=== PATIENT | male | born 1930 | race Caucasian/White ===

== ENCOUNTER 2017-02-25 10:28 | Inpatient (IN) ==
--- NOTE | 2017-02-25 10:44 | EKG Report ---
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
[2017-02-25 10:52] LABS: Basophils % 0.3 % (0.0-0.8); Eosinophils # 0.2 10*3/uL (0.0-0.87); Eosinophils % 2.6 % (0.00-10.9); Hematocrit 35.1 VOL% (42.0-52.0); Immature Granulocytes % 0.3 %; Immature Granulocytes Absolute 0.03 #; Lymphocytes # 1.2 10*3/uL (1.4-4.0); Lymphocytes % 13.5 % (21.2-54.2); Mean Corpuscular HGB Conc 34.2 GM/DL (32-36); Mean Corpuscular Hemoglobin 33 PG (27-34); Mean Platelet Volume 9.7 FL (9.6-12.0); Monocytes # 0.7 10*3/uL (0.11-0.8); Neutrophils # 6.8 10*3/uL (1.4-7.4); Neutrophils % 75.3 % (38.7-73.9); Platelet Count 158 T/CUMM (130-400); Red Blood Count 3.62 MC/CUMM (3.8-5.5); Red Cell Distribution Width 13.7 % (9.3-17.3); White Blood Count 9.1 T/CUMM (4-12)
[2017-02-25 11:24] LABS: Albumin 3.5 G/DL (3.4-5.0); Bilirubin,Total 0.4 MG/DL (0.2-1.0); Calcium 8.7 MG/DL (8.5-10.1); Magnesium 2.3 MG/DL (1.8-2.4); Osmolality,Calculated 285.7 MOS/KG (273-304); Potassium 4.4 MMOL/L (3.5-5.1); Total Protein 6.5 G/DL (6.4-8.3); Troponin I Only 0.043 NG/ML (0.00-0.045)
--- NOTE | 2017-02-25 11:38 | CT Report ---
History: Syncope Date: 02/25/2017 Study: CT head without contrast Comparison exam: No previous head CT available Transaxial CT sections were obtained through the head without IV contrast. This CT exam was performed using one or more the following dose reduction techniques: Automated exposure control, adjustment of the MA and/or KV according to patient size, or use of iterative reconstruction technique. The ventricles are midline in position without evidence of hydrocephalus. There is mild cerebral atrophy. There is no mass or parenchymal hemorrhage. There is no gross CT evidence of acute cortical stroke. There is a small amount of ill-defined low density in the periventricular white matter without mass effect compatible with changes of small vessel disease. There is no acute extra-axial hematoma. There is no acute abnormality of the calvarium. The right maxillary sinus is opacified where seen. Impression: No acute intracranial process Prominent right maxillary sinusitis. Clinical follow-up of this sinus disease is recommended, in order to help exclude the possibility of underlying sinus obstruction PROCEDURE INTERPRETED AT [facility] [place] DEPARTMENT OF RADIOLOGY Final Report Signed by: Dr. Janet Akers
--- NOTE | 2017-02-25 11:57 | Emergency Department Note ---
Edson Marcial Brittany, am scribing for, and in the presence of, Kaiser Brian MD 10:42. Roc Marcial Doug C, MD, personally performed the services described in this documentation, ascribed by Alanna Sandhu in my presence, and it is both accurate and complete . Arrival - Arrival Chief Complaint: Syncope Stated Complaint: syncopal episode ED Nursing Triage Note: pt reports he had a syncopal episode yesterday afternoon and fell first into a hot frying low. pt has gibbs to face. Mode of Arrival: Wheelchair Limitations: No Limitations Source: Patient, Significant other, RN Notes Reviewed Time Seen by Provider: 02/25/17 10:38 - History of Present Illness HPI Narrative: Patient 76-year-old white male who states he and his are in the kitchen cooking some fish when he had a syncopal episode. He fell forward and hit the top of the stove spilling fish onto the floor splashing some hot grease into his face. He had absolutely no symptoms prior to the syncopal episode his states he was unconscious for about 3 seconds. He did not have any seizure- like activity and states that he was awake and alert when he came to. He states he has absolutely no pain not even in the superficial gibbs on his face. He denies any neck or back discomfort his states he has been thinking clearly since this event. They decided not to come to the emergency room last night for some reason. Patient states that he noticed some difficulty with his vision all day yesterday and tells me he had a syncopal episode 6 months ago which was also preceded by some visual disturbance. He denies any chest pain or palpitations. He does not have any nausea, vomiting or diarrhea. There is no history of febrile illness. Onset (ago): day(s) (episode occurred yesterday) Allergies/Adverse Reactions: Allergies Allergy/AdvReac Type Severity Reaction Status Date / Time No Known Allergies Allergy Verified 04/14/16 16:21 Home Medications: Home Medications Medication Instructions Recorded Confirmed Type Allopurinol 100 mg PO DAILY 07/12/15 04/14/16 History Atorvastatin [Lipitor] 10 mg PO DAILY 07/12/15 04/14/16 History Carvedilol [Coreg] 25 mg PO BID 07/12/15 04/14/16 History Magnesium Oxide [Magnesium] 400 mg PO DAILY 07/12/15 04/14/16 History Niacin (Inositol Niacinate) 500 mg PO DAILY 07/12/15 04/14/16 History [Niacin 500 mg Capsule] Omeprazole [Prilosec] 20 mg PO BEDTIME 07/12/15 04/14/16 History Aspirin EC Tab 81 mg PO DAILY tablet 07/20/15 04/14/16 Rx Minoxidil [Loniten] 2.5 mg PO BID #60 tablet 07/20/15 04/14/16 Rx Nitroglycerin Sl Tab [Nitrostat] 0.4 mg SL Q5M PRN #25 tablet 07/20/15 04/14/16 Rx Clopidogrel [Plavix] 75 mg PO DAILY 01/18/16 04/14/16 History Isosorbide Dinitrate 10 mg PO BID 01/18/16 04/14/16 History Trazodone HCl 100 mg PO BEDTIME 01/18/16 04/14/16 History Pregabalin [Lyrica] 50 mg PO BID 04/14/16 04/14/16 History Albuterol/Ipratropium Neb [Duoneb] 3 ml RESP TX RT Q4H WA 04/27/16 Rx nebulization solution Alum/Mag/Simeth Max Str Liquid 30 ml PO Q4H PRN #0 udcup 04/27/16 Rx [Mylanta Max Strength Liquid] Bisoprolol [Zebeta] 2.5 mg PO DAILY tablet 04/27/16 Rx Cyclobenzaprine [Flexeril] 5 mg PO BEDTIME tablet 04/27/16 Rx Furosemide Tab [Lasix Tab] 40 mg PO DAILY tablet 04/27/16 Rx Iron (Carbonyl) [Feosol Natural 45 mg PO BID tablet 04/27/16 Rx Release Tab] Magnesium Hydroxide Susp [Milk of 30 ml PO BID PRN #0 udcup 04/27/16 Rx Magnesia] Sertraline [Zoloft] 25 mg PO BEDTIME tablet 04/27/16 Rx Spironolactone [Aldactone] 6.25 mg PO DAILY #30 tablet 04/27/16 Rx Review of System - Review of System 12 point system: reviewed and no additional remarkable complaints except as stated - Review of System Constitutional: Absent: chills, fever, weakness Eyes: Present: as per HPI, vision change Head/Ears/Nose/Throat: Absent: nasal drainage, sore throat Respiratory: Absent: respiratory distress Cardiovascular: Present: as per HPI, syncope. Absent: chest pain, palpitations Gastrointestinal: Present: as per HPI. Absent: abdominal pain, nausea, vomiting , diarrhea, constipation, melena, hematochezia Genitourinary male: Absent: urgency, dysuria, frequency Musculoskeletal: Absent: arm pain, back pain, leg pain, neck pain Skin: Present: as per HPI. Absent: rash Neurological: Present: as per HPI. Absent: headache, weakness, numbness, paresthesias Psychiatric: Absent: anxiety, depression Hematological/Lymphatic: Absent: easy bleeding, easy bruising Medical,Surgical,& Family Hx - Medical History Cardio: History of: CHF, CAD (prior [place] with stents), Hypertension, Cardiovascular Problems (status post cath with stents) Endocrine: History of: Dyslipidemia Rheumatology: History of;: Gout Renal: History of: Renal Failure (Baseline creatinine 1.5-1.7) - Surgical History Cardiac Surgeries: Sugical HX of: Cardiac Catheterization Abdominal Surgeries: Surgical HX of: Appendectomy Reproductive Surgeries: Surgical HX of;: Prostate Surgery - Family History Family History: Reports;: Family Cancer (brother skin ca), Family Heart Disease (brother cabg) - Social History Smoking Status: Unknown if ever smoked Exam Vital Signs: Vital Signs Temperature 97.8 F 02/25/17 10:28 Pulse Rate 77 02/25/17 10:28 Respiratory Rate 18 02/25/17 10:28 Blood Pressure 157/72 02/25/17 10:28 O2 Sat by Pulse Oximetry 98 02/25/17 10:28 - General General appearance: alert, in no apparent distress - Head Head exam: Present: normocephalic. Absent: atraumatic (patient has superficial gibbs diffusely over the face) - Eye Eye exam: Present: PERRL, EOMI - ENT ENT exam: Present: normal exam, normal oropharynx - Neck Neck exam: Present: normal inspection, full ROM, trachea midline - Chest Chest inspection: Present: normal inspection, symmetric chest wall rise - Respiratory Respiratory exam: Present: normal lung sounds bilaterally. Absent: rales, rhonchi, wheezes - Cardiovascular Cardiovascular exam: Present: regular rate, normal rhythm, murmur (4/6 systolic ejection murmur loudest at the left base). Absent: normal heart sounds - Abdominal Exam Abdominal exam: Present: soft, normal bowel sounds. Absent: distention, tenderness - Extremities Exam Extremities exam: Present: normal inspection - Back Exam Back exam: Present: normal inspection - Neurological Exam Neurological exam: Present: alert, oriented X3, CN II-XII intact. Absent: motor sensory deficit - Psychiatric Psychiatric exam: Present: normal affect, normal mood - Skin Skin exam: Present: warm, dry, other (patient has diffuse superficial gibbs over the face) Course Course Narrative: Patient's clinical presentation, laboratory regular findings were discussed with Brandon who is covering the hospitalist service. Patient will be seen here in the emergency room and evaluated for admission Results - Labs CBC & BMP: 02/25/17 10:45 02/25/17 10:45 Lab Results: I have reviewed the patients labs Labs: Laboratory Tests 02/25/17 02/25/17 02/25/17 10:45 10:45 10:45 WBC 9.1 RBC 3.62 L Hgb 12.0 L Hct 35.1 L MCV 97.0 MCH 33 MCHC 34.2 RDW 13.7 Plt Count 158 MPV 9.7 Neut % (Auto) 75.3 H Lymph % (Auto) 13.5 L [place] % (Auto) 8.0 Eos % (Auto) 2.6 Baso % (Auto) 0.3 Neut # (Auto) 6.8 Lymph # (Auto) 1.2 L [place] # (Auto) 0.7 Eos # (Auto) 0.2 Baso # (Auto) 0.0 Immature Gran % 0.3 Nucleated RBC % 0.0 Immature Gran # 0.03 Nucleated RBCs # 0.00 Sodium 138 Potassium 4.4 Chloride 102 Carbon Dioxide 28 Anion Gap 12.4 BUN 44 H Creatinine 1.70 H GFR Calculation 43 BUN/Creatinine Ratio 25.00 H Glucose 104 Calculated Osmolality 285.7 Calcium 8.7 Magnesium 2.3 Total Bilirubin 0.40 AST 15 ALT 18 Alkaline Phosphatase 83 Troponin I 0.043 B-Natriuretic Peptide 110 H Total Protein 6.5 Albumin 3.5 Globulin 3.0 Albumin/Globulin Ratio 1.1 - EKG EKG results: interpreted by KELLI, sinus rhythm (73 bpm) - Diagnostic Findings Procedure: Chest x-ray: report reviewed by me (No acute abnormality), CT: report reviewed by me (CT Head: No acute intracranial process. Prominent right maxillary sinusitis. Clinical follow-up of this sinus disease is recommended, in order to help exclude the possibility of underlying sinus obstruction.) Disposition Clinical Impression: Syncope Case discussed with: patient Disposition: Still a Patient Time of Disposition: 11:57
--- NOTE | 2017-02-25 12:46 | XRay Report ---
History: Syncope Date: 02/25/2017 Study: Chest x-ray AP portable Comparison exam: April 27, 2016 chest x-ray There is borderline cardiomegaly. There is no mediastinal mass. There is mild aortic arch calcification. The pulmonary vasculature is not engorged. There is some minimal parenchymal and pleural scarring in the lower left hemithorax. There is no acute infiltrate or gross layering pleural effusion. Osseous structures are unchanged with mild thoracic spondylosis. Prominent asymmetric degenerative changes of the right glenohumeral joint are noted, with prominent joint space narrowing and osteophyte formation. Impression: No definite acute cardiopulmonary process. Mild scarring in the lower left hemithorax. Degenerative changes of the right shoulder PROCEDURE INTERPRETED AT [facility] DEPARTMENT OF RADIOLOGY Final Report Signed by: Dr. Janet Akers
--- NOTE | 2017-02-25 12:53 | Hospitalist History & Physical ---
<Amol Damico - Last Filed: 02/25/17 15:20> Assessment and Plan (1) Syncope Status: Acute Assessment and plan: Admit to service. Telemetry monitoring. Orthostatic blood pressures. Bedrest. IV fluids. Consult cardiology to see. Current Visit: Yes (2) Chronic renal insufficiency, stage III (moderate) Status: Acute Current Visit: No (3) LEESA (obstructive sleep apnea) Status: Acute Current Visit: No (4) Hypertension Status: Acute Current Visit: No (5) CAD (coronary artery disease) Status: Chronic Current Visit: No History of Present Illness Chief complaint: syncopal episode History of present illness: Mr. Bull is a 86 year old white male with a history of syncope, hypertension , nstemi, CAD, CHF, pulmonary edema, and LEESA that presented to the ED today after a syncopal episode that occurred yesterday. According to patient and his , patient was sitting on a stool in front of the stove around 4 pm frying fish when he blacked out. Pt. stated that right before the incident he felt " a little dizzy" and his vision began to blur. The patient fell straight over onto the stove and his who was nearby was able to pull the hot grease off the stove. Pt. reportedly loss consciousness for about 3 seconds but came to. He has no recollection of incident. The patient did sustain 1st degree gibbs to his face. Pt. denies sustaining any other injuries. Pt. denies any head, neck or back discomfort. Pt also denied numbness, tingling, weakness, or tinnuitis before or after injury. Pt. does report having a similar issue about 6 months ago but did not seek medical attention. Currently in ED, pt. denies shortness of breath, chest pain, or vision loss, n,v. Pt's PCP is Dr. Stevens and he sees Dr. Wei for cardiac issues. Pt. will be admitted to the hospitalist service for eval and treatment. Home Medications Medication Instructions Recorded Confirmed Type Allopurinol 100 mg PO DAILY 07/12/15 02/25/17 History Atorvastatin [Lipitor] 10 mg PO DAILY 07/12/15 02/25/17 History Carvedilol [Coreg] 25 mg PO BID 07/12/15 02/25/17 History Omeprazole [Prilosec] 20 mg PO BEDTIME 07/12/15 02/25/17 History Aspirin EC Tab 81 mg PO DAILY tablet 07/20/15 02/25/17 Rx Nitroglycerin Sl Tab [Nitrostat] 0.4 mg SL Q5M PRN #25 tablet 07/20/15 02/25/17 Rx Clopidogrel [Plavix] 75 mg PO DAILY 01/18/16 02/25/17 History Furosemide Tab [Lasix Tab] 40 mg PO DAILY tablet 04/27/16 02/25/17 Rx Ferrous Sulfate [Ferrous Sulfate] 325 mg PO DAILY 02/25/17 02/25/17 History Finasteride 5 mg PO DAILY 02/25/17 02/25/17 History Gabapentin 300 mg PO BID 02/25/17 02/25/17 History Lisinopril 20 mg PO DAILY 02/25/17 02/25/17 History Multivitamin/Iron/Folic Acid 1 each PO DAILY 02/25/17 02/25/17 History [Centrum Complete Multivit Tab] Pramipexole Di-HCl [Pramipexole 0.5 mg PO DAILY 02/25/17 02/25/17 History Dihydrochloride] Allergies Allergy/AdvReac Type Severity Reaction Status Date / Time No Known Allergies Allergy Verified 04/14/16 16:21 Medical,Surgical,& Family Hx - Medical History Cardio: History of: CHF, CAD (prior [place] with stents), Hypertension, Cardiovascular Problems (status post cath with stents) Endocrine: History of: Dyslipidemia Rheumatology: History of;: Gout Renal: History of: Renal Failure (Baseline creatinine 1.5-1.7) Genitourinary: History of: Kidney Stones - Surgical History Cardiac Surgeries: Sugical HX of: Cardiac Catheterization Abdominal Surgeries: Surgical HX of: Appendectomy Reproductive Surgeries: Surgical HX of;: Prostate Surgery - Family History Family History: Reports;: Family Cancer (brother skin ca), Family Heart Disease (brother cabg) - Social History Smoking Status: Never smoker Frequency of Alcohol Use: None Type of Drug Use: None Marital Status: Lives With:: Spouse Functional capacity: independent ambulation - Constitutional Constitutional: Absent: chills, fever(s), headache(s), weakness - EENT Eyes: Present: blurry vision, loss of vision (before blacking out pt lost orders ) Ears: Present: decreased hearing. Absent: ear discharge Nose, mouth and throat: Absent: headache(s), sore throat - Cardiovascular Cardiovascular: Present: dyspnea on exertion. Absent: chest pain at rest, edema - Respiratory Respiratory: Present: dyspnea on exertion - Gastrointestinal Gastrointestinal: Absent: abdominal pain, nausea, vomiting - Genitourinary Genitourinary: Absent: difficulty urinating, urinary frequency - Musculoskeletal Musculoskeletal: Absent: back pain, limited range of motion - Neurological Neurological: Present: dizziness, syncope. Absent: confusion, headache(s), numbness - Psychiatric Psychiatric: Absent: anxiety, depression - Hematologic/Lymphatic Hematologic/Lymphatic: Present: easy bruising. Absent: easy bleeding Exam - Constitutional Vitals: Period Temp Pulse Resp BP Sys/Rolle Pulse Ox Last 24 Hr 97.8 F 70-77 17-19 136-157/58-80 98-98 General appearance: normal weight, no acute distress - Head Head exam: Present: normal inspection, normocephalic, atraumatic - Eye Eye exam: Present: EOMI, other Pupils: Present: JONELLE. Absent: dilated - ENT ENT exam: Present: other - Neck Neck exam: Present: normal inspection. Absent: thyromegaly - Respiratory Respiratory exam: Present: clear to auscultation bilaterally. Absent: wheezes - Cardiovascular Cardiovascular exam: Present: regular rate and rhythm, other (pt. has murmur) - GI/Abdominal GI/Abdominal exam: Present: normal bowel sounds, soft. Absent: tenderness - Extremities Exam Extremities exam: Present: normal capillary refill, full ROM. Absent: edema - Neurological Exam Neurological exam: Present: alert, oriented X3, normal gait - Psychiatric Psychiatric exam: Present: normal affect, normal mood - Skin Skin exam: Present: normal color, warm, dry, other (pt. has 1st degree burn to face. vesicles) Results - Labs CBC & BMP: 02/25/17 10:45 02/25/17 10:45 Lab Results: I have reviewed the past 24 hour labs <Jenn Zamudio - Last Filed: 02/25/17 16:49> History of Present Illness History of present illness: Mr. Bull is a 86 year old male with a history of Parkinson's disease, HTN, CAD, LEESA who presented to the hospital s/p a syncopal episode. On 02/24, patient was sitting on a stool frying fish when he suddenly felt nauseated and saw the lights go black. He was passed out for approximately 5 seconds. He fell face forward into the frying low and his quickly pulled the grease low off of the stove. She denies any fecal or urinary incontinence, twitching, or tongue biting. He denies any chest pain, shortness of breath or palpitations prior to the event, but he does admit to having chest pain on exertion for the last 2 months. Patient reports he had a similar episode happened approximately 6 months ago while walking to the bedroom. He said he felt nauseated prior to that syncopal episode as well. He spoke to a family member who is an EMT who recommended he come to the emergency department for further evaluation and treatment. We were asked to admit. Patient was interviewed and personally examined by me. General: he has superficial gibbs on his forehead with swelling under his right eye and swelling to the left cheek and superficial excoriations to the bridge of the nose. Cardiovascular exam is regular rate and rhythm with a 3/6 systolic murmur Lungs are clear to auscultation bilaterally with good aeration nonlabored breathing noted Abdomen is soft nontender nondistended positive bowel sounds no organomegaly or masses appreciated. 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 Will place ELIZABETH hose. Consider Midodrin. Check orthostatics. Await cardiology evaluation to workup the chest pain as well. Continue telemetry. TSH. Cardiac markers. I will be away several days. 1 of my associates will follow in my absence. Exam - Constitutional Vitals: Period Temp Pulse Resp BP Sys/Rolle Pulse Ox Last 24 Hr 97.2 F-98.0 F 70-77 17-20 136-157/57-80 96-98 Results - Labs CBC & BMP: 02/25/17 10:45 02/25/17 10:45
[2017-02-25] MEDS ORDERED: ACETAMINOPHEN 325 MG TABLET PO PRN (12:58)
[2017-02-25] MEDS ORDERED: DOCUSATE SODIUM 100 MG CAPSULE PO PRN (12:58)
[2017-02-25] MEDS ORDERED: SODIUM CHLORIDE 0.9% 1,000 ML IV SCH (14:00)
[2017-02-25] MEDS ORDERED: NITROGLYCERIN SL 0.4 MG TABLET SL PRN (14:47)
[2017-02-25 15:10] LABS: Apearance,Urine CLEAR (Clear); Bilirubin,Urine Negative (Negative); Blood, Urine Negative (Negative); Glucose,Urine (UA) Negative (Negative); Ketones,Urine Negative (Negative); Mucus,Urine Occasional /LPF (Occasional); Nitrite,Urine Negative (Negative); Protein,Urine Negative; RBC,Urine 1 /HPF (0-4); Squamous Epithelial Cell,Urine Occasional /HPF (0-10); Urine Color Straw (Yellow); Urine Specific Gravity 1.008 (1.001-1.035); Urine Urobilinogen < 2.0 EU/DL (0.2-1.0); WBC,Urine 1 /HPF (0-6)
[2017-02-25] MEDS: SODIUM CHLORIDE 0.9% 1,000 ML IV SCH (17:49)
[2017-02-25 18:33] LABS: Troponin I Only 0.037 NG/ML (0.00-0.045)
--- NOTE | 2017-02-25 18:33 | Cardiology Consult Note ---
Assessment and Plan (1) Syncope Status: Acute Current Visit: Yes (2) Aortic stenosis Problem details: 3+ Status: Acute Current Visit: No (3) Chronic renal insufficiency, stage III (moderate) Status: Acute Current Visit: No (4) Hypertension Status: Acute Current Visit: No (5) Moderate mitral regurgitation Status: Acute Current Visit: No (6) LEESA (obstructive sleep apnea) Status: Acute Current Visit: No (7) CAD (coronary artery disease) Status: Chronic Current Visit: No (8) Carotid bruit Status: Acute Current Visit: Yes History of Present Illness - Data of Consult Patient: known to practice within the last 3 years Consult date: 02/25/17 Requesting Physician: Jenn Zamudio - Consult Narrative Reason for consult: Syncope History of present illness: Park Maintenance Technician: Dr. Soares The patient is an 86-year-old white male with a history of coronary artery disease, at least moderate aortic stenosis, hypertension, hyperlipidemia, renal insufficiency. He is admitted for syncope. He was sitting on a stool frying fish when he experienced a decrease in his vision, followed by syncope such that he fell with his face in the frying low. He was out a few seconds, and when he came to he was weak but not postictal. This was witnessed by his he denies any seizure-like activity, there was no bowel or bladder incontinence , tongue biting or significant head trauma. His last episode was approximately 6 months ago, and these have been 2 isolated events. He may have some more minor presyncopal episodes that have occurred on a couple of occasions. He does not necessarily experience tachypalpitations, but does notice that he feels his heart racing when he exerts himself. His observes that about a month after his last visit with Dr. Soares, which I believe was in November , he has had a noticeable increase in his dyspnea on exertion. He clutches his chest often when he returns. He believes he can walk 150 yards, although the grandson and report this more as 50 yards. He really denies having any chest pain despite reports of him clutching his chest. They do observe that he takes nitroglycerin on occasion when he returns. He denies any other recent illness. No melena, bright blood per rectum, nausea , vomiting, diarrhea, dysuria, coughs, colds. No recent change in his medications. At the time of this event, shortly thereafter his systolic blood pressure was taken and was in the low 100s. He did not have orthostasis in the emergency room. Impression and plan: 1. Syncope-I suspect that he has severe aortic stenosis, and possibly a contribution of carotid stenosis contributing to this symptomatology. We will check a repeat echocardiogram and carotid ultrasound to evaluate the suspicions. Alternatively, this could represent an arrhythmia and if no etiology is discovered he may benefit from a 30 day event monitor. 2. Coronary artery disease-he does not appear to have had an acute coronary syndrome. 3. Chronic renal insufficiency. 4. Hypertension. 5. Hyperlipidemia. 6. Carotid bruit, right greater than left. 7. Aortic stenosis. 8. Mitral regurgitation. CC: Jenn Zamudio MD - Home Medications and Allergies Home Medications: Home Medications Medication Instructions Recorded Confirmed Type Allopurinol 100 mg PO DAILY 07/12/15 02/25/17 History Atorvastatin [Lipitor] 10 mg PO DAILY 07/12/15 02/25/17 History Carvedilol [Coreg] 25 mg PO BID 07/12/15 02/25/17 History Omeprazole [Prilosec] 20 mg PO BEDTIME 07/12/15 02/25/17 History Aspirin EC Tab 81 mg PO DAILY tablet 07/20/15 02/25/17 Rx Nitroglycerin Sl Tab [Nitrostat] 0.4 mg SL Q5M PRN #25 tablet 07/20/15 02/25/17 Rx Clopidogrel [Plavix] 75 mg PO DAILY 01/18/16 02/25/17 History Furosemide Tab [Lasix Tab] 40 mg PO DAILY tablet 04/27/16 02/25/17 Rx Ferrous Sulfate [Ferrous Sulfate] 325 mg PO DAILY 02/25/17 02/25/17 History Finasteride 5 mg PO DAILY 02/25/17 02/25/17 History Gabapentin 300 mg PO BID 02/25/17 02/25/17 History Lisinopril 20 mg PO DAILY 02/25/17 02/25/17 History Multivitamin/Iron/Folic Acid 1 each PO DAILY 02/25/17 02/25/17 History [Centrum Complete Multivit Tab] Pramipexole Di-HCl [Pramipexole 0.5 mg PO DAILY 02/25/17 02/25/17 History Dihydrochloride] Allergies/Adverse Reactions: Allergies Allergy/AdvReac Type Severity Reaction Status Date / Time No Known Allergies Allergy Verified 04/14/16 16:21 12 point system: reviewed and no additional remarkable complaints except as stated Medical,Surgical,& Family Hx - Medical History Cardio: History of: CHF, CAD (prior VT with stents), Hypertension, Cardiovascular Problems (status post cath with stents) Endocrine: History of: Dyslipidemia Rheumatology: History of;: Gout Renal: History of: Renal Failure (Baseline creatinine 1.5-1.7) Genitourinary: History of: Kidney Stones Gastrointestinal: History of: GERD Musculoskeletal: History of: Amputation - Surgical History Cardiac Surgeries: Sugical HX of: Cardiac Catheterization Thoracic Surgeries: Patient denies;: Organ Transplant, Lobectomy Neurologic Surgeries: Patient denies: Neurologic Surgery Abdominal Surgeries: Surgical HX of: Abdominal Surgery, Appendectomy Reproductive Surgeries: Surgical HX of;: Prostate Surgery Orthopedic Surgeries: Surgical HX of;: Orthopedic Surgery (RIGHT KNEE SCOPE) - Family History Family History: Reports;: Family Cancer (brother skin ca), Family Heart Disease (brother cabg) - Social History Smoking Status: Never smoker Frequency of Alcohol Use: None Type of Drug Use: None Marital Status: Lives With:: Spouse Functional capacity: independent ambulation Physical Examination Vital Signs Temp Pulse Resp BP Pulse Ox 97.8 F 77 18 157/72 98 02/25/17 10:28 02/25/17 10:28 02/25/17 10:28 02/25/17 10:28 02/25/17 10:28 Other: General appearance: normal weight, no acute distress - Head Head exam: Present: There are some skin excoriations related to gibbs from the frying low. Absent: hematoma, laceration - Eye Eye exam: Present: EOMI. Absent: conjunctival injection, nystagmus, periorbital swelling, scleral icterus, laceration to eyelids Pupils: Present: PERRL. Absent: constricted, dilated, fixed, irregular, unequal - ENT ENT exam: Present: normal exam, normal external ear exam - Neck Neck exam: Present: normal inspection. Absent: lymphadenopathy, meningismus, tenderness, thyromegaly - Respiratory Respiratory exam: Present: clear to auscultation bilaterally. Absent: accessory muscle use, chest wall tenderness - Cardiovascular Cardiovascular exam: Present: regular rate and rhythm with a 4/6 holosystolic murmur that radiates to the carotid arteries, also lower pitched apical systolic murmur, bilateral carotid bruits right greater than left. Absent: gallop, JVD, rubs - GI/Abdominal GI/Abdominal exam: Present: normal bowel sounds, soft. Absent: distended, firm , guarding, hernia, mass, tenderness, rebound. - Extremities Exam Extremities exam: Present: Decreased pulses in the bilateral feet. Absent: calf tenderness, edema - Back Exam Back exam: Present: normal inspection. Absent: muscle spasm, vertebral tenderness - Neurological Exam Neurological exam: Present: alert, oriented X3, grossly intact without resting or intention tremor - Psychiatric Psychiatric exam: Present: normal affect, normal mood - Skin Skin exam: Present: normal color, warm, dry, intact. Absent: cyanosis, diaphoretic, rash, urticaria Result/EKG - Labs CBC & BMP: 02/25/17 10:45 02/25/17 10:45 Lab Results: I have reviewed the past 24 hour labs Labs: Laboratory Results - last 24 hr 02/25/17 02/25/17 02/25/17 10:45 10:45 10:45 WBC 9.1 RBC 3.62 L Hgb 12.0 L Hct 35.1 L MCV 97.0 MCH 33 MCHC 34.2 RDW 13.7 Plt Count 158 MPV 9.7 Neut % (Auto) 75.3 H Lymph % (Auto) 13.5 L [place] % (Auto) 8.0 Eos % (Auto) 2.6 Baso % (Auto) 0.3 Neut # (Auto) 6.8 Lymph # (Auto) 1.2 L [place] # (Auto) 0.7 Eos # (Auto) 0.2 Baso # (Auto) 0.0 Immature Gran % 0.3 Nucleated RBC % 0.0 Immature Gran # 0.03 Nucleated RBCs # 0.00 Sodium 138 Potassium 4.4 Chloride 102 Carbon Dioxide 28 Anion Gap 12.4 BUN 44 H Creatinine 1.70 H GFR Calculation 43 BUN/Creatinine Ratio 25.00 H Glucose 104 Calculated Osmolality 285.7 Calcium 8.7 Magnesium 2.3 Total Bilirubin 0.40 AST 15 ALT 18 Alkaline Phosphatase 83 Troponin I 0.043 B-Natriuretic Peptide 110 H Total Protein 6.5 Albumin 3.5 Globulin 3.0 Albumin/Globulin Ratio 1.1 Urine Color Urine Appearance Urine pH Ur Specific [place] Urine Protein Urine Glucose (UA) Urine Ketones Urine Blood Urine Nitrate Urine Bilirubin Urine Urobilinogen Urine Leukocytes Urine RBC Urine WBC Ur Squamous Epith Cells Urine Mucus Ur Culture Indicated? 02/25/17 12:58 WBC RBC Hgb Hct MCV MCH MCHC RDW Plt Count MPV Neut % (Auto) Lymph % (Auto) [place] % (Auto) Eos % (Auto) Baso % (Auto) Neut # (Auto) Lymph # (Auto) [place] # (Auto) Eos # (Auto) Baso # (Auto) Immature Gran % Nucleated RBC % Immature Gran # Nucleated RBCs # Sodium Potassium Chloride Carbon Dioxide Anion Gap BUN Creatinine GFR Calculation BUN/Creatinine Ratio Glucose Calculated Osmolality Calcium Magnesium Total Bilirubin AST ALT Alkaline Phosphatase Troponin I B-Natriuretic Peptide Total Protein Albumin Globulin Albumin/Globulin Ratio Urine Color Straw Urine Appearance Clear Urine pH 6.0 Ur Specific [place] 1.008 Urine Protein Negative Urine Glucose (UA) Negative Urine Ketones Negative Urine Blood Negative Urine Nitrate Negative Urine Bilirubin Negative Urine Urobilinogen < 2.0 H Urine Leukocytes Negative Urine RBC 1 Urine WBC 1 Ur Squamous Epith Cells Occasional Urine Mucus Occasional Ur Culture Indicated? Not indicated - Diagnostic Findings Procedure: Chest x-ray: report reviewed by me, CT: report reviewed by me - EKG EKG results: interpreted by me, sinus rhythm, no acute changes
[2017-02-25] MEDS: SILVER SULFADIAZINE 1% CREAM 25 GM TUBE TOP SCH (20:19)
[2017-02-26 01:33] LABS: Basophils % 0.4 % (0.0-0.8); Eosinophils # 0.2 10*3/uL (0.0-0.87); Eosinophils % 3.3 % (0.00-10.9); Hematocrit 33.7 VOL% (42.0-52.0); Hemoglobin 11.3 GM/DL (14.0-18.0); Immature Granulocytes % 0.4 %; Immature Granulocytes Absolute 0.03 #; Lymphocytes # 1.2 10*3/uL (1.4-4.0); Lymphocytes % 16.5 % (21.2-54.2); Mean Corpuscular HGB Conc 33.5 GM/DL (32-36); Mean Corpuscular Hemoglobin 33 PG (27-34); Mean Platelet Volume 9.8 FL (9.6-12.0); Monocytes # 0.7 10*3/uL (0.11-0.8); Monocytes % 9.1 % (1.7-12.7); Neutrophils # 5.1 10*3/uL (1.4-7.4); Neutrophils % 70.3 % (38.7-73.9); Platelet Count 151 T/CUMM (130-400); Red Blood Count 3.44 MC/CUMM (3.8-5.5); Red Cell Distribution Width 13.8 % (9.3-17.3); White Blood Count 7.3 T/CUMM (4-12)
[2017-02-26 01:50] LABS: Troponin I Only 0.066 NG/ML (0.00-0.045)
[2017-02-26 01:55] LABS: Calcium 8.5 MG/DL (8.5-10.1); Magnesium 2.1 MG/DL (1.8-2.4); Osmolality,Calculated 292.3 MOS/KG (273-304); Potassium 4.4 MMOL/L (3.5-5.1); Risk Ratio 2.87; Thyroid Stimulating Hormone 1.39 uIU/ml (0.358-3.74); VLDL CHOLESTEROL 40.8 MG/DL
[2017-02-26 05:58] LABS: Troponin I Only 0.065 NG/ML (0.00-0.045)
[2017-02-26] MEDS: SODIUM CHLORIDE 0.9% 1,000 ML IV SCH ×2 (06:58→12:04)
--- NOTE | 2017-02-26 08:11 | EKG Report ---
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
[2017-02-26] MEDS: ASPIRIN EC 81 MG TABLET PO SCH (08:33)
[2017-02-26] MEDS: PANTOPRAZOLE 40 MG TABLET PO SCH (08:33)
[2017-02-26] MEDS: MULTIVITAMIN (CENTRUM) TABLET PO SCH (08:33)
[2017-02-26] MEDS: PRAMIPEXOLE 0.25 MG TABLET PO SCH (08:33)
[2017-02-26] MEDS: FERROUS SULFATE 325 MG TABLET PO SCH (08:33)
[2017-02-26] MEDS: ATORVASTATIN 10 MG TABLET PO SCH (08:33)
[2017-02-26] MEDS: FINASTERIDE 5 MG TABLET PO SCH (08:33)
[2017-02-26] MEDS: ALLOPURINOL 100 MG TABLET PO SCH (08:33)
[2017-02-26] MEDS: CLOPIDOGREL 75 MG TABLET PO SCH (08:33)
[2017-02-26] MEDS: SILVER SULFADIAZINE 1% CREAM 25 GM TUBE TOP SCH ×2 (08:35→20:46)
[2017-02-26] MEDS ORDERED: LISINOPRIL 20 MG TABLET PO SCH (09:00)
--- NOTE | 2017-02-26 09:54 | Hospitalist Progress Note ---
<Amol Damico - Last Filed: 02/26/17 09:59> Assessment and Plan (1) Syncope Status: Acute Assessment and plan: Admit to service. Telemetry monitoring. Orthostatic blood pressures. Bedrest. IV fluids. Consult cardiology to see. 02/26/17 Pt. denies any syncopal episodes overnight. Cardiology has seen patient. Awaiting results of echo. Blood pressure stable. Continue IV fluids. Current Visit: Yes (2) Chronic renal insufficiency, stage III (moderate) Status: Acute Assessment and plan: Patient has slight increase in creatinine today to 2. Continue IV fluid hydration. Continue to monitor labs. Current Visit: No (3) LEESA (obstructive sleep apnea) Status: Acute Current Visit: No (4) Hypertension Status: Acute Assessment and plan: Blood pressure stable. Current Visit: No (5) CAD (coronary artery disease) Status: Chronic Current Visit: No (6) Elevated troponin Status: Acute Assessment and plan: Patient has slight increase in troponin level this a.m. we will order serial troponin levels to monitor patient has already been seen by cardiology. They will continue to follow. Elevation could be secondary to renal dysfunction. Labs in a.m. Current Visit: Yes Hospitalist: Subjective Interval history: Patient seen and examined today. Patient is resting comfortably with at bedside. No apparent distress noted patient denies any chest pain, shortness of breath, or any other discomfort overnight or today. Patient also denies any syncopal episodes. Vital signs stable. We will continue to monitor labs. Exam - Constitutional Vitals: Period Temp Pulse Resp BP Sys/Rolle Pulse Ox Last 24 Hr 97.2 F-99.8 F 66-85 17-20 136-171/57-80 94-98 General appearance: normal weight, no acute distress - Head Head exam: Present: normal inspection, normocephalic - Eye Eye exam: Present: EOMI. Absent: periorbital swelling Pupils: Present: JONELLE. Absent: dilated - ENT ENT exam: Present: other (Patient has first-degree gibbs to face) - Neck Neck exam: Present: normal inspection. Absent: thyromegaly - Respiratory Respiratory exam: Present: clear to auscultation bilaterally. Absent: wheezes - Cardiovascular Cardiovascular exam: Present: systolic murmur - GI/Abdominal GI/Abdominal exam: Present: normal bowel sounds, soft. Absent: tenderness - Extremities Exam Extremities exam: Present: normal capillary refill, full ROM. Absent: edema - Neurological Exam Neurological exam: Present: alert, oriented X3, normal gait - Psychiatric Psychiatric exam: Present: normal affect, normal mood - Skin Skin exam: Present: normal color, warm, dry Results - Labs CBC & BMP: 02/26/17 01:06 02/26/17 01:06 Lab Results: I have reviewed the past 24 hour labs <Uriel Dahl - Last Filed: 02/26/17 16:38> Exam - Constitutional Vitals: Period Temp Pulse Resp BP Sys/Rolle Pulse Ox Last 24 Hr 97.9 F-99.8 F 66-85 18-20 153-187/64-74 94-97 Results - Labs CBC & BMP: 02/26/17 01:06 02/26/17 01:06
--- NOTE | 2017-02-26 12:03 | Cardiology Progress Note ---
Assessment and Plan (1) Syncope Status: Acute Current Visit: Yes (2) Aortic stenosis Problem details: 3+ Status: Acute Current Visit: No (3) Chronic renal insufficiency, stage III (moderate) Status: Acute Current Visit: No (4) Hypertension Status: Acute Current Visit: No (5) Moderate mitral regurgitation Status: Acute Current Visit: No (6) LEESA (obstructive sleep apnea) Status: Acute Current Visit: No (7) CAD (coronary artery disease) Status: Chronic Current Visit: No (8) Carotid bruit Status: Acute Current Visit: Yes Cardiology - PN: Subj Interval history: Chief Resource Officer: Dr. Soares Summary: The patient is an 86-year-old white male with a history of coronary artery disease, at least moderate aortic stenosis, hypertension, hyperlipidemia , renal insufficiency. He is admitted for syncope. There is also acknowledgment of a decline in his functional status, dyspnea on exertion and possibly some exertional chest discomfort although this is debated among the family. Cardiac biomarkers were mildly positive now. February 26, 2017: Evening was uneventful, he denies presyncope or syncope. Telemetry did not reveal any arrhythmias. We are awaiting the results of his echo. Aortic stenosis as a source of his syncope is strongly suspected. Impression and plan: 1. Syncope-I suspect that he has severe aortic stenosis, and possibly a contribution of carotid stenosis contributing to this symptomatology. We will check a repeat echocardiogram and carotid ultrasound to evaluate these suspicions. Alternatively, this could represent an arrhythmia and if no etiology is discovered he may benefit from a 30 day event monitor. 2. Coronary artery disease-clinically he did not seem to have an acute coronary syndrome. However, he is mildly elevated enzymes in the setting of renal insufficiency. This is nonspecific. 3. Chronic renal insufficiency-if he requires cardiac catheterization we will need to premedicate him with Mucomyst and bicarbonated IV fluids. 4. Hypertension-we will add a low-dose beta-ruchi. 5. Hyperlipidemia. 6. Carotid bruit, right greater than left-awaiting carotid ultrasound. 7. Aortic stenosis-awaiting echocardiogram. 8. Mitral regurgitation-awaiting echocardiogram. Exam (Progress Note) - Constitutional Vitals: Period Temp Pulse Resp BP Sys/Rolle Pulse Ox Last 24 Hr 97.2 F-99.8 F 66-85 17-20 136-187/57-80 94-98 Exam: General appearance: normal weight, no acute distress - Head Head exam: Present: There are some skin excoriations related to gibbs from the frying low. Absent: hematoma, laceration - Eye Eye exam: Present: EOMI. Absent: conjunctival injection, nystagmus, periorbital swelling, scleral icterus, laceration to eyelids Pupils: Present: PERRL. Absent: constricted, dilated, fixed, irregular, unequal - ENT ENT exam: Present: normal exam, normal external ear exam - Neck Neck exam: Present: normal inspection. Absent: lymphadenopathy, meningismus, tenderness, thyromegaly - Respiratory Respiratory exam: Present: clear to auscultation bilaterally. Absent: accessory muscle use, chest wall tenderness - Cardiovascular Cardiovascular exam: Present: regular rate and rhythm with a 4/6 holosystolic murmur that radiates to the carotid arteries, also lower pitched apical systolic murmur, bilateral carotid bruits right greater than left. Absent: gallop, JVD, rubs - GI/Abdominal GI/Abdominal exam: Present: normal bowel sounds, soft. Absent: distended, firm , guarding, hernia, mass, tenderness, rebound. - Extremities Exam Extremities exam: Present: Decreased pulses in the bilateral feet. Absent: calf tenderness, edema - Back Exam Back exam: Present: normal inspection. Absent: muscle spasm, vertebral tenderness - Neurological Exam Neurological exam: Present: alert, oriented X3, grossly intact without resting or intention tremor - Psychiatric Psychiatric exam: Present: normal affect, normal mood - Skin Skin exam: Present: normal color, warm, dry, intact lesions on his face from the gibbs acquired when his face fell onto the frying low. Absent: cyanosis, diaphoretic, rash, urticaria Result/EKG - Labs CBC & BMP: 02/26/17 01:06 02/26/17 01:06 Lab Results: I have reviewed the past 24 hour labs Labs: Laboratory Results - last 24 hr 02/25/17 02/25/17 02/26/17 12:58 17:56 01:06 WBC 7.3 RBC 3.44 L Hgb 11.3 L Hct 33.7 L MCV 98.0 MCH 33 MCHC 33.5 RDW 13.8 Plt Count 151 MPV 9.8 Neut % (Auto) 70.3 Lymph % (Auto) 16.5 L [place] % (Auto) 9.1 Eos % (Auto) 3.3 Baso % (Auto) 0.4 Neut # (Auto) 5.1 Lymph # (Auto) 1.2 L [place] # (Auto) 0.7 Eos # (Auto) 0.2 Baso # (Auto) 0.0 Immature Gran % 0.4 Nucleated RBC % 0.0 Immature Gran # 0.03 Nucleated RBCs # 0.00 Sodium Potassium Chloride Carbon Dioxide Anion Gap BUN Creatinine GFR Calculation BUN/Creatinine Ratio Glucose Calculated Osmolality Calcium Magnesium Total Creatine Kinase 106 CK-MB (CK-2) < 1.0 Troponin I 0.037 Triglycerides Cholesterol LDL Cholesterol VLDL Cholesterol HDL Cholesterol Heart Disease Risk Ratio Free T4 TSH 3rd Generation Urine Color Straw Urine Appearance Clear Urine pH 6.0 Ur Specific [place] 1.008 Urine Protein Negative Urine Glucose (UA) Negative Urine Ketones Negative Urine Blood Negative Urine Nitrate Negative Urine Bilirubin Negative Urine Urobilinogen < 2.0 H Urine Leukocytes Negative Urine RBC 1 Urine WBC 1 Ur Squamous Epith Cells Occasional Urine Mucus Occasional Ur Culture Indicated? Not indicated 02/26/17 02/26/17 02/26/17 01:06 01:06 01:06 WBC RBC Hgb Hct MCV MCH MCHC RDW Plt Count MPV Neut % (Auto) Lymph % (Auto) [place] % (Auto) Eos % (Auto) Baso % (Auto) Neut # (Auto) Lymph # (Auto) [place] # (Auto) Eos # (Auto) Baso # (Auto) Immature Gran % Nucleated RBC % Immature Gran # Nucleated RBCs # Sodium 141 Potassium 4.4 Chloride 107 Carbon Dioxide 25 Anion Gap 13.4 BUN 42 H Creatinine 2.00 H GFR Calculation 36 BUN/Creatinine Ratio 21.00 H Glucose 113 H Calculated Osmolality 292.3 Calcium 8.5 Magnesium 2.1 Total Creatine Kinase 80 D CK-MB (CK-2) < 1.0 Troponin I 0.066 H D Triglycerides 204 H Cholesterol 132 LDL Cholesterol 71.0 VLDL Cholesterol 40.8 HDL Cholesterol 46 Heart Disease Risk Ratio 2.87 Free T4 0.95 TSH 3rd Generation 1.390 Urine Color Urine Appearance Urine pH Ur Specific [place] Urine Protein Urine Glucose (UA) Urine Ketones Urine Blood Urine Nitrate Urine Bilirubin Urine Urobilinogen Urine Leukocytes Urine RBC Urine WBC Ur Squamous Epith Cells Urine Mucus Ur Culture Indicated? 02/26/17 04:41 WBC RBC Hgb Hct MCV MCH MCHC RDW Plt Count MPV Neut % (Auto) Lymph % (Auto) [place] % (Auto) Eos % (Auto) Baso % (Auto) Neut # (Auto) Lymph # (Auto) [place] # (Auto) Eos # (Auto) Baso # (Auto) Immature Gran % Nucleated RBC % Immature Gran # Nucleated RBCs # Sodium Potassium Chloride Carbon Dioxide Anion Gap BUN Creatinine GFR Calculation BUN/Creatinine Ratio Glucose Calculated Osmolality Calcium Magnesium Total Creatine Kinase 74 CK-MB (CK-2) < 1.0 Troponin I 0.065 H Triglycerides Cholesterol LDL Cholesterol VLDL Cholesterol HDL Cholesterol Heart Disease Risk Ratio Free T4 TSH 3rd Generation Urine Color Urine Appearance Urine pH Ur Specific [place] Urine Protein Urine Glucose (UA) Urine Ketones Urine Blood Urine Nitrate Urine Bilirubin Urine Urobilinogen Urine Leukocytes Urine RBC Urine WBC Ur Squamous Epith Cells Urine Mucus Ur Culture Indicated?
[2017-02-26] MEDS ORDERED: ONDANSETRON 4 MG/2 ML VIAL ONE (13:29)
[2017-02-26] MEDS ORDERED: ONDANSETRON 4 MG/2 ML VIAL IV PRN (13:32)
[2017-02-26 14:45] LABS: Troponin I Only 0.045 NG/ML (0.00-0.045)
--- NOTE | 2017-02-26 14:52 | Ultrasound Report ---
History: Carotid bruit Date: 02/26/2017 Study: Carotid duplex ultrasound Comparison exam: No previous similar Color Doppler, wave form analysis, and grayscale analysis of the cervical carotid arteries was performed. There is mild partially calcified plaque in either carotid bulb. Waveform analysis shows proper directional flow of the cervical carotid arteries. There is antegrade flow in either vertebral artery. The distal right ICA measures 5.3 mm diameter; the left measures 5.0 mm diameter. Peak systolic velocities are as follows: Right CCA 85 cm/s Right ICA 78 cm/s Right ECA 192 cm/s Right vertebral 55 cm/s Right IC/CC ratio 0.9 Left CCA 74 cm/s Left ICA 73 cm/s Left ECA 110 cm/s Left vertebral 70 cm/s Left IC/CC ratio 1.0 There is 0-15% diameter reduction narrowing of either internal carotid artery using indirect NASCET criteria. Ultrasound images were captured and archived. Impression: No hemodynamically significant internal carotid artery stenosis PROCEDURE INTERPRETED AT [facility] Final Report Signed by: Dr. Janet Akers
--- NOTE | 2017-02-26 15:53 | ECHO Report ---
Haseeb Bull Exam Date: 02/26/2017 11:23 Referring Physician: Technologist: Amaris Henao Age: 86 Ht (in): 72 Wt (lb): 205 Gender: M Exam Location: [facility] Echo Indications: syncope, carotid briut, NON- STEMI, CAD, Acute renal failure, CHF, LEESA, BP: 157 / 68 HR: 66 Rhythm: Sinus Technical Quality: Fair IMPRESSIONS Normal LV systolic function, ejection fraction 55%. Grade 2/4 diastolic dysfunction. Mild left ventricular hypertrophy. Mild mitral, tricuspid and pulmonic regurgitation. Severe aortic stenosis with mild aortic regurgitation. MEASUREMENTS (Male / Female) Normal Values 2D ECHO LV Diastolic Diameter PLAX 4.3 cm 4.2 - 5.9 / 3.9 - 5.3 cm LV Systolic Diameter PLAX 2.9 cm LV Fractional Shortening PLAX 33.3 % IVS Diastolic Thickness 1.3 cm 0.6 - 1.0 / 0.6 - 0.9 cm LVPW Diastolic Thickness 1.2 cm 0.6 - 1.0 / 0.6 - 0.9 cm RV Internal Dim ED PLAX 2.8 cm Aortic Root Diameter 3.0 cm LA Systolic Diameter LX 4.0 cm 3.0 - 4.0 / 2.7 - 3.8 cm DOPPLER TR Peak Velocity 145.0 cm/s TR Peak Gradient 8.4 mmHg FINDINGS Left Ventricle Mildly increased septal wall thickness. Mild concentric left ventricular hypertrophy with diastolic dysfunction. Left ventricular ejection fraction is estimated at 55%. Right Ventricle Normal right ventricular size and systolic function. Right Atrium Normal right atrial size. Left Atrium Normal left atrial size. Mitral Valve Mild mitral valve sclerosis. Mild mitral regurgitation. Aortic Valve There is aortic sclerosis with severe stenosis. Peak gradient is 60 mmHg, mean gradient is 32 mmHg. LVOT VTI is 23 cm, aortic valve VTI is 102 cm, with a ratio of 0.23. With an LVOT diameter of 2.2 cm, the aortic valve area by continuity equation measures 0.86 cm. There is also mild aortic regurgitation. Tricuspid Valve Mild tricuspid valve sclerosis. Trace to mild tricuspid valve regurgitation. Pulmonic Valve Pulmonic valve not well visualized. Trace pulmonary valve regurgitation. Pericardium No pericardial effusion. Aorta Normal size aortic root and proximal ascending aorta. Earlene Wade MD (Electronically Signed) Final Date: 26 Feb 2017 15:52
[2017-02-27] MEDS: SODIUM CHLORIDE 0.9% 1,000 ML IV SCH (01:58)
[2017-02-27 05:17] LABS: Basophils % 0.3 % (0.0-0.8); Eosinophils # 0.4 10*3/uL (0.0-0.87); Eosinophils % 6.4 % (0.00-10.9); Hematocrit 34.1 VOL% (42.0-52.0); Hemoglobin 11.5 GM/DL (14.0-18.0); Immature Granulocytes % 0.5 %; Immature Granulocytes Absolute 0.03 #; Lymphocytes # 1.3 10*3/uL (1.4-4.0); Lymphocytes % 20.6 % (21.2-54.2); Mean Corpuscular HGB Conc 33.7 GM/DL (32-36); Mean Corpuscular Hemoglobin 33 PG (27-34); Mean Corpuscular Volume 98.3 FL (87-102); Mean Platelet Volume 9.6 FL (9.6-12.0); Monocytes # 0.7 10*3/uL (0.11-0.8); Monocytes % 11.3 % (1.7-12.7); Neutrophils # 3.8 10*3/uL (1.4-7.4); Neutrophils % 60.9 % (38.7-73.9); Platelet Count 137 T/CUMM (130-400); Red Blood Count 3.47 MC/CUMM (3.8-5.5); Red Cell Distribution Width 13.8 % (9.3-17.3); White Blood Count 6.3 T/CUMM (4-12)
[2017-02-27 05:53] LABS: Calcium 8.2 MG/DL (8.5-10.1); Osmolality,Calculated 287.3 MOS/KG (273-304); Potassium 4.7 MMOL/L (3.5-5.1)
[2017-02-27 08:34] VITALS: BP 185/78
[2017-02-27] MEDS: FERROUS SULFATE 325 MG TABLET PO SCH (09:36)
[2017-02-27] MEDS: MULTIVITAMIN (CENTRUM) TABLET PO SCH (09:36)
[2017-02-27] MEDS: ASPIRIN EC 81 MG TABLET PO SCH (09:36)
[2017-02-27] MEDS: PRAMIPEXOLE 0.25 MG TABLET PO SCH (09:36)
[2017-02-27] MEDS: SILVER SULFADIAZINE 1% CREAM 25 GM TUBE TOP SCH (09:36)
[2017-02-27] MEDS: ALLOPURINOL 100 MG TABLET PO SCH (09:36)
[2017-02-27] MEDS: ATORVASTATIN 10 MG TABLET PO SCH (09:36)
[2017-02-27] MEDS: CLOPIDOGREL 75 MG TABLET PO SCH (09:37)
[2017-02-27] MEDS: FINASTERIDE 5 MG TABLET PO SCH (09:37)
[2017-02-27] MEDS: PANTOPRAZOLE 40 MG TABLET PO SCH (09:37)
[2017-02-27] MEDS ORDERED: HEPARIN/NACL 0.9% 2 UNITS/ML 0 ML IV ONE (10:22)
[2017-02-27] MEDS ORDERED: LIDOCAINE 1% 20 ML VIAL ONE (10:22)
--- NOTE | 2017-02-27 11:00 | Discharge Summary ---
Hospital Course - Hospital Course Hospital Course: Mr. Bull is an 86-year-old white male with history of hypertension, non-STEMI , CAD, CHF, and LEESA that presented to the ED on 02/25/2017 with a syncopal episode. Patient also has first-degree gibbs to his face due to landing in his frying low upon passing out. He was admitted by the hospitalist service for further evaluation. Patient's primary care physician is Dr. Stevens and he sees Dr. Soares for his cardiac issues. Dr. Wade from cardiology did see and follow the patient during this hospital stay. Patient's echocardiogram showed normal LV systolic function with an EF of 55% with a grade 2/4 diastolic dysfunction. It also showed a severe aortic stenosis with mild aortic regurgitation. Carotid ultrasound showed 0-15% narrowing of bilateral ICAs. Patient had no documented arrhythmias during this hospital stay. Patient's first-degree gibbs are healing well with some blistering. He does have Silvadene to use daily. Patient is feeling much better and he has no further syncopal episodes. Dr. Wade feels his syncopal episode was due to his severe aortic stenosis. Patient's case has been discussed with Dr. Sosa the instrument panel assembler and Dr. Phan hospitalist, nursing staff, patient and his and it was agreed patient has reached maximal hospital benefit. He will be discharged to home with a 2 week follow-up with Dr. Soares and a one-week follow-up with Dr. Stevens. Dr. Sosa is recommending percutaneous intervention at that time. Patient also has a Holter monitor on and he will be discharged with this for 30 days of monitoring. Complete discharge instructions were given to the patient and his . Case coordination, chart review, and discharge paperwork all took approximately 40 minutes. - Time spent with patient Time with patient DS: Greater than 30 minutes Diagnosis - Discharge Diagnosis (1) CAD (coronary artery disease) Status: Chronic (2) Acute tubular necrosis Status: Resolved (3) LEESA (obstructive sleep apnea) Status: Chronic (4) Hypertension Status: Chronic (5) Aortic stenosis Status: Acute (6) Syncope Status: Resolved Discharge Plan - Discharge Data Disposition: Disch To Home/Self Care Condition at Discharge: Stable Discharge Diet: diabetic diet Activity: resume usual activities as tolerated Hygiene: may shower Driving: not until seen by doctor Contact your physician if you experience:: Shortness of breath, pain uncontrolled by pain medications - Discharge Medications [place] Sulfadiazine 1% Cream [Silvadene 1% Cream] 1 applic TOP BID applic Continue Allopurinol 100 mg PO DAILY Carvedilol [Coreg] 25 mg PO BID Atorvastatin [Lipitor] 10 mg PO DAILY Omeprazole [Prilosec] 20 mg PO BEDTIME Aspirin EC Tab 81 mg PO DAILY tablet Nitroglycerin Sl Tab [Nitrostat] 0.4 mg SL Q5M PRN #25 tablet PRN Reason: Chest Pain Clopidogrel [Plavix] 75 mg PO DAILY Furosemide Tab [Lasix Tab] 40 mg PO DAILY tablet Multivitamin/Iron/Folic Acid [Centrum Complete Multivit Tab] 1 each PO DAILY Finasteride 5 mg PO DAILY Lisinopril 20 mg PO DAILY Pramipexole Di-HCl [Pramipexole Dihydrochloride] 0.5 mg PO DAILY Ferrous Sulfate 325 mg PO DAILY Gabapentin 300 mg PO BID - Follow Up or Referral Follow Up: Trent Soares MD [Family Provider] - 2 Weeks John Lopez MD [Physician] - 1 Week - Forms/Instructions Additional Discharge Instructions: check w dr wade to see if she wants pt to go home w holter monitor. Exam - Constitutional Vitals: Period Temp Pulse Resp BP Sys/Rolle Pulse Ox Last 24 Hr 97.9 F-99.1 F 72-90 18-19 153-187/72-81 95-97 Exam: 86-year-old white male, no acute distress, alert and oriented First-degree gibbs on face are clean and dry Chest clear CV regular rate and rhythm Abdomen soft and nontender Extremities no edema Discharge Results Procedures and tests throughout hospitalization: Pending Orders 02/27/17 10:24 CL heart Routine Labs on day of discharge: Labs from last 24 hours 02/27/17 02/27/17 02/26/17 04:43 04:43 19:45 WBC 6.3 RBC 3.47 L Hgb 11.5 L Hct 34.1 L MCV 98.3 MCH 33 MCHC 33.7 RDW 13.8 Plt Count 137 MPV 9.6 Neut % (Auto) 60.9 Lymph % (Auto) 20.6 L [place] % (Auto) 11.3 Eos % (Auto) 6.4 Baso % (Auto) 0.3 Neut # (Auto) 3.8 Lymph # (Auto) 1.3 L [place] # (Auto) 0.7 Eos # (Auto) 0.4 Baso # (Auto) 0.0 Immature Gran % 0.5 Nucleated RBC % 0.0 Immature Gran # 0.03 Nucleated RBCs # 0.00 Sodium 141 Potassium 4.7 Chloride 108 H Carbon Dioxide 24 Anion Gap 13.7 BUN 32 H Creatinine 1.50 H GFR Calculation 51 BUN/Creatinine Ratio 21.00 H Glucose 96 Calculated Osmolality 287.3 Calcium 8.2 L Total Creatine Kinase 77 CK-MB (CK-2) < 1.0 Troponin I 0.060 H D 02/26/17 13:56 WBC RBC Hgb Hct MCV MCH MCHC RDW Plt Count MPV Neut % (Auto) Lymph % (Auto) [place] % (Auto) Eos % (Auto) Baso % (Auto) Neut # (Auto) Lymph # (Auto) [place] # (Auto) Eos # (Auto) Baso # (Auto) Immature Gran % Nucleated RBC % Immature Gran # Nucleated RBCs # Sodium Potassium Chloride Carbon Dioxide Anion Gap BUN Creatinine GFR Calculation BUN/Creatinine Ratio Glucose Calculated Osmolality Calcium Total Creatine Kinase 77 CK-MB (CK-2) < 1.0 Troponin I 0.045 DS: Provider Date of admission: 02/25/17 11:59 Primary care physician: . No PCP Attending physician on admission: Jenn Zamudio MD Consults: 02/25/17 13:14 Consult to Physician [CONS] Routine Comment: syncope Consulting Provider: Cardiology - [facility] Person Notified: DR. WADE Date Notified: 02/25/17 Time Notified: 15:05 Discharging clinician: SHAUN Ruano Expected date of discharge: 02/27/17
[2017-02-27] MEDS ORDERED: LISINOPRIL 10 MG TABLET PO SCH (12:30)
[2017-02-27] MEDS ORDERED: CARVEDILOL 12.5 MG TABLET PO SCH (12:30)
--- NOTE | 2017-02-27 12:32 | Cardiology Progress Note ---
I, Elidia Hernandez RN, am scribing for, and in the presence of, Earlene Wade MD 12:32. 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 Soares Summary: The patient is an 86-year-old white male with a history of coronary artery disease, at least moderate aortic stenosis, hypertension, hyperlipidemia , renal insufficiency. He is admitted for syncope. There is also acknowledgment of a decline in his functional status, dyspnea on exertion and possibly some exertional chest discomfort although this is debated among the family. Cardiac biomarkers were mildly positive now. February 27, 2017: Mr. Bull is seen resting in bed in no acute distress. He denies chest pain, shortness of breath, palpitations, or dizziness. He denies any episodes of syncope or near syncope. Echo done this admission with ejection fraction of 55%, mild mitral regurgitation, and aortic sclerosis with severe stenosis. Carotid ultrasound showed 0-15% diameter reduction narrowing of either internal carotid artery. His systolic blood pressures have been in the 180s overnight. We will restart her home meds of Coreg and Lisinopril back at lower doses. Labs are unremarkable. He will follow up with Dr. Soares in 2 weeks to discuss outpatient heart catheterization. We will also get an outpatient event monitor. Impression and plan: 1. Syncope-I suspect that he has severe aortic stenosis, and possibly a contribution of carotid stenosis contributing to this symptomatology. Echocardiogram showed severe aortic stenosis. Carotid Doppler with 0-15% diameter reduction narrowing of either internal carotid artery. Alternatively, this could represent an arrhythmia so we will order a 30 day event monitor. The fact that this occurred at rest is suspicious for an additional etiology. 2. Coronary artery disease-clinically he did not seem to have an acute coronary syndrome. However, he is mildly elevated enzymes in the setting of renal insufficiency. This is nonspecific. 3. Chronic renal insufficiency-if he requires cardiac catheterization we will need to premedicate him with Mucomyst and bicarbonated IV fluids. 4. Hypertension-we will start Coreg 12.5 twice daily and Lisinopril 10mg daily 5. Hyperlipidemia. 6. Carotid bruit, right greater than left-awaiting carotid ultrasound. 7. Aortic stenosis-aortic sclerosis with severe stenosis, peak gradient is 60 mmHg, mean gradient is 32 mmHg. 8. Mitral regurgitation-mild mitral valve sclerosis, mild mitral regurgitation. Exam (Progress Note) - Constitutional Vitals: Period Temp Pulse Resp BP Sys/Rolle Pulse Ox Last 24 Hr 97.9 F-99.1 F 72-90 18-19 153-187/72-81 95-97 Exam: General appearance: normal weight, no acute distress - Head Head exam: Present: There are some skin excoriations related to gibbs from the frying low. Absent: hematoma, laceration - Eye Eye exam: Present: EOMI. Absent: conjunctival injection, nystagmus, periorbital swelling, scleral icterus, laceration to eyelids Pupils: Present: PERRL. Absent: constricted, dilated, fixed, irregular, unequal - ENT ENT exam: Present: normal exam, normal external ear exam - Neck Neck exam: Present: normal inspection. Absent: lymphadenopathy, meningismus, tenderness, thyromegaly - Respiratory Respiratory exam: Present: clear to auscultation bilaterally. Absent: accessory muscle use, chest wall tenderness - Cardiovascular Cardiovascular exam: Present: regular rate and rhythm with a 4/6 holosystolic murmur that radiates to the carotid arteries, also lower pitched apical systolic murmur, bilateral carotid bruits right greater than left. Absent: gallop, JVD, rubs - GI/Abdominal GI/Abdominal exam: Present: normal bowel sounds, soft. Absent: distended, firm , guarding, hernia, mass, tenderness, rebound. - Extremities Exam Extremities exam: Present: Decreased pulses in the bilateral feet. Absent: calf tenderness, edema - Back Exam Back exam: Present: normal inspection. Absent: muscle spasm, vertebral tenderness - Neurological Exam Neurological exam: Present: alert, oriented X3, grossly intact without resting or intention tremor - Psychiatric Psychiatric exam: Present: normal affect, normal mood - Skin Skin exam: Present: normal color, warm, dry, intact lesions on his face from the gibbs acquired when his face fell onto the frying low. Absent: cyanosis, diaphoretic, rash, urticaria Result/EKG - Labs CBC & BMP: 02/27/17 04:43 02/27/17 04:43 Lab Results: I have reviewed the past 24 hour labs Labs: Laboratory Results - last 24 hr 02/26/17 02/26/17 02/27/17 13:56 19:45 04:43 WBC 6.3 RBC 3.47 L Hgb 11.5 L Hct 34.1 L MCV 98.3 MCH 33 MCHC 33.7 RDW 13.8 Plt Count 137 MPV 9.6 Neut % (Auto) 60.9 Lymph % (Auto) 20.6 L [place] % (Auto) 11.3 Eos % (Auto) 6.4 Baso % (Auto) 0.3 Neut # (Auto) 3.8 Lymph # (Auto) 1.3 L [place] # (Auto) 0.7 Eos # (Auto) 0.4 Baso # (Auto) 0.0 Immature Gran % 0.5 Nucleated RBC % 0.0 Immature Gran # 0.03 Nucleated RBCs # 0.00 Sodium Potassium Chloride Carbon Dioxide Anion Gap BUN Creatinine GFR Calculation BUN/Creatinine Ratio Glucose Calculated Osmolality Calcium Total Creatine Kinase 77 77 CK-MB (CK-2) < 1.0 < 1.0 Troponin I 0.045 0.060 H D 02/27/17 04:43 WBC RBC Hgb Hct MCV MCH MCHC RDW Plt Count MPV Neut % (Auto) Lymph % (Auto) [place] % (Auto) Eos % (Auto) Baso % (Auto) Neut # (Auto) Lymph # (Auto) [place] # (Auto) Eos # (Auto) Baso # (Auto) Immature Gran % Nucleated RBC % Immature Gran # Nucleated RBCs # Sodium 141 Potassium 4.7 Chloride 108 H Carbon Dioxide 24 Anion Gap 13.7 BUN 32 H Creatinine 1.50 H GFR Calculation 51 BUN/Creatinine Ratio 21.00 H Glucose 96 Calculated Osmolality 287.3 Calcium 8.2 L Total Creatine Kinase CK-MB (CK-2) Troponin I - EKG EKG results: interpreted by me EKG shows: sinus rhythm Specialty Discharge - Follow Up or Referrals Follow up with: Trent Soares MD [Family Provider] - 2 Weeks John Lopez MD [Physician] - 1 Week Mauro Marcial Jennifer, MD, personally performed the services described in this documentation, ascribed by Elidia Hernandez RN in my presence, and it is both accurate and complete 232 .
== END 2017-02-27 12:52 | disposition home or self-care (01) | DRG 307 ==
LOC: EDBD → EDUNIT# → N.ED 10:28 → N.EDINP 11:59 → SUATTDRO 11:59 → N.EDINP 12:38 → N.TELES 13:01
PROVIDERS: ADMIT Pediatrics; ATTEND Internal Medicine

== ENCOUNTER 2017-06-01 10:07 | Inpatient (IN) ==
[2017-06-01] MEDS ORDERED: BOTULINUM TOXIN TYPE A 100 UNIT VIAL INTRADERM ONE (10:48)
[2017-06-01] MEDS: SODIUM CHLORIDE 0.9% 1,000 ML IV SCH (10:59)
[2017-06-01] MEDS ORDERED: BOTULINUM TOXIN TYPE A 100 UNIT VIAL ONE (11:08)
[2017-06-01] MEDS ORDERED: NITROGLYCERIN 2% OINT 1 INCH/GM PACK TOP ONE (11:20)
[2017-06-01] MEDS ORDERED: LIDOCAINE 2% 5 ML VIAL ONE (12:01)
[2017-06-01] MEDS ORDERED: PROPOFOL 200 MG/20 ML VIAL IV ONE (12:01)
[2017-06-01] MEDS ORDERED: SUCCINYLCHOLINE 200 MG/10 ML VIAL ONE (12:01)
--- NOTE | 2017-06-01 12:30 | History and Physical Update ---
History and Physical Update - Physical Exam Mental Status: alert and oriented Heart: regular rate and rhythm Lung: clear to auscultation Abdomen: within normal limits Vitals: within normal limits History and Physical Changes: 87-year-old male with achalasia presents for Botox injection. He complains of frequent dysphagia to solids and liquids as well as bland regurgitation.
[2017-06-01] MEDS ORDERED: ALBUTEROL/IPRATROPIUM 3 ML NEB RESP TX ONE (13:03)
--- NOTE | 2017-06-01 13:07 | Operative Note ---
Date of procedure: 06/01/17 Pre-op diagnosis: Achalasia Post-op diagnosis: same Procedure: Procedure: Esophagogastroduodenoscopy with botulinum A toxin injection distal esophageal sphincter Brief clinical abstract: Patient is an 87-year-old male recently diagnosed with achalasia. Treatment options have been discussed and we have elected to treat with Botox injection given his age and comorbidities. Indication for procedure: Achalasia Endoscopic findings:[After informed consent was obtained, the patient was placed in the left lateral decubitus position. The gastroscope was inserted in the upper esophagus under direct vision with no resistance encountered. Esophageal mucosa appeared normal to the upper midesophagus. There was a good bit of fluid and pured meat noted at this level. Esophagus was moderately dilated. The endoscope was withdrawn and patient was intubated. 34 [place] lavage tube was inserted into the upper esophagus confirmed endoscopically from the hypopharynx. Esophagus was then lavaged with approximately 500 mL water removing much of the food material. The endoscope was then readvanced back into the esophagus. A minimal amount of food material remained in the esophagus. Squamocolumnar junction was sharply demarcated at the diaphragmatic indentation. The endoscope was advanced in the stomach which was carefully examined including retroflexed view of the cardia and fundus with no other abnormality seen. The pyloric channel, duodenal bulb, second and third portion of the duodenum appeared normal. The endoscope was withdrawn back into the distal esophagus. 25-gauge sclerotherapy needle was used and 25 units of botulinum toxin was injected into each of 4 quadrants into the lower esophageal sphincter. The endoscope was then removed. He appeared to tolerate the procedure well. Impression: Achalasia-status post botulinum toxin injection Recommendations: Follow clinically after above. Would plan to discharge today if stable after recovery time. Anesthesia: GETA Surgeon / Physician: Peng Akers Estimated blood loss: minimal Specimens: none sent Condition: stable Disposition: post procedure unit Discharge Plan - Discharge Medications No Action Allopurinol 100 mg PO DAILY Carvedilol [Coreg] 12.5 mg PO BID Atorvastatin [Lipitor] 10 mg PO DAILY Omeprazole [Prilosec] 20 mg PO BEDTIME Aspirin EC Tab 81 mg PO DAILY tablet Nitroglycerin Sl Tab [Nitrostat] 0.4 mg SL Q5M PRN #25 tablet PRN Reason: Chest Pain Multivitamin/Iron/Folic Acid [Centrum Complete Multivit Tab] 1 each PO DAILY Finasteride 5 mg PO DAILY Lisinopril 20 mg PO DAILY Ferrous Sulfate 325 mg PO DAILY Clopidogrel [Plavix] 75 mg PO DAILY Pramipexole [Mirapex] 1 mg PO BEDTIME Gabapentin 300 mg PO BID Furosemide Tab [Lasix Tab] 20 mg PO DAILY - Follow Up or Referral - Forms/Instructions
--- NOTE | 2017-06-01 13:22 | XRay Report ---
Portable chest Date: 06/01/2017 Clinical history: Check for aspiration/perforation Comparison: 03/24/2017 Technique: Portable AP sitting chest Findings: The heart is minimally enlarged with calcification in the aortic knob. Progressive parenchymal findings in the left mid to lower lung zone and in the right infrahilar location. Small left pleural effusion. Incidental carotid artery calcification with degenerative changes. Removal of left chest electronic device. Gaseous distention of the esophagus at the level of the clavicles. Impression: Progressive parenchymal findings which can be seen with aspiration pneumonitis especially at the left lung base with atelectasis and small left pleural effusion. Minimal atelectasis/infiltration in the right infrahilar location. No evidence of definite pneumothorax or pneumomediastinum. Increased gas in the esophagus. Follow-up chest x-ray may be helpful for further evaluation. PROCEDURE INTERPRETED AT [facility] DEPARTMENT OF RADIOLOGY Final Report Signed by: Dr. Vale Martinez
[2017-06-01] MEDS ORDERED: MAGNESIUM HYDROXIDE SUSP 30 ML UDCUP PO PRN (13:54)
[2017-06-01] MEDS ORDERED: cefTRIAXone 1,000 MG VIAL IM SCH (14:00)
--- NOTE | 2017-06-01 14:11 | Gastrointestinal H&P ---
Assessment and Plan (1) Dyspnea Status: Acute Assessment and plan: 06/01-post EGD today for achalasia with Botox injection and esophageal lavage now with complaints of shortness of breath nausea saturations in the low 90s on CPAP. Admit for observation at this time and will consult pulmonary. Will transfer to ICU for observation overnight. Plan an addendum to follow Dr. Akers. Current Visit: Yes History of Present Illness Chief complaint: Achalasia History of present illness: Mr. Bull is a 87 year old male who is being admitted to the hospital for observation following an EGD today. He has a prior history of coronary artery disease, renal insufficiency, hypertension, dementia, obstructive sleep apnea. Patient has a history of dysphagia to solids and liquids as well as recurrent regurgitation over the last couple of months. He had a barium swallow that showed a dilated appearing esophagus which suggested achalasia. He did not have any associated weight loss at this time with ES however he elected to proceed with outpatient EGD for further evaluation. Patient underwent EGD today with Botox injection however postprocedure he began having some shortness of breath with oxygen sats done in the low 90s with with CPAP. He was also noted during endoscopy to have retained food material in the esophagus as well as esophageal lavage. he was also found to have a low-grade fever of 99.9. Chest x-ray shows questionable aspiration pneumonitis of the left lung base with atelectasis and small left pleural effusion. At this time, we will admit for observation and consult pulmonary for further evaluation. Home Medications Medication Instructions Recorded Confirmed Type Allopurinol 100 mg PO DAILY 07/12/15 06/01/17 History Atorvastatin [Lipitor] 10 mg PO DAILY 07/12/15 06/01/17 History Carvedilol [Coreg] 12.5 mg PO BID 07/12/15 06/01/17 History Omeprazole [Prilosec] 20 mg PO BEDTIME 07/12/15 06/01/17 History Aspirin EC Tab 81 mg PO DAILY tablet 07/20/15 06/01/17 Rx Nitroglycerin Sl Tab [Nitrostat] 0.4 mg SL Q5M PRN #25 tablet 07/20/15 06/01/17 Rx Ferrous Sulfate 325 mg PO DAILY 02/25/17 06/01/17 History Finasteride 5 mg PO DAILY 02/25/17 06/01/17 History Gabapentin 300 mg PO BID 02/25/17 06/01/17 History Lisinopril 20 mg PO DAILY 02/25/17 06/01/17 History Multivitamin/Iron/Folic Acid 1 each PO DAILY 02/25/17 06/01/17 History [Centrum Complete Multivit Tab] Furosemide Tab [Lasix Tab] 20 mg PO DAILY 03/24/17 06/01/17 History Clopidogrel [Plavix] 75 mg PO DAILY 05/15/17 06/01/17 History Pramipexole [Mirapex] 1 mg PO BEDTIME 05/15/17 06/01/17 History Allergies Allergy/AdvReac Type Severity Reaction Status Date / Time No Known Allergies Allergy Verified 03/24/17 10:05 Medical,Surgical,& Family Hx - Medical History Cardio: History of: CAD (prior UT with stents), Hypertension, UT, Cardiovascular Problems (status post cath with stents) No history of: Cardiac Dysrhythmia, Pacemaker Neurology: No history of: Seizures Endocrine: History of: Dyslipidemia Rheumatology: History of;: Gout Respiratory: History of: Obstructive Sleep Apnea (SLEEPS WITH CPAP) Renal: History of: Renal Failure (Baseline creatinine 1.5-1.7) Genitourinary: History of: Kidney Stones, Prostate Problems (CA WITH RADIATION) No history of: Bladder Problem Gastrointestinal: History of: Diverticulitis/ Diverticulosis, GERD, GI Problems (achalasia) No history of: Polyps Musculoskeletal: No history of: Amputation Hematology: No history of: Blood Transfusion Reaction Other: History of: Cancer (PROSTATE) No history of: Anesthesia Reactions - Surgical History Cardiac Surgeries: Sugical HX of: Cardiac Catheterization Thoracic Surgeries: Patient denies;: Organ Transplant, Lobectomy Neurologic Surgeries: Patient denies: Neurologic Surgery HEENT Surgeries: Surgical HX of: Eye Surgery (CATARACT RIGHT) Patient denies: Tonsilectomy & Adenoidectomy Abdominal Surgeries: Surgical HX of: Abdominal Surgery, Appendectomy, Colonoscopy, EGD Patient denies: Cholecystectomy, Hernia Repair Reproductive Surgeries: Patient denies;: Prostate Surgery Orthopedic Surgeries: Surgical HX of;: Orthopedic Surgery (RIGHT KNEE SCOPE) - Family History Family History: Reports;: Family Cancer (brother skin ca), Family Heart Disease (brother cabg), Family Hypertension - Social History Smoking Status: Never smoker Frequency of Alcohol Use: None Type of Drug Use: None 12 point system: reviewed and no additional remarkable complaints except as stated - Constitutional Constitutional: Present: as per HPI - EENT Eyes: Present: as per HPI Ears: Present: as per HPI Nose, mouth and throat: Present: as per HPI - Cardiovascular Cardiovascular: Present: as per HPI - Respiratory Respiratory: Present: as per HPI, dyspnea - Gastrointestinal Gastrointestinal: Present: as per HPI - Genitourinary Genitourinary: Present: as per HPI - Musculoskeletal Musculoskeletal: Present: as per HPI - Neurological Neurological: Present: as per HPI - Psychiatric Psychiatric: Present: as per HPI - Endocrine Endocrine: Present: as per HPI - Hematologic/Lymphatic Hematologic/Lymphatic: Present: as per HPI Exam - Constitutional Vitals: Period Temp Pulse Resp BP Sys/Rolle Pulse Ox Last 24 Hr 97.0 F-99.9 F 95-102 16-27 154-174/80-103 91-100 General appearance: normal weight, no acute distress - Head Head exam: Present: normal inspection, normocephalic - Eye Eye exam: Present: other (Lids and conjunctivae are unremarkable). Absent: scleral icterus - ENT ENT exam: Present: normal exam, normal oropharynx - Neck Neck exam: Present: normal inspection - Respiratory Respiratory exam: Present: clear to auscultation bilaterally. Absent: rales, rhonchi, wheezes - Cardiovascular Cardiovascular exam: Present: regular rate and rhythm. Absent: diastolic murmur , JVD, systolic murmur - GI/Abdominal GI/Abdominal exam: Present: normal bowel sounds, soft. Absent: ascites, distended, mass, organomegaly, tenderness - Extremities Exam Extremities exam: Present: normal inspection, full ROM - Back Exam Back exam: Present: normal inspection - Neurological Exam Neurological exam: Present: alert, oriented X3 - Psychiatric Psychiatric exam: Present: normal affect, normal mood - Skin Skin exam: Present: normal color, warm, dry
[2017-06-01] MEDS ORDERED: SODIUM CHLORIDE 0.9% 100 ML IV ONE (14:33)
[2017-06-01] MEDS ORDERED: hydrALAZINE 20 MG/1 ML VIAL IV PRN (14:48)
[2017-06-01] MEDS: METOPROLOL TARTRATE 5 MG/5 ML VIAL IV SCH (15:05)
[2017-06-01] MEDS: ALBUTEROL/IPRATROPIUM 3 ML NEB RESP TX PRN (15:15)
[2017-06-01] MEDS: methylPREDNISolone SOD SUC 40 MG/1 ML VIAL IV SCH ×2 (15:27→22:05)
[2017-06-01 15:45] LABS: Basophils % 0.3 % (0.0-0.8); Eosinophils # 0.1 10*3/uL (0.0-0.87); Eosinophils % 1.1 % (0.00-10.9); Hematocrit 42.4 VOL% (42.0-52.0); Hemoglobin 13.8 GM/DL (14.0-18.0); Immature Granulocytes % 0.7 %; Immature Granulocytes Absolute 0.09 #; Lymphocytes # 2.3 10*3/uL (1.4-4.0); Lymphocytes % 17.3 % (21.2-54.2); Mean Corpuscular HGB Conc 32.5 GM/DL (32-36); Mean Corpuscular Hemoglobin 33 PG (27-34); Mean Platelet Volume 10.1 FL (9.6-12.0); Monocytes # 0.2 10*3/uL (0.11-0.8); Monocytes % 1.6 % (1.7-12.7); NRBC # 0.02 10*3/uL; Neutrophils # 10.5 10*3/uL (1.4-7.4); Platelet Count 193 T/CUMM (130-400); Red Blood Count 4.24 MC/CUMM (3.8-5.5); Red Cell Distribution Width 14.3 % (9.3-17.3); White Blood Count 13.3 T/CUMM (4-12)
[2017-06-01] MEDS: ONDANSETRON 4 MG/2 ML VIAL IV PRN (16:01)
[2017-06-01 16:32] LABS: Albumin 3.4 G/DL (3.4-5.0); Bilirubin,Total 0.5 MG/DL (0.2-1.0); Calcium 8.9 MG/DL (8.5-10.1); Osmolality,Calculated 283.5 MOS/KG (273-304); Potassium 5.1 MMOL/L (3.5-5.1); Total Protein 6.9 G/DL (6.4-8.3)
--- NOTE | 2017-06-01 16:43 | Pulmonology Consult Note ---
Assessment and Plan (1) Achalasia Status: Acute Assessment and plan: The patient had an EGD with Botox injections today for achalasia. He has had difficulty swallowing and certainly could be aspirating. Current Visit: Yes (2) Stented coronary artery Status: Acute Assessment and plan: Patient has known coronary artery disease. Current Visit: No (3) LEESA (obstructive sleep apnea) Status: Chronic Assessment and plan: Patient uses CPAP at night. Current Visit: No (4) Hypertension Status: Chronic Assessment and plan: His blood pressure and heart rate are stable so far. Current Visit: No (5) Left lower lobe pneumonia Status: Acute Assessment and plan: The patient may have had an aspiration and left lower lobe pneumonia now. He is having some respiratory distress and is on BiPAP. He is getting bronchodilators and steroids along with his antibiotics. Current Visit: Yes Qualifiers: Pneumonia type: aspiration pneumonia History of Present Illness Chief complaint: Shortness of breath History of present illness: Mr. Bull is a 87 year old white male that has a history of having coronary artery disease along with hypertension and mild renal insufficiency. He also has a history of sleep apnea and uses CPAP at night. He has been having trouble with dysphagia and is found to have achalasia. Today he had an EGD with Botox injections. Following the procedure he has had more trouble breathing and may have some aspiration pneumonia. He does have a lot of anxiety but his O2 saturations are okay. He is using BiPAP at present time. His chest x-ray does show mild left lower lobe infiltrate. He is not having any chest pain. He has not had any problems breathing before. Home Medications Medication Instructions Recorded Confirmed Type Allopurinol 100 mg PO DAILY 07/12/15 06/01/17 History Atorvastatin [Lipitor] 10 mg PO DAILY 07/12/15 06/01/17 History Carvedilol [Coreg] 12.5 mg PO BID 07/12/15 06/01/17 History Omeprazole [Prilosec] 20 mg PO BEDTIME 07/12/15 06/01/17 History Aspirin EC Tab 81 mg PO DAILY tablet 07/20/15 06/01/17 Rx Nitroglycerin Sl Tab [Nitrostat] 0.4 mg SL Q5M PRN #25 tablet 07/20/15 06/01/17 Rx Ferrous Sulfate 325 mg PO DAILY 02/25/17 06/01/17 History Finasteride 5 mg PO DAILY 02/25/17 06/01/17 History Gabapentin 300 mg PO BID 02/25/17 06/01/17 History Lisinopril 20 mg PO DAILY 02/25/17 06/01/17 History Multivitamin/Iron/Folic Acid 1 each PO DAILY 02/25/17 06/01/17 History [Centrum Complete Multivit Tab] Furosemide Tab [Lasix Tab] 20 mg PO DAILY 03/24/17 06/01/17 History Clopidogrel [Plavix] 75 mg PO DAILY 05/15/17 06/01/17 History Pramipexole [Mirapex] 1 mg PO BEDTIME 05/15/17 06/01/17 History Allergies Allergy/AdvReac Type Severity Reaction Status Date / Time No Known Allergies Allergy Verified 03/24/17 10:05 - Constitutional Constitutional: Absent: fever(s) - EENT Nose, mouth and throat: Present: dysphagia - Cardiovascular Cardiovascular: Present: dyspnea. Absent: chest pain at rest, palpitations - Respiratory Respiratory: Present: cough, dyspnea, wheezing - Gastrointestinal Gastrointestinal: Present: dysphagia, nausea, vomiting. Absent: abdominal pain - Genitourinary Genitourinary: Absent: difficulty urinating - Musculoskeletal Musculoskeletal: Absent: arthralgias - Psychiatric Psychiatric: Present: anxiety Exam (Pulmonay) H&P - Constitutional Vitals: Period Temp Pulse Resp BP Sys/Rolle Pulse Ox Last 24 Hr 97.0 F-99.9 F 95-127 16-39 134-189/69-163 87-100 General appearance: normal weight, mild distress (He is anxious but looks reasonably comfortable on BiPAP.) - Head Head exam: Present: normal inspection, normocephalic - Eye Eye exam: Present: EOMI. Absent: scleral icterus Pupils: Present: JONELLE - ENT ENT exam: Present: normal exam - Neck Neck exam: Present: normal inspection. Absent: lymphadenopathy, thyromegaly - Respiratory Respiratory exam: Present: rales (He does have crackles toward the bases.), rhonchi, wheezes - Cardiovascular Cardiovascular exam: Present: regular rate and rhythm. Absent: gallop, systolic murmur - GI/Abdominal GI/Abdominal exam: Present: soft. Absent: distended, organomegaly, tenderness - Extremities Exam Extremities exam: Absent: calf tenderness, edema - Neurological Exam Neurological exam: Present: alert - Psychiatric Psychiatric exam: Present: anxious - Skin Skin exam: Present: warm, dry Medical,Surgical,& Family Hx - Medical History Cardio: History of: CAD (prior [place] with stents), Hypertension, [place], Cardiovascular Problems (status post cath with stents) No history of: Cardiac Dysrhythmia, Pacemaker Neurology: No history of: Seizures Endocrine: History of: Dyslipidemia Rheumatology: History of;: Gout Respiratory: History of: Obstructive Sleep Apnea (SLEEPS WITH CPAP) Renal: History of: Renal Failure (Baseline creatinine 1.5-1.7) Genitourinary: History of: Kidney Stones, Prostate Problems ([place] WITH RADIATION) No history of: Bladder Problem Gastrointestinal: History of: Diverticulitis/ Diverticulosis, GERD, GI Problems (achalasia) No history of: Polyps Musculoskeletal: No history of: Amputation Hematology: No history of: Blood Transfusion Reaction Other: History of: Cancer (PROSTATE) No history of: Anesthesia Reactions - Surgical History Cardiac Surgeries: Sugical HX of: Cardiac Catheterization Thoracic Surgeries: Patient denies;: Organ Transplant, Lobectomy Neurologic Surgeries: Patient denies: Neurologic Surgery HEENT Surgeries: Surgical HX of: Eye Surgery (CATARACT RIGHT) Patient denies: Tonsilectomy & Adenoidectomy Abdominal Surgeries: Surgical HX of: Abdominal Surgery, Appendectomy, Colonoscopy, EGD Patient denies: Cholecystectomy, Hernia Repair Reproductive Surgeries: Patient denies;: Prostate Surgery Orthopedic Surgeries: Surgical HX of;: Orthopedic Surgery (RIGHT KNEE SCOPE) - Family History Family History: Reports;: Family Cancer (brother skin ca), Family Heart Disease (brother cabg), Family Hypertension - Social History Smoking Status: Never smoker Frequency of Alcohol Use: None Type of Drug Use: None Results - Labs CBC & BMP: 06/01/17 15:10 06/01/17 15:10 - Diagnostic Findings Procedure: Chest x-ray: image reviewed by me, report reviewed by me (Chest x- ray does show mild left lower lobe infiltrate.)
[2017-06-01] MEDS: cefTRIAXone 1,000 MG VIAL IV SCH (16:47)
[2017-06-01] MEDS: CLINDAMYCIN INJ 600 MG in PREMIX 1 EACH IV SCH ×2 (16:56→23:57)
[2017-06-01] MEDS: ENOXAPARIN 40 MG/0.4 ML SYRINGE SUBCUT SCH (16:57)
[2017-06-01 17:21] LABS: ABG Base Excess -1.5 MMOL/L (-2.5-2.5); ABG Oxygen Saturation 91.7 % (95-100); ABG PCO2 36.4 MM HG (35-48); ABG PH 7.403 (7.35-7.45); ABG PO2 64.8 MM HG (80-95); ABG TCO2 19.9 MMOL/L (23-27); Pt O2 Delivery Device BIPAP
[2017-06-01] MEDS: DEXTROSE 5% NACL 0.45% 1,000 ML IV SCH (18:46)
[2017-06-01] MEDS: ALBUTEROL/IPRATROPIUM 3 ML NEB RESP TX SCH (20:17)
[2017-06-01] MEDS: CARVEDILOL 12.5 MG TABLET PO SCH (20:27)
[2017-06-01] MEDS: GABAPENTIN 300 MG CAPSULE PO SCH (20:27)
[2017-06-01] MEDS: PRAMIPEXOLE 0.25 MG TABLET PO SCH (20:27)
[2017-06-01] MEDS ORDERED: NON-FORMULARY MEDICATION (Omeprazole [Prilosec] 20 MG) PO SCH (21:00)
[2017-06-02] MEDS: ALBUTEROL/IPRATROPIUM 3 ML NEB RESP TX SCH ×3 (00:39→12:18)
[2017-06-02] MEDS: METOPROLOL TARTRATE 5 MG/5 ML VIAL IV SCH (04:11)
[2017-06-02] MEDS: methylPREDNISolone SOD SUC 40 MG/1 ML VIAL IV SCH ×3 (04:18→23:12)
[2017-06-02 05:25] LABS: Basophils % 0.2 % (0.0-0.8); Hematocrit 34.4 VOL% (42.0-52.0); Immature Granulocytes % 0.4 %; Immature Granulocytes Absolute 0.05 #; Lymphocytes # 0.6 10*3/uL (1.4-4.0); Mean Corpuscular HGB Conc 33.1 GM/DL (32-36); Mean Corpuscular Hemoglobin 33 PG (27-34); Mean Platelet Volume 9.6 FL (9.6-12.0); Monocytes # 0.4 10*3/uL (0.11-0.8); Monocytes % 2.7 % (1.7-12.7); Neutrophils # 13.2 10*3/uL (1.4-7.4); Neutrophils % 92.7 % (38.7-73.9); Platelet Count 163 T/CUMM (130-400); Red Blood Count 3.51 MC/CUMM (3.8-5.5); Red Cell Distribution Width 14.5 % (9.3-17.3); White Blood Count 14.2 T/CUMM (4-12)
[2017-06-02 05:41] LABS: Hemoglobin 11.4 GM/DL (14.0-18.0)
[2017-06-02 05:49] LABS: Calcium 8.5 MG/DL (8.5-10.1); Osmolality,Calculated 286.7 MOS/KG (273-304)
[2017-06-02 06:14] LABS: Band Neutrophils 14 % (0-10); Giant Platelets Few; Hypochromasia 1+; Lymphocytes 5 % (20-55); Myelocytes 1 %; Ovalocytes Slight; Platelet Estimate Normal; Segmented Neutrophils 77 % (50-85); Total Cells Counted 100
[2017-06-02] MEDS: CLINDAMYCIN INJ 600 MG in PREMIX 1 EACH IV SCH ×3 (06:45→23:12)
--- NOTE | 2017-06-02 07:13 | Anesthesia Post-Op ---
Anesthesia Post OP - Post Ansesthetic Evaluation Patient seen in post op: Yes Resp: other (pt stable on SFM, Sats 97%, no labored breathing, +cough, probable aspiration pneumonia on post-op chest xray) CV: within normal limits Mental: within normal limits Temp: within normal limits [id number]: within normal limits Nausea and Vomiting: within normal limits Pain: within normal limits Patient seen at: date (06/02/17 5945)
[2017-06-02] MEDS: DEXTROSE 5% NACL 0.45% 1,000 ML IV SCH (07:18)
--- NOTE | 2017-06-02 07:48 | EKG Report ---
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
--- NOTE | 2017-06-02 08:31 | Pulmonology Progress Note ---
Pulmonary - PN: Subj Interval history: The patient is an 87-year-old white man that has achalasia. He had an EGD with Botox injections yesterday. After that he had respiratory distress and is probably aspirated some. He has developed a left lung pneumonia. He has a history coronary artery disease and hypertension along with some valvular disease. Yesterday he was wheezing and quite short of breath. He said he did not sleep much but he is feeling better today. He feels like it is easier to catch his breath although he still coughing some. He feels like his shortness of breath is much better. He does have considerable left lung infiltrate however. Exam (Progress Note) - Constitutional Vitals: Period Temp Pulse Resp BP Sys/Rolle Pulse Ox Last 24 Hr 97 F-100.1 F 79-127 15-39 87-189/50-163 87-100 Exam: General appearance: normal weight, mild distress (He he does look much more comfortable and in less distress.) - Head Head exam: Present: normal inspection, normocephalic - Eye Eye exam: Present: EOMI. Absent: scleral icterus Pupils: Present: JONELLE - ENT ENT exam: Present: normal exam - Neck Neck exam: Present: normal inspection. Absent: lymphadenopathy, thyromegaly - Respiratory Respiratory exam: Present: He has fairly good breath sounds bilaterally with some crackles and rhonchi on the left. - Cardiovascular Cardiovascular exam: Present: regular rate and rhythm. Absent: gallop, systolic murmur - GI/Abdominal GI/Abdominal exam: Present: soft. Absent: distended, organomegaly, tenderness - Extremities Exam Extremities exam: Absent: calf tenderness, edema, he has no signs of phlebitis. - Neurological Exam Neurological exam: Present: alert, he is moving everything okay. - Psychiatric Psychiatric exam: Present: He looks much more comfortable today. - Skin Skin exam: Present: warm, dry Results - Labs CBC & BMP: 06/02/17 05:12 06/02/17 05:12 - Diagnostic Findings Procedure: Chest x-ray: image reviewed by me, report reviewed by me (Chest x- ray shows considerable left lung infiltrate.) Assessment and Plan (1) Achalasia Status: Acute Assessment and plan: The patient had an EGD with Botox injections today for achalasia. He has had difficulty swallowing and certainly could be aspirating. He is taking in liquids and does want to try to eat. Current Visit: Yes (2) Stented coronary artery Status: Acute Assessment and plan: Patient has known coronary artery disease. Current Visit: No (3) LEESA (obstructive sleep apnea) Status: Chronic Assessment and plan: Patient uses CPAP at night. Current Visit: No (4) Hypertension Status: Chronic Assessment and plan: His blood pressure and heart rate are stable so far. Current Visit: No (5) Left lower lobe pneumonia Status: Acute Assessment and plan: The patient looks like he has considerable pneumonia on the left now. He is getting Rocephin and Cleocin. He will continue with respiratory therapy. Current Visit: Yes Qualifiers: Pneumonia type: aspiration pneumonia
[2017-06-02] MEDS: ONDANSETRON 4 MG/2 ML VIAL IV PRN (08:37)
[2017-06-02] MEDS: ASPIRIN EC 81 MG TABLET PO SCH (08:38)
[2017-06-02] MEDS: CLOPIDOGREL 75 MG TABLET PO SCH (08:38)
[2017-06-02] MEDS: GABAPENTIN 300 MG CAPSULE PO SCH ×2 (08:38→20:30)
[2017-06-02] MEDS: ALLOPURINOL 100 MG TABLET PO SCH (08:38)
[2017-06-02] MEDS: LISINOPRIL 20 MG TABLET PO SCH (08:38)
[2017-06-02] MEDS: CARVEDILOL 12.5 MG TABLET PO SCH ×2 (08:38→20:30)
[2017-06-02] MEDS: FINASTERIDE 5 MG TABLET PO SCH (08:38)
[2017-06-02] MEDS: PANTOPRAZOLE 40 MG TABLET PO SCH (08:38)
[2017-06-02] MEDS: FUROSEMIDE 20 MG TABLET PO SCH (08:38)
[2017-06-02] MEDS: ATORVASTATIN 10 MG TABLET PO SCH (08:39)
[2017-06-02] MEDS ORDERED: FERROUS SULFATE 325 MG TABLET PO SCH (09:00)
--- NOTE | 2017-06-02 09:02 | XRay Report ---
History: Pneumonia Date: 06/02/2017 Study: Chest x-ray AP portable Comparison exam: 06/01/2017 There is stable mild cardiomegaly. The mediastinal contours are unchanged. The pulmonary vasculature is not engorged. There is considerably increased patchy and hazy pneumonia scattered in the left lung compared to the previous study. There is also some mild atelectasis/infiltrate in the medial right lung base. There is no pneumothorax. Osseous structures are unchanged. Impression: Worsening left lung pneumonia PROCEDURE INTERPRETED AT [facility] DEPARTMENT OF RADIOLOGY Final Report Signed by: Dr. Janet Akers
--- NOTE | 2017-06-02 09:07 | XRay Report ---
History: Shortness of breath. Pneumonia. Achalasia. History of diverticulitis Date: 06/02/2017 Study: Flat and erect abdomen Comparison exam: October 24, 2010 abdominal x-ray There is some patchy pneumonia noted in the partially visualized left lung base. There is no evidence of pneumoperitoneum. The bowel gas pattern is nonspecific without dany mechanical obstruction. There is some residual barium within numerous diverticuli overlying the sigmoid region. There is moderate lumbar spondylosis and mild lumbar degenerative disc narrowing. Impression: No definite acute abdominal process. PROCEDURE INTERPRETED AT [facility] DEPARTMENT OF RADIOLOGY Final Report Signed by: Dr. Janet Akers
--- NOTE | 2017-06-02 10:45 | Gastrointestinal Progress Note ---
Assessment and Plan (1) Dyspnea Status: Acute Assessment and plan: 06/02-improved shortness of breath with oxygen saturations improved as well. Chest x-ray today noted as below. Will start clear liquid diet and continue to monitor his dysphagia. Continue to monitor respiratory status today and if continues to improve can consider possibly transferring to floor later today. Plan an addendum to followed by Dr. Akers. 06/01-post EGD today for achalasia with Botox injection and esophageal lavage now with complaints of shortness of breath nausea saturations in the low 90s on CPAP. Admit for observation at this time and will consult pulmonary. Will transfer to ICU for observation overnight. Plan an addendum to follow Dr. Akers. Current Visit: Yes Gastroenterology - PN: Subj Interval history: CC: Shortness of breath Patient is seen, awake and alert sitting up in chair. States he did not rest well overnight due to cough and states that he is having increased sputum production now. He is on nasal biprong oxygen is tolerating this well. His oxygen saturations are being maintained in the mid to high 90s. He is tolerating small sips of liquids at this time. Chest x-ray did show worsening left lung pneumonia this morning. Dr. Santos is following at this time. He is being treated with Rocephin and Cleocin as well. Abdomen is soft, nontender. ROS: Denies shortness of breath or chest pain Exam (Progress Note) - Constitutional Vitals: Period Temp Pulse Resp BP Sys/Rolle Pulse Ox Last 24 Hr 97 F-100.1 F 79-127 12-39 87-189/50-163 87-100 General appearance: normal weight, no acute distress - Head Head exam: Present: normal inspection, normocephalic - Eye Eye exam: Present: other (Lids and identified unremarkable). Absent: scleral icterus - ENT ENT exam: Present: normal exam, normal oropharynx - Neck Neck exam: Present: normal inspection - Respiratory Respiratory exam: Present: clear to auscultation bilaterally. Absent: rales, rhonchi, wheezes - Cardiovascular Cardiovascular exam: Present: regular rate and rhythm. Absent: diastolic murmur , JVD, systolic murmur - GI/Abdominal GI/Abdominal exam: Present: normal bowel sounds, soft. Absent: ascites, distended, mass, organomegaly, tenderness - Extremities Exam Extremities exam: Present: normal inspection, full ROM - Back Exam Back exam: Present: normal inspection - Neurological Exam Neurological exam: Present: alert, oriented X3 - Psychiatric Psychiatric exam: Present: normal affect, normal mood - Skin Skin exam: Present: normal color, warm, dry Results - Labs CBC & BMP: 06/02/17 05:12 06/02/17 05:12 Lab Results: I have reviewed the past 24 hour labs
[2017-06-02] MEDS: SODIUM CHLORIDE 0.9% 1,000 ML IV SCH (12:08)
[2017-06-02] MEDS ORDERED: ALUM/MAG/SIMETH/LIDO VISC 1:1 30 ML BOTTLE PO ONE ×2 (14:25→14:29)
[2017-06-02] MEDS: ENOXAPARIN 40 MG/0.4 ML SYRINGE SUBCUT SCH (14:28)
--- NOTE | 2017-06-02 14:28 | EKG Report ---
Stationary ECG Study 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
[2017-06-02] MEDS: NITROGLYCERIN SL 0.4 MG TABLET SL PRN (14:30)
[2017-06-02 15:27] LABS: Troponin I Only 0.122 NG/ML (0.00-0.045)
[2017-06-02] MEDS: cefTRIAXone 1,000 MG VIAL IV SCH (16:25)
[2017-06-02] MEDS: PRAMIPEXOLE 0.25 MG TABLET PO SCH (20:30)
[2017-06-03] MEDS: NITROGLYCERIN SL 0.4 MG TABLET SL PRN ×2 (04:51→04:57)
[2017-06-03] MEDS ORDERED: ALUMINUM/MAGNES/SIMETH MAX STR 30 ML UDCUP PO PRN (04:53)
[2017-06-03] MEDS: ALBUTEROL/IPRATROPIUM 3 ML NEB RESP TX PRN (05:15)
[2017-06-03] MEDS: CLINDAMYCIN INJ 600 MG in PREMIX 1 EACH IV SCH ×3 (06:09→23:04)
--- NOTE | 2017-06-03 07:25 | EKG Report ---
Stationary ECG Study 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
[2017-06-03 07:58] LABS: Troponin I Only 0.316 NG/ML (0.00-0.045)
[2017-06-03] MEDS: CARVEDILOL 12.5 MG TABLET PO SCH ×2 (09:29→20:40)
[2017-06-03] MEDS: ATORVASTATIN 10 MG TABLET PO SCH (09:29)
[2017-06-03] MEDS: FUROSEMIDE 20 MG TABLET PO SCH (09:29)
[2017-06-03] MEDS: ASPIRIN EC 81 MG TABLET PO SCH (09:29)
[2017-06-03] MEDS: methylPREDNISolone SOD SUC 40 MG/1 ML VIAL IV SCH ×3 (09:29→23:05)
[2017-06-03] MEDS: CLOPIDOGREL 75 MG TABLET PO SCH (09:30)
[2017-06-03] MEDS: GABAPENTIN 300 MG CAPSULE PO SCH ×2 (09:30→20:39)
[2017-06-03] MEDS: PANTOPRAZOLE 40 MG TABLET PO SCH (09:30)
[2017-06-03] MEDS: LISINOPRIL 20 MG TABLET PO SCH (09:30)
[2017-06-03] MEDS: ALLOPURINOL 100 MG TABLET PO SCH (09:30)
[2017-06-03] MEDS: FINASTERIDE 5 MG TABLET PO SCH (09:30)
--- NOTE | 2017-06-03 10:06 | XRay Report ---
Portable chest June 03, 2017 Indication shortness of breath Comparison images from previous day at 0332 hours Findings: Worsening of the patchy parenchymal consolidations bilaterally. Increasing density obscuring the left hemidiaphragm. Cardiomediastinal contours are stable with mild cardiomegaly. No acute osseous abnormality. 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 Age-appropriate spurring along the thoracic spine. Impression: Worsening patchy consolidations bilaterally. Increasing density within the left lung base obscuring the left hemidiaphragm, may represent associated effusion and/or atelectasis Advanced right glenohumeral arthrosis PROCEDURE INTERPRETED AT [facility] DEPARTMENT OF RADIOLOGY Final Report Signed by: Jeremie Conde
[2017-06-03] MEDS ORDERED: ALBUTEROL/IPRATROPIUM 3 ML NEB RESP TX SCH (15:00)
[2017-06-03] MEDS: ENOXAPARIN 40 MG/0.4 ML SYRINGE SUBCUT SCH (15:52)
[2017-06-03] MEDS: cefTRIAXone 1,000 MG in SODIUM CHLORIDE 0.9% 100 ML IV SCH (16:22)
[2017-06-03] MEDS: ALBUTEROL/IPRATROPIUM 3 ML NEB RESP TX SCH ×3 (16:38→23:45)
--- NOTE | 2017-06-03 16:42 | Pulmonology Progress Note ---
Pulmonary - PN: Subj Interval history: This is an 87-year-old male with heart disease and achalasia. He had EGD2 days ago. He has had Botox injection. Since then he has been short of breath. He had an aspiration episode. He now has a fairly large left lower lung pneumonia. He is beginning to improve and he is more comfortable. He is on antibiotics.06/03/2017 chest x-ray shows normal size heart. There is extensive left upper lung left lower lung infiltrate infiltrates in the right upper lung and the medial posterior basal segment of the right lower lung. No positive cultures. Troponin is 0.316. Recent creatinine was 2.30 up from 1.60 this will be repeated. Last white count was 14,200. Patient feels like he is better. Vital signs. See below. Patient is afebrile. Psychiatric. Appears to be oriented. General no distress Face. Symmetrical. No edema. Neck. Symmetrical no meningismus Chest. Bilateral lymph large airway congestion. Heart no gallop Abdomen. Nondistended. Positive bowel sounds. Extremities. Nothing to suggest deep venous thrombophlebitis Neurologic. Cranial nerves are intact with decreased hearing acuity. Patient moves all 4 extremities. Sensory exam was not done in gait was not tested. The remainder the exam is noncontributory Plan. 1. Repeat chest x-ray, CBC, BMP and BNP 2. Continue present regimen. Exam (Progress Note) - Constitutional Vitals: Period Temp Pulse Resp BP Sys/Rolle Pulse Ox Last 24 Hr 97.3 F-98.2 F 82-102 16-22 107-125/55-71 90-98 Results - Labs CBC & BMP: 06/02/17 05:12 06/02/17 05:12
[2017-06-03 19:27] LABS: Basophils % 0.1 % (0.0-0.8); Hematocrit 31.4 VOL% (42.0-52.0); Hemoglobin 10.5 GM/DL (14.0-18.0); Immature Granulocytes % 1.2 %; Immature Granulocytes Absolute 0.17 #; Lymphocytes # 0.5 10*3/uL (1.4-4.0); Lymphocytes % 3.2 % (21.2-54.2); Mean Corpuscular HGB Conc 33.4 GM/DL (32-36); Mean Corpuscular Hemoglobin 32 PG (27-34); Mean Corpuscular Volume 96.9 FL (87-102); Mean Platelet Volume 9.9 FL (9.6-12.0); Monocytes # 0.5 10*3/uL (0.11-0.8); Monocytes % 3.3 % (1.7-12.7); Neutrophils # 13.3 10*3/uL (1.4-7.4); Neutrophils % 92.2 % (38.7-73.9); Platelet Count 177 T/CUMM (130-400); Red Blood Count 3.24 MC/CUMM (3.8-5.5); Red Cell Distribution Width 14.3 % (9.3-17.3); White Blood Count 14.4 T/CUMM (4-12)
[2017-06-03 19:53] LABS: Alanine Aminotransferase 18 U/L (16-61); Albumin 2.9 G/DL (3.4-5.0); Alkaline Phosphatase 67 U/L (45-117); Aspartate Amino Transferase 24 U/L (0-37); Blood Urea Nitrogen 53 MG/DL (7-18); Calcium 8.5 MG/DL (8.5-10.1); Glucose 159 MG/DL (74-106); Osmolality,Calculated 286.1 MOS/KG (273-304); Sodium 135 MMOL/L (136-145); Total Protein 6.3 G/DL (6.4-8.3)
[2017-06-03 19:54] LABS: Troponin I Only 0.339 NG/ML (0.00-0.045)
--- NOTE | 2017-06-03 19:57 | Gastrointestinal Progress Note ---
Assessment and Plan - Time spent with patient Time spent with patient: Greater than 30 minutes (1) Bilateral pneumonia Status: Acute Current Visit: Yes (2) Non-STEMI (non-ST elevated myocardial infarction) Status: Acute Current Visit: No (3) Stented coronary artery Status: Acute Current Visit: No (4) Chronic renal insufficiency, stage III (moderate) Status: Chronic Current Visit: No (5) High risk medication use Status: Chronic Current Visit: No (6) Acute renal failure Status: Acute Current Visit: No (7) Aortic stenosis Problem details: 3+ Status: Chronic Current Visit: No (8) Achalasia Status: Acute Assessment and plan: PLEASE NOTE -- automatic citation of patient information is unavoidable in this electronic note. I have made a reasonable effort to review the information cited , but it is not a part of my evaluation, impression, or recommendation unless specifically discussed in the dictated text that follows. As well, voice recognition software was used in the creation of this clinical note. Reasonable effort was made to identify and correct gross errors. Despite proofreading, errors in dairy frozen manager may be present, including nonsense verbiage at times. If you encounter such an error, please contact me at [phone] for discussion and correction. -- Jai Chief complaint: Follow-up possible aspiration pneumonia 24 hour events: Episode of chest pain overnight, relieved by nitro, subtle elevation in troponin still less than 1 but uptrending. Subjective: Mr. Haseeb Neves is an 87-year-old man with severe 4+ aortic stenosis, coronary artery disease status post stent placement to the proximal LAD in March 2017, on Plavix and aspirin, with achalasia, who underwent EGD with Botox injection to the GE junction on June 01, 2017. Was admitted afterward for persistent hypoxia. Upon review today, patient states that he has been having approximately 4 weeks of progressively worsening coughing episodes, emesis in his sleep, with choking on food substances, which has been progressively worsening. This is been associated with fevers, chills, weight gain since his cardiac stent was placed in March, at which time he had an improvement in his appetite. States that cough production has improved with current medications, and endorsing significant blood-tinged sputum, denies dany hemoptysis. He endorses orthopnea, swelling to the mid calf, mild. States that chest pain last night was left-sided pressure, lasted for 30-60 minutes until he got a Nitro-Tab which resolved. States he had a similar episode on the . Chest pain also associated with hypoxia, O2 sat dropped to the low 80s, was given a breathing treatment which helped induce productive sputum, and symptoms improved. Has been consistently taking his Plavix and aspirin, noting black stool that he is associated with his iron tablets, no hematochezia, no abdominal pain. Has had improved swallowing since his Botox injection, and diet was advanced today from soft foods to cardiac diet. Sochx: No history of smoking, or known underlying pulmonary disease Famhx: Brother with significant cardiovascular disease requiring a CABG at age 43 Sister with breast cancer Other sister with lung cancer, was a smoker Medical history: Patient with cardiac catheterization March 2017, with eccentric 80% stenosis/lesion in the proximal LAD, status post drug-eluting stent placed. 4+ aortic stenosis. -Echo done 2 weeks prior to coronary intervention, with EF of 55%, 2 out of 4 diastolic dysfunction, severe aortic stenosis Medications: Ceftriaxone 1 g every 24started 06/03/2017 Clindamycin 600 mg every 8 hoursstarted 06/01/17 Solu-Medrol 40 mg IV every 8 hoursstarted 06/02/17 Mucinex 1200 mg p.o. twice daily Duo nebs every 4 hours scheduled Plavix 75 mg daily Aspirin 81 mg daily Protonix 40 mg p.o. daily Lisinopril 20 mg daily Lipitor 10 mg daily Lasix 20 mg p.o. daily Coreg 12.5 mg p.o. twice daily Allopurinol 100 mg daily Proscar 5 mg daily Neurontin 300 mg twice daily Zofran as needed Mirapex 1 mg p.o. nightly Lovenox 40 mg daily for DVT prophylaxis Magnesium hydroxide as needed REVIEW OF SYSTEMS: Complete other review of systems negative except as noted in the HPI PHYSICAL EXAMINATION: CONSTITUTIONAL: Vital signs reviewed as documented above. In no acute distress. Nontoxic-appearing. EYES: Anicteric conjunctiva. Extra-ocular movements are intact and symmetric. EARS: Able to hear speech at conversational volume level, no external trauma/ masses. MOUTH: No oral/mouth lesions or ulcers. NECK: No masses or crepitus. Thyroid is of normal size and symmetric. HEART: Regular rate, regular rhythm LUNGS: [Clear to auscultation bilaterally]. No increased work of breathing or accessory muscle use. GI/ABDOMEN: [obese/non-obese] abdomen, soft, [Nontender/tenderness] to palpation, no rebound tenderness, nondistended, no rigidity. No palpable mass. No appreciable hepatosplenomegaly. SKIN: No rash on face, arms, or hands. No palpable lesions MUSCULOSKELETAL: Normal gait. Muscle tone appears normal without any abnormal movements. PSYCH: Normal affect. Alert and oriented to person, place, and time. Laboratory: Personally reviewed WBC increased from 13.3-14.2 today, 93% neutrophils, hemoglobin dropped from 13.8-11.4, platelets 163 Chemistry with sodium 138, potassium 5.0, chloride 104, carbon dioxide 24, anion gap reduced to 15, BUN 36, creatinine 2.3, glucose 172 Creatinine kinase 621, decreased to 331 CK-MB 4.0-4.5 Troponin 0 0.122 has increased to 0.316 ABG on night of admission: 7.4/30 6/65, total bicarb 19.9 EKG. Noted as sinus rhythm, normal rate, intervals, no T-wave changes or Q waves noted Radiology: Personally reviewed reports and images with no pertinent changes unless noted here: Repeat chest x-ray 06/03/2017worsening of the patchy parenchymal consolidations bilaterally. Increasing density obscuring the left hemidiaphragm. Cardiomediastinal contours are stable with mild cardiomegaly. 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 Impression: Worsening patchy consolidations bilaterally Assessments: #Bilateral pneumonia, most likely secondary to aspiration events occurring chronically. Associated with blood-tinged sputum hemoptysis. Which are most likely secondary to severe achalasia, food stacking in the esophagus, with subsequent regurgitation, and inadvertent aspiration. Severe, improving, but still requiring oxygen, scheduled breathing treatments [id number] without underlying lung disease. #NSTEMI type II: Most likely secondary to demand ischemia in the setting of severe pulmonary infection and hypoxia. Most recent troponin was still uptrending. #RADHA on CKD: Unclear cause at this time. Differential diagnosis includes poor forward circulating volume in the setting of severe aortic stenosis, possible prerenal etiology, possible intrinsic renal disease, less likely obstructive or UTI in current clinical setting. Also with hypoxic events, possible endorgan damage related to this. Has previously been seen by nephrology. #Anemia. Progressively worsening, MCV 96. Most likely secondary to hemoptysis. No other overt sources of blood loss outside of phlebotomy. No current evidence of erosion into large vessel, seems to be associated with infection only. Patient is a prior non-smoker, cannot rule out underlying pulmonary malignancy. #Severe aortic stenosis: Prior cardiac surgeon determined the patient to high risk for open valve replacement, planning to be considered for TAVR as an outpatient. May significantly influence patient's ability to tolerate fluid shifts during this admission. #Leukocytosis: Increased from admission until yesterday. Repeat labs pending now. Possibly due to worsening infection versus steroid effect. #Achalasia: s/p botox injection on 06/01/2017. Stable. No recurrence of regurgitation and aspiration per patient. Tolerating slowly advanced diet. No likely surgical candidate based on prior cardiac surgery referral, and untreated severe . #Other specified counseling -- The patient was seen for greater than 30 minutes. The patient was counseled for greater than 50% of this time regarding differential diagnosis, likely diagnosis, diagnostic and therapeutic alternatives, risks/benefits/alternatives of medications and procedures, and plan of care generally. The patient expressed understanding and wishes to proceed. Recommendations: -Repeat stat CBC, CMP, troponin, -Repeat creatinine, UA. Urine lites will be less helpful in the setting of chronic Lasix use. Can consider kidney imaging as needed -Continue pulmonary treatment per pulmonary Recs, with IV clindamycin, ceftriaxone, IV Solu-Medrol, duo nebs every 4 hours -Ordered sputum cultures -Ordered blood cultures, acknowledging patient has been on antibiotics for 48 hours -Continue Plavix, aspirin, Lipitor, Coreg. Hold lisinopril for now in the setting of RADHA, as well as Lasix is patient was n.p.o. for a period of time with severe aortic stenosis. -Continue to monitor hemoglobin and hemoptysis. -Will consider increasing Lipitor to 80 mg daily if CK has normalized -consult to hospitalist service for severity of medical illness of multiple body systems, acute on chronic, not pertaining to the GI tract, that may require urgent management while GI is not physically in the hospital. Shahrzad Vergara MD, MPH STAFF [employer]IEF MAP MODELER Current Visit: Yes Exam (Progress Note) - Constitutional Vitals: Period Temp Pulse Resp BP Sys/Rolle Pulse Ox Last 24 Hr 97.3 F-98.2 F 82-102 16-22 107-125/55-76 90-99 Results - Labs CBC & BMP: 06/03/17 19:12 06/03/17 19:12
--- NOTE | 2017-06-03 20:30 | Hospitalist Consult Note ---
History of Present Illness - Data of Consult Consult date: 06/03/17 Requesting Physician: Shahrzad Vergara - Consult Narrative Reason for consult: Medical management of multiple medical problems History of present illness: Mr. Bull is a 87 year old male who was admitted for dysphagia 2nd to achalasia and underwent EGD with botox injections. Hospitalist service consulted for various medical problems. He has elevated troponin levels in the setting of CKD. He has a history of ASCAD and had a stent placed in March 2017. He is on aspirin and plavix. He states that he has sharp, left sided chest pain that would sometimes radiate to his left arm causing some numbness. He has associated SOB. Chest pain would occur with exertion and would scooby a few minutes with resting or with nitroglycerin tablets. Yesterday, he had his typical chest pain and took two nitroglycerin tablets. Chest pain went away a few minutes after taking his tablets. He states that he has had this type of chest pain for the past 6 months. It has not worsened. He is also being treated for suspected aspiration pneumonia. He states that his breathing has improved. He is on antibiotics, solumedrol, and is receiving nebulizer therapy. He also states that his dysphagia has resolved. He was able to eat some chicken tonight and tolerated it. He denies any fevers, chills, or lightheadness. CC: Peng Vergara - Home Medications and Allergies Home Medications: Home Medications Medication Instructions Recorded Confirmed Type Allopurinol 100 mg PO DAILY 07/12/15 06/01/17 History Atorvastatin [Lipitor] 10 mg PO DAILY 07/12/15 06/01/17 History Carvedilol [Coreg] 12.5 mg PO BID 07/12/15 06/01/17 History Omeprazole [Prilosec] 20 mg PO BEDTIME 07/12/15 06/01/17 History Aspirin EC Tab 81 mg PO DAILY tablet 07/20/15 06/01/17 Rx Nitroglycerin Sl Tab [Nitrostat] 0.4 mg SL Q5M PRN #25 tablet 07/20/15 06/01/17 Rx Ferrous Sulfate 325 mg PO DAILY 02/25/17 06/01/17 History Finasteride 5 mg PO DAILY 02/25/17 06/01/17 History Gabapentin 300 mg PO BID 02/25/17 06/01/17 History Lisinopril 20 mg PO DAILY 02/25/17 06/01/17 History Multivitamin/Iron/Folic Acid 1 each PO DAILY 02/25/17 06/01/17 History [Centrum Complete Multivit Tab] Furosemide Tab [Lasix Tab] 20 mg PO DAILY 03/24/17 06/01/17 History Clopidogrel [Plavix] 75 mg PO DAILY 05/15/17 06/01/17 History Pramipexole [Mirapex] 1 mg PO BEDTIME 05/15/17 06/01/17 History Allergies/Adverse Reactions: Allergies Allergy/AdvReac Type Severity Reaction Status Date / Time No Known Allergies Allergy Verified 03/24/17 10:05 Medical,Surgical,& Family Hx - Medical History Cardio: History of: CAD (prior [place] with stents), Hypertension, [place], Cardiovascular Problems (status post cath with stents) No history of: Cardiac Dysrhythmia, Pacemaker Neurology: No history of: Seizures Endocrine: History of: Dyslipidemia Rheumatology: History of;: Gout Respiratory: History of: Obstructive Sleep Apnea (SLEEPS WITH CPAP) Renal: History of: Renal Failure (Baseline creatinine 1.5-1.7) Genitourinary: History of: Kidney Stones, Prostate Problems (CA WITH RADIATION) No history of: Bladder Problem Gastrointestinal: History of: Diverticulitis/ Diverticulosis, GERD, GI Problems (achalasia) No history of: Polyps Musculoskeletal: No history of: Amputation Hematology: No history of: Blood Transfusion Reaction Other: History of: Cancer (PROSTATE) No history of: Anesthesia Reactions - Surgical History Cardiac Surgeries: Sugical HX of: Cardiac Catheterization Thoracic Surgeries: Patient denies;: Organ Transplant, Lobectomy Neurologic Surgeries: Patient denies: Neurologic Surgery HEENT Surgeries: Surgical HX of: Eye Surgery (CATARACT RIGHT) Patient denies: Tonsilectomy & Adenoidectomy Abdominal Surgeries: Surgical HX of: Abdominal Surgery, Appendectomy, Colonoscopy, EGD Patient denies: Cholecystectomy, Hernia Repair Reproductive Surgeries: Patient denies;: Prostate Surgery Orthopedic Surgeries: Surgical HX of;: Orthopedic Surgery (RIGHT KNEE SCOPE) - Family History Family History: Reports;: Family Cancer (brother skin ca), Family Heart Disease (brother cabg), Family Hypertension - Social History Smoking Status: Never smoker Frequency of Alcohol Use: None Type of Drug Use: None 12 point system: reviewed and no additional remarkable complaints except as stated Exam - Constitutional Vitals: Period Temp Pulse Resp BP Sys/Rolle Pulse Ox Last 24 Hr 97.3 F-98.2 F 82-100 16-22 112-125/56-76 90-99 General appearance: no acute distress - Head Head exam: Present: normocephalic, atraumatic - Eye Eye exam: Present: EOMI Pupils: Present: JONELLE - Respiratory Respiratory exam: Present: decreased breath sounds (descent air movement), rales , rhonchi (coarse breath sounds in the bases) - Cardiovascular Cardiovascular exam: Present: regular rate and rhythm, systolic murmur - GI/Abdominal GI/Abdominal exam: Present: normal bowel sounds, soft. Absent: tenderness - Extremities Exam Extremities exam: Present: edema (1+) - Neurological Exam Neurological exam: Present: alert, oriented X3 - Psychiatric Psychiatric exam: Present: normal affect, normal mood Results - Labs CBC & BMP: 06/03/17 19:12 06/03/17 19:12 - EKG EKG results: sinus rhythm (06/03: NSR with non specific ST-T wave abnormality in lateral leads) - Impressions 1. Bilateral pneumonia, likely aspiration: being cared for by pulmonary. Leukocytosis is fairly stable. Afebrile. O2 saturations: 99% on 3L. On clindamycin and rocephin/steroids/nebs/oxygen. Continue current therapy. 2. Dysphagia 2nd to achalasia s/p EGD with botox injection: dysphagia improved. Being cared for by GI. Will consult speech for recommendation for diet. 3. ASCAD s/p recent stent placement: on aspirin/plavix/beta ruchi/statin. Alxe- i on hold given azotemia. 4. Chronic stable angina: chest pain resolves with nitroglycerin and rest. May consider addition of chronic nitrate therapy (i.e., imdur). 5. Elevated TNI: in the setting of Acute on CKD. Likely type II. He was having tachycardic episodes during this admission. He is on asa and plavix. Consider cardiology consult. Trend TNIs. 6. h/o aortic stenosis: pre load dependent 7. Acute on CKD. Baseline creatinine: 1.5-1.7. Creatinine today shows slight improvement. Lisinopril and lasix have been discontinued. Continue to monitor renal functions. Avoid nephrotoxins. If worsens, obtain renal ultrasound and consider nephrology consult. 8. LEESA:on CPAP 9. HTN: blood pressure controlled; continue current therapy 10. Anemia: Most recent HCT from 02/15 and 03/18 is around 33-35. Today's HCT is slightly lower. Will obtain basic lab work up. Monitor and transfuse if hb <10. On PPI. Being cared for by GI and pulmonary Thanks for allowing the hospitalist service an opportunity to be involved in Mr. Bull' care. We will continue to follow the patient with you. - Diagnostic Findings Procedure: Chest x-ray: report reviewed by me (worsening patchy consolidations bilaterally)
[2017-06-03] MEDS: PRAMIPEXOLE 0.25 MG TABLET PO SCH (20:39)
[2017-06-03 21:42] LABS: Apearance,Urine CLEAR (Clear); Bilirubin,Urine Negative (Negative); Blood, Urine Negative (Negative); Glucose,Urine (UA) Negative (Negative); Ketones,Urine Negative (Negative); Mucus,Urine Occasional /LPF (Occasional); Nitrite,Urine Negative (Negative); Protein,Urine Negative; RBC,Urine <1 /HPF (0-4); Squamous Epithelial Cell,Urine Occasional /HPF (0-10); Urine Color Yellow (Yellow); Urine Specific Gravity 1.008 (1.001-1.035); Urine Urobilinogen < 2.0 EU/DL (0.2-1.0); WBC,Urine <1 /HPF (0-6)
[2017-06-03 23:08] LABS: Band Neutrophils 4 % (0-10); Lymphocytes 2 % (20-55); Platelet Estimate Normal; Segmented Neutrophils 91 % (50-85); Total Cells Counted 100
[2017-06-04 04:21] LABS: Basophils % 0.1 % (0.0-0.8); Hemoglobin 10.3 GM/DL (14.0-18.0); Immature Granulocytes % 1.5 %; Lymphocytes # 0.4 10*3/uL (1.4-4.0); Lymphocytes % 2.8 % (21.2-54.2); Mean Corpuscular HGB Conc 33.2 GM/DL (32-36); Mean Corpuscular Hemoglobin 32 PG (27-34); Mean Corpuscular Volume 96.9 FL (87-102); Mean Platelet Volume 9.9 FL (9.6-12.0); Monocytes # 0.3 10*3/uL (0.11-0.8); Monocytes % 2.6 % (1.7-12.7); Neutrophils # 12.2 10*3/uL (1.4-7.4); Platelet Count 194 T/CUMM (130-400); Red Cell Distribution Width 14.2 % (9.3-17.3); White Blood Count 13.1 T/CUMM (4-12)
[2017-06-04] MEDS: ALBUTEROL/IPRATROPIUM 3 ML NEB RESP TX SCH ×5 (04:32→20:06)
[2017-06-04 04:52] LABS: Calcium 8.7 MG/DL (8.5-10.1); Potassium 4.6 MMOL/L (3.5-5.1)
[2017-06-04 04:57] LABS: % Iron Saturation 18.4 % (18-50); Ferritin 202.5 ng/ml (26-388)
[2017-06-04] MEDS: CLINDAMYCIN INJ 600 MG in PREMIX 1 EACH IV SCH ×3 (06:10→23:19)
[2017-06-04] MEDS: ONDANSETRON 4 MG/2 ML VIAL IV PRN ×2 (06:11→23:24)
[2017-06-04 07:32] LABS: Band Neutrophils 8 % (0-10); Hypochromasia 2+; Lymphocytes 1 % (20-55); Microcytosis 1+; Platelet Estimate Adequate; Segmented Neutrophils 87 % (50-85); Total Cells Counted 100
[2017-06-04] MEDS: methylPREDNISolone SOD SUC 40 MG/1 ML VIAL IV SCH ×3 (09:33→23:19)
[2017-06-04] MEDS: GABAPENTIN 300 MG CAPSULE PO SCH ×2 (09:33→20:25)
[2017-06-04] MEDS: ASPIRIN EC 81 MG TABLET PO SCH (09:33)
[2017-06-04] MEDS: PANTOPRAZOLE 40 MG TABLET PO SCH (09:34)
[2017-06-04] MEDS: CARVEDILOL 12.5 MG TABLET PO SCH ×2 (09:34→20:25)
[2017-06-04] MEDS: ALLOPURINOL 100 MG TABLET PO SCH (09:34)
[2017-06-04] MEDS: FINASTERIDE 5 MG TABLET PO SCH (09:34)
[2017-06-04] MEDS: ATORVASTATIN 10 MG TABLET PO SCH (09:34)
[2017-06-04] MEDS: CLOPIDOGREL 75 MG TABLET PO SCH (09:34)
--- NOTE | 2017-06-04 12:49 | ECHO Report ---
Haseeb Bull Exam Date: 06/04/2017 10:32 Referring Physician: Technologist: Age: 87 Ht (in): Wt (lb): Gender: M Exam Location: [facility] Echo Indications: BP: / HR: Rhythm: Sinus Technical Quality: Technically difficult study IMPRESSIONS Technically difficult study. EF 45-50 %. Grade II/IV diastolic dysfunction, moderately elevated filling pressures. Normal right ventricular size and systolic function. The right atrium is mildly enlarged. The left atrium is mildly enlarged. Mildly thickened mitral valve. Mild mitral valve regurgitation. Severe aortic valve stenosis, mean gradient 41 mmHg, ARLENE 0.59 cm. Trace aortic valve regurgitation. Moderate tricuspid valve regurgitation. [id number]. Trace pulmonary valve regurgitation. No pericardial effusion. Normal aorta. MEASUREMENTS (Male / Female) Normal Values 2D ECHO LV Diastolic Diameter PLAX 3.8 cm 4.2 - 5.9 / 3.9 - 5.3 cm LV Systolic Diameter PLAX 3.0 cm LV Fractional Shortening PLAX 20.9 % IVS Diastolic Thickness 1.2 cm 0.6 - 1.0 / 0.6 - 0.9 cm LVPW Diastolic Thickness 1.3 cm 0.6 - 1.0 / 0.6 - 0.9 cm Aortic Root Diameter 2.4 cm LA Systolic Diameter LX 4.1 cm 3.0 - 4.0 / 2.7 - 3.8 cm DOPPLER TR Peak Velocity 285.0 cm/s TR Peak Gradient 32.5 mmHg FINDINGS Left Ventricle EF 45-50 %. Grade II/IV diastolic dysfunction, moderately elevated filling pressures. Right Ventricle Normal right ventricular size and systolic function. Right Atrium The right atrium is mildly enlarged. Left Atrium The left atrium is mildly enlarged. Mitral Valve Mildly thickened mitral valve. Mild mitral valve regurgitation. Aortic Valve Severe aortic valve stenosis, mean gradient 41 mmHg, ARLENE 0.59 cm. Peak gradient 60mmHG. trace aortic valve regurgitation. Tricuspid Valve Morphologically normal tricuspid valve. Moderate tricuspid valve regurgitation. [id number]. Pulmonic Valve Pulmonic valve not well visualized. Trace pulmonary valve regurgitation. Pericardium No pericardial effusion. Aorta Normal aorta. Tone Villagomez (Electronically Signed) Final Date: 04 June 2017 12:48
--- NOTE | 2017-06-04 13:38 | Gastrointestinal Progress Note ---
Assessment and Plan - Time spent with patient Time spent with patient: Greater than 30 minutes (1) Bilateral pneumonia Status: Acute Current Visit: Yes (2) Non-STEMI (non-ST elevated myocardial infarction) Status: Acute Current Visit: No (3) Stented coronary artery Status: Acute Current Visit: No (4) Chronic renal insufficiency, stage III (moderate) Status: Chronic Current Visit: No (5) High risk medication use Status: Chronic Current Visit: No (6) Acute renal failure Status: Acute Current Visit: No (7) Aortic stenosis Problem details: 3+ Status: Chronic Current Visit: No (8) Achalasia Status: Acute Assessment and plan: PLEASE NOTE -- automatic citation of patient information is unavoidable in this electronic note. I have made a reasonable effort to review the information cited , but it is not a part of my evaluation, impression, or recommendation unless specifically discussed in the dictated text that follows. As well, voice recognition software was used in the creation of this clinical note. Reasonable effort was made to identify and correct gross errors. Despite proofreading, errors in cognos report developer may be present, including nonsense verbiage at times. If you encounter such an error, please contact me at for discussion and correction. -- Jai Chief complaint: Follow-up possible aspiration pneumonia, achalasia, NSTEMI 2 24 hour events: Troponin downtrending, patient seen by hospitalist service, Dr. Ruth, appreciate recommendations . Blood and sputum culture sent last night. Echo done this morning. subjective: Mr. Haseeb Neves is an 87-year-old man with severe 4+ aortic stenosis, coronary artery disease status post stent placement to the proximal LAD in March 2017, on Plavix and aspirin, with achalasia, who underwent EGD with Botox injection to the GE junction on June 01, 2017. Was admitted afterward for persistent hypoxia, with report of 4 weeks progressive worsening coughing episodes, emesis in his sleep, with choking on food substances, likely from retained food in the esophagus. Cough and breathing continuing to improve, tolerating advancement of diet from full liquids, soft foods, and now on cardiac diet. Still endorsing mild symptoms of dysphasia at the sternal notch with easy passage. States he has not been drinking as much water as he normally does at home. Improved sleep and tolerance of reclined position. Medications: No new changes Ceftriaxone 1 g every 24started 06/03/2017 Clindamycin 600 mg every 8 hoursstarted 06/01/17 Solu-Medrol 40 mg IV every 8 hoursstarted 06/02/17 Mucinex 1200 mg p.o. twice daily Duo nebs every 4 hours scheduled Plavix 75 mg daily Aspirin 81 mg daily Protonix 40 mg p.o. daily Lisinopril 20 mg daily Lipitor 10 mg daily Lasix 20 mg p.o. daily Coreg 12.5 mg p.o. twice daily Allopurinol 100 mg daily Proscar 5 mg daily Neurontin 300 mg twice daily Zofran as needed Mirapex 1 mg p.o. nightly Lovenox 40 mg daily for DVT prophylaxis Magnesium hydroxide as needed REVIEW OF SYSTEMS: Complete other review of systems negative except as noted in the HPI PHYSICAL EXAMINATION: CONSTITUTIONAL: Vital signs reviewed as documented above. In no acute distress. Nontoxic-appearing. EYES: Anicteric conjunctiva. Extra-ocular movements are intact and symmetric. EARS: Able to hear speech at conversational volume level, no external trauma/ masses. MOUTH: No oral/mouth lesions or ulcers. NECK: No masses or crepitus. Thyroid is of normal size and symmetric. HEART: Regular rate, regular rhythm LUNGS: No increased work of breathing or accessory muscle use. GI/ABDOMEN: Nonobese abdomen, soft, nontender to palpation, no rebound tenderness, nondistended, no rigidity. No palpable mass. No appreciable hepatosplenomegaly. SKIN: No rash on face, arms, or hands. No palpable lesions MUSCULOSKELETAL: Normal gait. Muscle tone appears normal without any abnormal movements. PSYCH: Normal affect. Alert and oriented to person, place, and time. Laboratory: Personally reviewed CBCWBC down to 13.1, hemoglobin 10.3 stable, platelets 194, neutrophil percent 93, with 87% segmented neutrophils Chemistrysodium 136, potassium 4.6, chloride 102, carbon dioxide 29, anion gap 9.6, BUN 58, creatinine increased to 2.1, glucose 148, calcium 8.7, magnesium 3.0 Iron 45, TIBC 245, percent saturation 18, ferritin 202 Vitamin B12 570, folate 18, reticulocyte count elevated UA within normal limits BNP 246 Troponin overall trend 0.122, 0.316, 0.339, 0.298 ABG on night of admission: 7.4/30 6/65, total bicarb 19.9 Radiology: Personally reviewed reports and images with no pertinent changes unless noted here: Repeat chest x-ray 06/04/2017read not available. I reviewed the images. Appears to have significant overall improvement bilaterally, with persistent consolidation in the left lower lung field, possible small left pleural effusion repeat chest x-ray 06/03/2017worsening of the patchy parenchymal consolidations bilaterally. Increasing density obscuring the left hemidiaphragm. Cardiomediastinal contours are stable with mild cardiomegaly. 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 Impression: Worsening patchy consolidations bilaterally Cardiac echo done 06/04/17, slight decline in overall EF of 40-50%. Persistent severe aortic stenosis. Assessments: #Bilateral pneumonia, most likely secondary to aspiration events occurring chronically. Associated with blood-tinged sputum hemoptysis. Aspiration events most likely secondary to severe achalasia, food stacking in the esophagus , with subsequent regurgitation, and inadvertent aspiration. Improving with current treatment regimen, but still requiring oxygen, scheduled breathing treatments [id number] without underlying lung disease. #NSTEMI type II: Most likely secondary to demand ischemia in the setting of severe pulmonary infection and hypoxia. Likely decreased clearance in the setting of RADHA. No recurrent events with improvement in pulmonary status. #RADHA on CKD: Persistent. Patient appears euvolemic in the setting of severe aortic stenosis, but reporting decreased fluid intake since hospitalized although he tolerates liquids now fine since Botox injection. Urine lites not pursued due to Lasix use. UA within normal limits. #Achalasia: s/p botox injection on 06/01/2017. Stable. No recurrence of regurgitation and aspiration per patient. Tolerating advanced diet. No likely surgical candidate based on prior cardiac surgery referral, and untreated severe . #Anemia. Progressively worsening, MCV 96. Most likely secondary to hemoptysis. No other overt sources of blood loss outside of phlebotomy. No current evidence of erosion into large vessel, seems to be associated with infection only. Patient is a prior non-smoker, cannot rule out underlying pulmonary malignancy. B12 and folate are normal. Iron levels are acceptable, especially in the setting of severe illness with depressed TIBC. Reticulocyte count is appropriately raised. #Severe aortic stenosis: Prior cardiac surgeon determined the patient to high risk for open valve replacement, planning to be considered for TAVR as an outpatient. May significantly influence patient's ability to tolerate fluid shifts during this admission. #CHF. Mild. No clear evidence of exacerbation at this time. Holding home Lasix and setting of RADHA. Complicated by severe aortic stenosis as noted above. #Leukocytosis: Improving. Presumed secondary to pulmonary infection. #Other specified counseling -- The patient was seen for greater than 30 minutes. The patient was counseled for greater than 50% of this time regarding differential diagnosis, likely diagnosis, diagnostic and therapeutic alternatives, risks/benefits/alternatives of medications and procedures, and plan of care generally. The patient expressed understanding and wishes to proceed. Recommendations: -Continue pulmonary treatment per pulmonary Recs, with IV clindamycin, ceftriaxone, IV Solu-Medrol, duo nebs every 4 hours -Trial off O2 today to see if patient tolerates, currently tolerating -Nephrology consult for RADHA on CKD -Still awaiting echo ordered yesterday, as last was done 2 weeks prior to cardiac intervention in setting of orthopnea, recurrent CP, NSTEMI2, RADHA, severe -Follow-up sputum and blood cultures, first result should be around midnight tonight. Drawn at least 48 hours after antibiotics initiated. -Continue Plavix, aspirin, Lipitor, Coreg. Continue to hold lisinopril and Lasix (discontinued 06/03/2017) -Continue to monitor hemoglobin and hemoptysis. -Continue diet as tolerated with known achalasia status post Botox injection Shahrzad Vergara MD, MPH STAFF REGISTERED PHARMACY TECHNICIAN Current Visit: Yes Exam (Progress Note) - Constitutional Vitals: Period Temp Pulse Resp BP Sys/Rolle Pulse Ox Last 24 Hr 96.6 F-97.9 F 84-100 16-20 123-167/64-88 91-99 Results - Labs CBC & BMP: 06/04/17 04:05 06/04/17 04:05
--- NOTE | 2017-06-04 13:38 | XRay Report ---
Portable chest June 04, 2017 Indication: Soreness of breath Comparison images from previous day at 0409 hours Findings: Cardiac and mediastinal contours are stable with underlying cardiomegaly. Background coarsened interstitial pattern with again parenchymal opacities throughout the left lung, relatively unchanged in the interim. Likely layering effusion on the left. No acute osseous abnormalities. Impression: No interval change in appearance the chest PROCEDURE INTERPRETED AT [facility] DEPARTMENT OF RADIOLOGY Final Report Signed by: Jeremie Conde
--- NOTE | 2017-06-04 13:55 | Pulmonology Progress Note ---
Pulmonary - PN: Subj Interval history: This is an 87-year-old male with heart disease and achalasia. He had EGD2 days ago. He has had Botox injection. Since then he has been short of breath. He had an aspiration episode. He now has a fairly large left lower lung pneumonia. He is beginning to improve and he is more comfortable. He is on antibiotics.06/03/2017 chest x-ray shows normal size heart. There is extensive left upper lung left lower lung infiltrate infiltrates in the right upper lung and the medial posterior basal segment of the right lower lung. No positive cultures. Troponin is 0.316. Recent creatinine was 2.30 up from 1.60 this will be repeated. Last white count was 14,200. Patient feels like he is better. 06/04/2017. This patient is stable today. He has no new complaints. His chest is a little clearer and he is breathing fine. He was seen with a family member. Today's chest x-ray shows cardiomegaly is a right upper lung infiltrate and there is some perihilar interstitial scarring. There is an old scar at the left costophrenic angle. There are multiple areas of interstitial scarring in the right lower lung. These are old with calcifications. Electrolytes are normal. Creatinine is 2.1 with a BUN of 58. CBC is stable with a white blood cell count of 13,193 segs Vital signs. See below. Patient is afebrile. Psychiatric. Appears to be oriented. General no distress Face. Symmetrical. No edema. Neck. Symmetrical no meningismus Chest. Mild to moderate bilateral lymph large airway congestion. Heart no gallop Abdomen. Nondistended. Positive bowel sounds. Extremities. Nothing to suggest deep venous thrombophlebitis Neurologic. Cranial nerves are intact with decreased hearing acuity. Patient moves all 4 extremities. Sensory exam was not done in gait was not tested. The remainder the exam is noncontributory Plan. 06/03/2017. 1. Repeat chest x-ray, CBC, BMP and BNP 2. Continue present regimen. 06/04/2017 1. See today's note above. 2. Continue present regimen. Exam (Progress Note) - Constitutional Vitals: Period Temp Pulse Resp BP Sys/Rolle Pulse Ox Last 24 Hr 96.6 F-97.9 F 84-100 16-20 123-167/64-88 91-99 Results - Labs CBC & BMP: 06/04/17 04:05 06/04/17 04:05
[2017-06-04] MEDS: ENOXAPARIN 40 MG/0.4 ML SYRINGE SUBCUT SCH (14:19)
[2017-06-04] MEDS: cefTRIAXone 1,000 MG in SODIUM CHLORIDE 0.9% 100 ML IV SCH (16:29)
--- NOTE | 2017-06-04 18:20 | Nephrology Consult Note ---
History of Present Illness Chief complaint: ARF on CRF History of present illness: Mr. Bull is a 87 year old male who underwent EGD on 06/01/2017. He had persistent hypoxia postoperatively. Chest x-ray showed pneumonia. He had had episodes of aspiration prior to admission. He has been treated with antibiotics and his shortness of breath has improved considerably. He has chronic renal insufficiency. I have seen him as an outpatient in the past. His baseline creatinine is 1.8. It has risen somewhat during this admission. Home Medications Medication Instructions Recorded Confirmed Type Allopurinol 100 mg PO DAILY 07/12/15 06/01/17 History Atorvastatin [Lipitor] 10 mg PO DAILY 07/12/15 06/01/17 History Carvedilol [Coreg] 12.5 mg PO BID 07/12/15 06/01/17 History Omeprazole [Prilosec] 20 mg PO BEDTIME 07/12/15 06/01/17 History Aspirin EC Tab 81 mg PO DAILY tablet 07/20/15 06/01/17 Rx Nitroglycerin Sl Tab [Nitrostat] 0.4 mg SL Q5M PRN #25 tablet 07/20/15 06/01/17 Rx Ferrous Sulfate 325 mg PO DAILY 02/25/17 06/01/17 History Finasteride 5 mg PO DAILY 02/25/17 06/01/17 History Gabapentin 300 mg PO BID 02/25/17 06/01/17 History Lisinopril 20 mg PO DAILY 02/25/17 06/01/17 History Multivitamin/Iron/Folic Acid 1 each PO DAILY 02/25/17 06/01/17 History [Centrum Complete Multivit Tab] Furosemide Tab [Lasix Tab] 20 mg PO DAILY 03/24/17 06/01/17 History Clopidogrel [Plavix] 75 mg PO DAILY 05/15/17 06/01/17 History Pramipexole [Mirapex] 1 mg PO BEDTIME 05/15/17 06/01/17 History Allergies Allergy/AdvReac Type Severity Reaction Status Date / Time No Known Allergies Allergy Verified 03/24/17 10:05 Medical,Surgical,& Family Hx - Medical History Cardio: History of: CAD (prior ND with stents), Hypertension, ND, Cardiovascular Problems (status post cath with stents) No history of: Cardiac Dysrhythmia, Pacemaker Neurology: No history of: Seizures Endocrine: History of: Dyslipidemia Rheumatology: History of;: Gout Respiratory: History of: Obstructive Sleep Apnea (SLEEPS WITH CPAP) Renal: History of: Renal Failure (Baseline creatinine 1.5-1.7) Genitourinary: History of: Kidney Stones, Prostate Problems (CA WITH RADIATION) No history of: Bladder Problem Gastrointestinal: History of: Diverticulitis/ Diverticulosis, GERD, GI Problems (achalasia) No history of: Polyps Musculoskeletal: No history of: Amputation Hematology: No history of: Blood Transfusion Reaction Other: History of: Cancer (PROSTATE) No history of: Anesthesia Reactions - Surgical History Cardiac Surgeries: Sugical HX of: Cardiac Catheterization Thoracic Surgeries: Patient denies;: Organ Transplant, Lobectomy Neurologic Surgeries: Patient denies: Neurologic Surgery HEENT Surgeries: Surgical HX of: Eye Surgery (CATARACT RIGHT) Patient denies: Tonsilectomy & Adenoidectomy Abdominal Surgeries: Surgical HX of: Abdominal Surgery, Appendectomy, Colonoscopy, EGD Patient denies: Cholecystectomy, Hernia Repair Reproductive Surgeries: Patient denies;: Prostate Surgery Orthopedic Surgeries: Surgical HX of;: Orthopedic Surgery (RIGHT KNEE SCOPE) - Family History Family History: Reports;: Family Cancer (brother skin ca), Family Heart Disease (brother cabg), Family Hypertension - Social History Smoking Status: Never smoker Frequency of Alcohol Use: None Type of Drug Use: None Review of Systems 12 point system: reviewed and no additional remarkable complaints except as stated Exam - Vital Signs Vital signs: Period Temp Pulse Resp BP Sys/Rolle Pulse Ox Last 24 Hr 96.6 F-97.7 F 77-97 16-20 131-167/61-88 91-99 Exam: Gen.: Alert and oriented x3. ENT: Pupils equal round reactive to light. EOMs intact. Mucous membranes moist. Neck: Supple. No JVD or bruit. Cardiovascular: Regular rate and rhythm. No murmur rub or gallop Lungs: Few crackles in the right base. Left clear Abdomen: Soft. Nontender. Positive bowel sounds. No organomegaly Extremities: 1+ edema Results - Labs CBC & BMP: 06/04/17 04:05 06/04/17 04:05 Assessment and Plan (1) Chronic renal insufficiency, stage III (moderate) Status: Chronic Assessment and plan: 87-year-old man with: * CRF 3. Baseline creatinine 1.8 * Acute worsening of chronic renal failure. P.o. intake has been less recently. Lisinopril and Lasix discontinued yesterday. I agree with this. Renal function has begun to improve * Pneumonia. Presumed secondary to aspiration. Improving with current treatment * CAD * Aortic stenosis * Achalasia Current Visit: No (2) Achalasia Status: Acute Current Visit: Yes (3) Bilateral pneumonia Status: Acute Current Visit: Yes (4) Aortic stenosis Problem details: 3+ Status: Chronic Current Visit: No (5) CAD (coronary artery disease) Status: Chronic Current Visit: No (6) Hypertension Status: Chronic Current Visit: No
[2017-06-04] MEDS: PRAMIPEXOLE 0.25 MG TABLET PO SCH (20:24)
[2017-06-05] MEDS: ALBUTEROL/IPRATROPIUM 3 ML NEB RESP TX SCH ×6 (00:21→20:02)
[2017-06-05 03:55] LABS: Calcium 8.2 MG/DL (8.5-10.1); Osmolality,Calculated 295.5 MOS/KG (273-304); Potassium 4.8 MMOL/L (3.5-5.1)
[2017-06-05] MEDS: CLINDAMYCIN INJ 600 MG in PREMIX 1 EACH IV SCH ×2 (06:04→14:21)
[2017-06-05] MEDS: methylPREDNISolone SOD SUC 40 MG/1 ML VIAL IV SCH ×2 (09:20→17:05)
[2017-06-05] MEDS: PANTOPRAZOLE 40 MG TABLET PO SCH (09:21)
[2017-06-05] MEDS: CARVEDILOL 12.5 MG TABLET PO SCH ×2 (09:21→21:38)
[2017-06-05] MEDS: FINASTERIDE 5 MG TABLET PO SCH (09:21)
[2017-06-05] MEDS: ALLOPURINOL 100 MG TABLET PO SCH (09:21)
[2017-06-05] MEDS: ASPIRIN EC 81 MG TABLET PO SCH (09:21)
[2017-06-05] MEDS: ATORVASTATIN 10 MG TABLET PO SCH (09:21)
[2017-06-05] MEDS: CLOPIDOGREL 75 MG TABLET PO SCH (09:21)
[2017-06-05] MEDS: GABAPENTIN 300 MG CAPSULE PO SCH ×2 (09:21→21:38)
--- NOTE | 2017-06-05 09:50 | XRay Report ---
Portable chest June 05, 2017 at 0525 hours Indication: Difficulty breathing Comparison images from previous day at 0550 hours Findings: Patchy interstitial and alveolar opacities in a perihilar and left upper lobe distribution, relatively unchanged. Stable pleural and parenchymal opacity of securing left hemidiaphragm. Accelerated degenerative changes across glenohumeral joints. No acute osseous abnormalities. Impression: No interval change in the appearance of the chest PROCEDURE INTERPRETED AT [facility] DEPARTMENT OF RADIOLOGY Final Report Signed by: Jeremie Conde
--- NOTE | 2017-06-05 11:02 | Gastrointestinal Progress Note ---
Assessment and Plan (1) Bilateral pneumonia Status: Acute Current Visit: Yes (2) Non-STEMI (non-ST elevated myocardial infarction) Status: Acute Current Visit: No (3) Stented coronary artery Status: Acute Current Visit: No (4) Chronic renal insufficiency, stage III (moderate) Status: Chronic Current Visit: No (5) High risk medication use Status: Chronic Current Visit: No (6) Acute renal failure Status: Acute Current Visit: No (7) Aortic stenosis Problem details: 3+ Status: Chronic Current Visit: No (8) Achalasia Status: Acute Assessment and plan: PLEASE NOTE -- automatic citation of patient information is unavoidable in this electronic note. I have made a reasonable effort to review the information cited , but it is not a part of my evaluation, impression, or recommendation unless specifically discussed in the dictated text that follows. As well, voice recognition software was used in the creation of this clinical note. Reasonable effort was made to identify and correct gross errors. Despite proofreading, errors in wildlife refuge specialist may be present, including nonsense verbiage at times. If you encounter such an error, please contact me at [phone] for discussion and correction. -- Jai Chief complaint: Follow-up possible aspiration pneumonia, achalasia, NSTEMI 2 24 hour events: patient did not tolerate off of O2 yesterday, desat to mid 80s, and O2 replaced at 2L [place]. Nephro saw pt with no new recs. subjective: Mr. Haseeb Neves is an 87-year-old man with severe 4+ aortic stenosis, coronary artery disease status post stent placement to the proximal LAD in March 2017, on Plavix and aspirin, with achalasia, who underwent EGD with Botox injection to the GE junction on June 01, 2017. Was admitted afterward for persistent hypoxia, with report of 4 weeks progressive worsening coughing episodes, emesis in his sleep, with choking on food substances, likely from retained food in the esophagus. Cough and breathing has continued to improve still since yesterday, reports that blood in sputum is lessening, still with significant productive cough. Is trying himself off of oxygen again this morning and breathing well thus far ( about 20 min). STates that swallowing is still slow, drinking between bites of food, but improving daily since botox injection. Did not sleep well last night, but not due ot coughin or discomfort of any kind Medications: No new changes Ceftriaxone 1 g every 24started 06/03/2017 Clindamycin 600 mg every 8 hoursstarted 06/01/17 Solu-Medrol 40 mg IV every 8 hours started 06/02/17 Mucinex 1200 mg p.o. twice daily Duo nebs every 4 hours scheduled Plavix 75 mg daily Aspirin 81 mg daily Protonix 40 mg p.o. daily Lisinopril 20 mg daily Lipitor 10 mg daily Lasix 20 mg p.o. daily Coreg 12.5 mg p.o. twice daily Allopurinol 100 mg daily Proscar 5 mg daily Neurontin 300 mg twice daily Zofran as needed Mirapex 1 mg p.o. nightly Lovenox 40 mg daily for DVT prophylaxis Magnesium hydroxide as needed REVIEW OF SYSTEMS: Complete other review of systems negative except as noted in the HPI PHYSICAL EXAMINATION: CONSTITUTIONAL: Vital signs reviewed as documented above. In no acute distress. Nontoxic-appearing. EYES: Anicteric conjunctiva. Extra-ocular movements are intact and symmetric. EARS: Able to hear speech at conversational volume level, no external trauma/ masses. MOUTH: No oral/mouth lesions or ulcers. NECK: No masses or crepitus. Thyroid is of normal size and symmetric. HEART: Regular rate, regular rhythm LUNGS: No increased work of breathing or accessory muscle use. GI/ABDOMEN: Nonobese abdomen, soft, nontender to palpation, no rebound tenderness, nondistended, no rigidity. No palpable mass. No appreciable hepatosplenomegaly. SKIN: No rash on face, arms, or hands. No palpable lesions MUSCULOSKELETAL: Normal gait. Muscle tone appears normal without any abnormal movements. PSYCH: Normal affect. Alert and oriented to person, place, and time. Laboratory: Personally reviewed No new or significant changes outside of creatinine down to 1.9. Blood cultures neg x 24 hours gram stain sputum pending, good sample with insignificant epithelial cells Prior: Iron 45, TIBC 245, percent saturation 18, ferritin 202 Vitamin B12 570, folate 18, reticulocyte count elevated UA within normal limits BNP 246 Troponin overall trend 0.122, 0.316, 0.339, 0.298 ABG on night of admission: 7.4/30 6/65, total bicarb 19.9 Radiology: Personally reviewed reports with no pertinent changes unless noted here: Repeat CXR 06/05/2017: no acute changes CXR 06/04/17: I reviewed the images. Appears to have significant overall improvement bilaterally, with persistent consolidation in the left lower lung field, possible small left pleural effusion CXR 06/03/2017worsening of the patchy parenchymal consolidations bilaterally. Increasing density obscuring the left hemidiaphragm. Cardiomediastinal contours are stable with mild cardiomegaly. 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 Impression: Worsening patchy consolidations bilaterally Cardiac echo done 06/04/17, slight decline in overall EF of 40-50%. Persistent severe aortic stenosis. Assessments: #Bilateral pneumonia, most likely secondary to aspiration events occurring chronically. Associated with blood-tinged sputum hemoptysis, which patient reports is overall improving. Aspiration events most likely secondary to severe achalasia, food stacking in the esophagus, with subsequent regurgitation , and inadvertent aspiration. Improving with current treatment regimen, but still requiring oxygen, scheduled breathing treatments [id number] without underlying lung disease. Attempting to wean O2 again today. #NSTEMI type II: Most likely secondary to demand ischemia in the setting of severe pulmonary infection and hypoxia. Likely decreased clearance in the setting of RADHA. No recurrent events with improvement in pulmonary status. #RADHA on CKD: Persistent. Improved marginally today, baseline 1.6-1.8 Nephro following, appreciate recs. #Achalasia: s/p botox injection on 06/01/2017. Stable. No recurrence of regurgitation and aspiration per patient. Tolerating advanced diet, with reported daily improvement. No likely surgical candidate based on prior cardiac surgery referral, and untreated severe . Will likely require continued outpatient GI mgt for this. continue PPI. #Anemia. Stable. MCV 96. Most likely secondary to hemoptysis. No other overt sources of blood loss outside of phlebotomy. No current evidence of erosion into large vessel, seems to be associated with infection only. Patient is a prior non-smoker, cannot rule out underlying pulmonary malignancy. B12 and folate are normal. Iron levels are acceptable, especially in the setting of severe illness with depressed TIBC. Reticulocyte count is appropriately raised. #Severe aortic stenosis: Prior cardiac surgeon determined the patient to high risk for open valve replacement, planning to be considered for TAVR as an outpatient. May significantly influence patient's ability to tolerate fluid shifts during this admission. #CHF. Mild. No clear evidence of exacerbation at this time. Holding home Lasix and setting of RADHA. Complicated by severe aortic stenosis as noted above. #Leukocytosis: Improving. Presumed secondary to pulmonary infection. #Other specified counseling -- The patient was seen for greater than 30 minutes. The patient was counseled for greater than 50% of this time regarding differential diagnosis, likely diagnosis, diagnostic and therapeutic alternatives, risks/benefits/alternatives of medications and procedures, and plan of care generally. The patient expressed understanding and wishes to proceed. Recommendations: -Pulmonary treatment per pulmonary Recs, with IV clindamycin, ceftriaxone, IV Solu-Medrol, duo nebs every 4 hours. Will wait for pulmonology to transition to oral medications when deemed appropriate. Smaller or crushable pills are preferred in this patient if possible, but should be able to tolerate pills with current full diet. -Trial off O2 today to see if patient tolerates, currently tolerating -Follow-up sputum and blood cultures. Drawn at least 48 hours after antibiotics initiated. -Continue Plavix, aspirin, Lipitor, Coreg. Continue to hold lisinopril and Lasix (discontinued 06/03/2017) for RADHA or CKD. -Continue to monitor hemoglobin and hemoptysis. -Continue diet as tolerated with known achalasia status post Botox injection -repeat labs in am -dispo pending reassessment by pulmonary today, O2 needs, and Dr. Akers assessment Monday. Shahrzad Vergara MD, M[facility] STAFF [employer] Current Visit: Yes Exam (Progress Note) - Constitutional Vitals: Period Temp Pulse Resp BP Sys/Rolle Pulse Ox Last 24 Hr 96.6 F-97.6 F 74-98 16-20 119-168/61-91 91-99 Results - Labs CBC & BMP: 06/04/17 04:05 06/05/17 02:53
--- NOTE | 2017-06-05 11:35 | Pulmonology Progress Note ---
Pulmonary - PN: Subj Interval history: This is an 87-year-old male with heart disease and achalasia. He had EGD2 days ago. He has had Botox injection. Since then he has been short of breath. He had an aspiration episode. He now has a fairly large left lower lung pneumonia. He is beginning to improve and he is more comfortable. He is on antibiotics.06/03/2017 chest x-ray shows normal size heart. There is extensive left upper lung left lower lung infiltrate infiltrates in the right upper lung and the medial posterior basal segment of the right lower lung. No positive cultures. Troponin is 0.316. Recent creatinine was 2.30 up from 1.60 this will be repeated. Last white count was 14,200. Patient feels like he is better. 06/04/2017. This patient is stable today. He has no new complaints. His chest is a little clearer and he is breathing fine. He was seen with a family member. Today's chest x-ray shows cardiomegaly is a right upper lung infiltrate and there is some perihilar interstitial scarring. There is an old scar at the left costophrenic angle. There are multiple areas of interstitial scarring in the right lower lung. These are old with calcifications. Electrolytes are normal. Creatinine is 2.1 with a BUN of 58. CBC is stable with a white blood cell count of 13,193 segs 06/05/2017. Patient's chest x-ray is quite a bit better. He has some top normal size heart. He has some benign calcifications of both hilar areas pulmonary arteries appear to be normal and the right lung is interstitial scarring inferior to the right hilum. I do not see infiltrates or pleural effusions. On the left side he has a resolving left upper lung and left lower lung infiltrate. There is minimal atelectasis at the left base. There are no positive cultures. Electrolytes are normal. Creatinine is 1.9 with a BUN of 56. Patient has had no recorded fever since 06/01/2017. He has no new requests today. Vital signs. See below. Patient is afebrile. Psychiatric. Appears to be oriented. General no distress Face. Symmetrical. No edema. Neck. Symmetrical no meningismus Chest. Mild to moderate bilateral lymph large airway congestion. This is improved quite a bit over the last 3 days. Heart no gallop Abdomen. Nondistended. Positive bowel sounds. Extremities. Nothing to suggest deep venous thrombophlebitis Neurologic. Cranial nerves are intact with decreased hearing acuity. Patient moves all 4 extremities. Sensory exam was not done in gait was not tested. The remainder the exam is noncontributory Plan. 06/03/2017. 1. Repeat chest x-ray, CBC, BMP and BNP 2. Continue present regimen. 06/04/2017 1. See today's note above. 2. Continue present regimen. 06/05/2017. 1. See today's note, above. 2. Continue present regimen 3. See chest x-ray 4. Dr. Downing will take over on 06/06/2017 Exam (Progress Note) - Constitutional Vitals: Period Temp Pulse Resp BP Sys/Rolle Pulse Ox Last 24 Hr 97.1 F-97.6 F 74-98 16-20 119-168/61-91 92-99 Results - Labs CBC & BMP: 06/04/17 04:05 06/05/17 02:53
[2017-06-05] MEDS: ENOXAPARIN 40 MG/0.4 ML SYRINGE SUBCUT SCH (14:21)
[2017-06-05] MEDS: MONTELUKAST 10 MG TABLET PO SCH (14:21)
--- NOTE | 2017-06-05 15:16 | Nephrology Progress Note ---
Nephrology - PN: Subj Interval history: Denies S OB. Less sputum production. No nausea Exam (PN)-Nephrology - Vital Signs Vital signs: Period Temp Pulse Resp BP Sys/Rolle Pulse Ox Last 24 Hr 96.7 F-97.6 F 74-98 16-20 119-168/61-91 90-98 Exam: Gen.: Alert and oriented x3. ENT: Pupils equal round reactive to light. EOMs intact. Mucous membranes moist. Neck: Supple. No JVD or bruit. Cardiovascular: Regular rate and rhythm. No murmur rub or gallop Lungs: Clear Abdomen: Soft. Nontender. Positive bowel sounds. No organomegaly Extremities: 1+ edema - Lab 06/04/17 04:05 06/05/17 02:53 Most recent lab results ABG pH 7.403 (7.35-7.45) 06/01/17 16:49 ABG pCO2 36.4 MM HG (35-48) 06/01/17 16:49 ABG pO2 64.8 MM HG (80-95) L 06/01/17 16:49 ABG HCO3 23.0 MMOL/L (20-26) 06/01/17 16:49 ABG O2 Saturation 91.7 % (95-100) L 06/01/17 16:49 Calcium 8.2 MG/DL (8.5-10.1) L 06/05/17 02:53 Magnesium 3.0 MG/DL (1.8-2.4) H 06/04/17 04:05 Assessment and Plan (1) Chronic renal insufficiency, stage III (moderate) Status: Chronic Assessment and plan: 87-year-old man with: * CRF 3. Baseline creatinine 1.8 * Acute worsening of chronic renal failure. Renal function improved. Approaching baseline * Pneumonia. Presumed secondary to aspiration. Improving with current treatment * CAD * Aortic stenosis * Achalasia Current Visit: No (2) Achalasia Status: Acute Current Visit: Yes (3) Bilateral pneumonia Status: Acute Current Visit: Yes (4) Aortic stenosis Problem details: 3+ Status: Chronic Current Visit: No (5) CAD (coronary artery disease) Status: Chronic Current Visit: No (6) Hypertension Status: Chronic Current Visit: No
[2017-06-05] MEDS: cefTRIAXone 1,000 MG in SODIUM CHLORIDE 0.9% 100 ML IV SCH (17:05)
[2017-06-05] MEDS: PRAMIPEXOLE 0.25 MG TABLET PO SCH (21:37)
[2017-06-06] MEDS: methylPREDNISolone SOD SUC 40 MG/1 ML VIAL IV SCH ×4 (00:18→21:05)
[2017-06-06] MEDS: CLINDAMYCIN INJ 600 MG in PREMIX 1 EACH IV SCH ×3 (00:22→14:21)
[2017-06-06] MEDS: ALBUTEROL/IPRATROPIUM 3 ML NEB RESP TX SCH ×7 (00:46→23:32)
[2017-06-06] MEDS: ONDANSETRON 4 MG/2 ML VIAL IV PRN (04:30)
[2017-06-06 05:36] LABS: Basophils % 0.2 % (0.0-0.8); Hematocrit 31.3 VOL% (42.0-52.0); Hemoglobin 10.4 GM/DL (14.0-18.0); Immature Granulocytes % 4.8 %; Lymphocytes # 0.4 10*3/uL (1.4-4.0); Lymphocytes % 3.9 % (21.2-54.2); Mean Corpuscular HGB Conc 33.2 GM/DL (32-36); Mean Corpuscular Hemoglobin 32 PG (27-34); Mean Corpuscular Volume 97.5 FL (87-102); Mean Platelet Volume 10.2 FL (9.6-12.0); Monocytes # 0.6 10*3/uL (0.11-0.8); Monocytes % 5.5 % (1.7-12.7); NRBC # 0.04 10*3/uL; Neutrophils # 8.9 10*3/uL (1.4-7.4); Neutrophils % 85.6 % (38.7-73.9); Platelet Count 181 T/CUMM (130-400); Red Blood Count 3.21 MC/CUMM (3.8-5.5); White Blood Count 10.4 T/CUMM (4-12)
[2017-06-06 06:13] LABS: Calcium 8.2 MG/DL (8.5-10.1); Osmolality,Calculated 295.5 MOS/KG (273-304); Potassium 5.2 MMOL/L (3.5-5.1)
[2017-06-06 06:27] LABS: Band Neutrophils 1 % (0-10); Hypochromasia 1+; Lymphocytes 7 % (20-55); Metamyelocytes 1 %; Segmented Neutrophils 84 % (50-85); Total Cells Counted 100
[2017-06-06 06:28] LABS: Microcytosis 1+; Ovalocytes Few; Platelet Estimate Adequate
--- NOTE | 2017-06-06 09:08 | Pulmonology Progress Note ---
Pulmonary - PN: Subj Interval history: The patient is an 87-year-old white man that has achalasia. He had an EGD with Botox injections yesterday. After that he had respiratory distress and is probably aspirated some. He has developed a left lung pneumonia. He has a history coronary artery disease and hypertension along with some valvular disease. Over the weekend he has done much better. He is still coughing up some sputum. He is not having any fever. He feels like his shortness of breath is much improved. He is eating and feels like his swallowing is better. His chest x-ray yesterday was much better. Overall he continues to do well. Exam (Progress Note) - Constitutional Vitals: Period Temp Pulse Resp BP Sys/Rolle Pulse Ox Last 24 Hr 96.7 F-97.7 F 78-90 18-20 137-163/71-90 90-99 Exam: General appearance: normal weight, he looks good and is sitting up eating breakfast. He is in no distress. - Head Head exam: Present: normal inspection, normocephalic - Eye Eye exam: Present: EOMI. Absent: scleral icterus Pupils: Present: JONELLE - ENT ENT exam: Present: normal exam - Neck Neck exam: Present: normal inspection. Absent: lymphadenopathy, thyromegaly - Respiratory Respiratory exam: Present: He has good air movement with only minimal crackles in the left chest. - Cardiovascular Cardiovascular exam: Present: regular rate and rhythm. He does have a systolic murmur at the apex. - GI/Abdominal GI/Abdominal exam: Present: soft. Absent: distended, organomegaly, tenderness - Extremities Exam Extremities exam: Absent: calf tenderness, edema, he has no signs of phlebitis. - Neurological Exam Neurological exam: Present: alert, he is moving everything okay. - Psychiatric Psychiatric exam: Present: He looks much more comfortable today. - Skin Skin exam: Present: warm, dry Results - Labs CBC & BMP: 06/06/17 04:50 06/06/17 04:50 - Diagnostic Findings Procedure: Chest x-ray: image reviewed by me, report reviewed by me (Chest x- ray yesterday was much improved with less infiltrate on the left.) Assessment and Plan (1) Achalasia Status: Acute Assessment and plan: The patient had an EGD with Botox injections today for achalasia. He has had difficulty swallowing and certainly could be aspirating. He is eating better and swallowing much better now. Current Visit: Yes (2) Stented coronary artery Status: Acute Assessment and plan: Patient has known coronary artery disease. Current Visit: No (3) LEESA (obstructive sleep apnea) Status: Chronic Assessment and plan: Patient uses CPAP at night. Current Visit: No (4) Hypertension Status: Chronic Assessment and plan: His blood pressure and heart rate are doing okay although his blood pressure is up now. Current Visit: No (5) Left lower lobe pneumonia Status: Acute Assessment and plan: The patient had a left lung pneumonia that is much better. Overall he continues to improve. He does have gram-negative rods on sputum. Current Visit: Yes Qualifiers: Pneumonia type: aspiration pneumonia
[2017-06-06] MEDS: ALLOPURINOL 100 MG TABLET PO SCH (09:56)
[2017-06-06] MEDS: PANTOPRAZOLE 40 MG TABLET PO SCH (09:56)
[2017-06-06] MEDS: ATORVASTATIN 10 MG TABLET PO SCH (09:56)
[2017-06-06] MEDS: CLOPIDOGREL 75 MG TABLET PO SCH (09:56)
[2017-06-06] MEDS: MONTELUKAST 10 MG TABLET PO SCH (09:56)
[2017-06-06] MEDS: CARVEDILOL 12.5 MG TABLET PO SCH ×2 (09:56→21:05)
[2017-06-06] MEDS: FINASTERIDE 5 MG TABLET PO SCH (09:56)
[2017-06-06] MEDS: GABAPENTIN 300 MG CAPSULE PO SCH ×2 (09:57→21:07)
[2017-06-06] MEDS: ASPIRIN EC 81 MG TABLET PO SCH (09:57)
--- NOTE | 2017-06-06 10:01 | Gastrointestinal Progress Note ---
<Kailyn Chavez - Last Filed: 06/06/17 09:59> Assessment and Plan (1) Dyspnea Status: Acute Assessment and plan: 06/06-shortness of breath is improved. Chest x-ray showing improvements. Tolerating regular diet with improvements in dysphagia. Continue to monitor present time. Plan an addendum to followed by Dr. Akers 06/02-improved shortness of breath with oxygen saturations improved as well. Chest x-ray today noted as below. Will start clear liquid diet and continue to monitor his dysphagia. Continue to monitor respiratory status today and if continues to improve can consider possibly transferring to floor later today. Plan an addendum to followed by Dr. Akers. 06/01-post EGD today for achalasia with Botox injection and esophageal lavage now with complaints of shortness of breath nausea saturations in the low 90s on CPAP. Admit for observation at this time and will consult pulmonary. Will transfer to ICU for observation overnight. Plan an addendum to follow Dr. Akers. Current Visit: Yes Gastroenterology - PN: Subj Interval history: CC: Achalasia, pneumonia Patient is seen, awake and alert sitting up in chair with at bedside. States he is not resting well since that his admission last week however his breathing is improving. He states his dysphagia is also improving and is tolerating his meals fairly well this time. Denies any abdominal pain, nausea vomiting. Dr. Santos is following in his chest x-ray on yesterday is showing improvements. He was noted to have gram-negative rods on his sputum culture. He is afebrile at this time and his oxygen saturations on average are in the mid 90s. Abdomen soft, nontender. ROS: Denies shortness breath chest pain Exam (Progress Note) - Constitutional Vitals: Period Temp Pulse Resp BP Sys/Rolle Pulse Ox Last 24 Hr 96.7 F-97.7 F 78-90 18-20 137-163/71-90 90-99 General appearance: normal weight, no acute distress - Head Head exam: Present: normal inspection, normocephalic - Eye Eye exam: Present: other (Lids and conjunctivae are unremarkable). Absent: scleral icterus - ENT ENT exam: Present: normal exam, normal oropharynx - Neck Neck exam: Present: normal inspection - Respiratory Respiratory exam: Present: clear to auscultation bilaterally. Absent: rales, rhonchi, wheezes - Cardiovascular Cardiovascular exam: Present: regular rate and rhythm. Absent: diastolic murmur , JVD, systolic murmur - GI/Abdominal GI/Abdominal exam: Present: normal bowel sounds, soft. Absent: ascites, distended, mass, organomegaly, tenderness - Extremities Exam Extremities exam: Present: normal inspection, full ROM - Back Exam Back exam: Present: normal inspection - Neurological Exam Neurological exam: Present: alert, oriented X3 - Psychiatric Psychiatric exam: Present: normal affect, normal mood - Skin Skin exam: Present: normal color, warm, dry Results - Labs CBC & BMP: 06/06/17 04:50 06/06/17 04:50 Lab Results: I have reviewed the past 24 hour labs <Peng Akers - Last Filed: 06/06/17 14:09> Exam (Progress Note) - Constitutional Vitals: Period Temp Pulse Resp BP Sys/Rolle Pulse Ox Last 24 Hr 97.2 F-97.7 F 78-90 18-20 137-167/71-90 90-99 Results - Labs CBC & BMP: 06/06/17 04:50 06/06/17 04:50
[2017-06-06] MEDS: ENOXAPARIN 40 MG/0.4 ML SYRINGE SUBCUT SCH (14:22)
[2017-06-06] MEDS: cefTRIAXone 1,000 MG in SODIUM CHLORIDE 0.9% 100 ML IV SCH (15:00)
[2017-06-06] MEDS ORDERED: ZOLPIDEM 5 MG TABLET PO PRN (20:56)
[2017-06-06] MEDS: PRAMIPEXOLE 0.25 MG TABLET PO SCH (21:05)
--- NOTE | 2017-06-06 21:39 | Nephrology Progress Note ---
Nephrology - PN: Subj Interval history: He feels better overall. He still has some sputum production but denies shortness of breath. Exam (PN)-Nephrology - Vital Signs Vital signs: Period Temp Pulse Resp BP Sys/Rolle Pulse Ox Last 24 Hr 97.2 F-97.7 F 78-90 16-20 161-167/79-90 91-100 Exam: ENT: Normal Cardiovascular: Regular rate and rhythm. No murmur rub or gallop Lungs: Clear Extremities: 1+ edema - Lab 06/06/17 04:50 06/06/17 04:50 Most recent lab results ABG pH 7.403 (7.35-7.45) 06/01/17 16:49 ABG pCO2 36.4 MM HG (35-48) 06/01/17 16:49 ABG pO2 64.8 MM HG (80-95) L 06/01/17 16:49 ABG HCO3 23.0 MMOL/L (20-26) 06/01/17 16:49 ABG O2 Saturation 91.7 % (95-100) L 06/01/17 16:49 Calcium 8.2 MG/DL (8.5-10.1) L 06/06/17 04:50 Magnesium 3.0 MG/DL (1.8-2.4) H 06/04/17 04:05 Assessment and Plan (1) Chronic renal insufficiency, stage III (moderate) Status: Chronic Assessment and plan: 87-year-old man with: * CRF 3. Baseline creatinine 1.8 * Acute worsening of chronic renal failure. Renal function improved. Approaching baseline * Pneumonia. Presumed secondary to aspiration. Improving with current treatment * CAD * Aortic stenosis * Achalasia Current Visit: No (2) Achalasia Status: Acute Current Visit: Yes (3) Bilateral pneumonia Status: Acute Current Visit: Yes (4) Aortic stenosis Problem details: 3+ Status: Chronic Current Visit: No (5) CAD (coronary artery disease) Status: Chronic Current Visit: No (6) Hypertension Status: Chronic Current Visit: No
[2017-06-07] MEDS: CLINDAMYCIN INJ 600 MG in PREMIX 1 EACH IV SCH ×2 (00:07→06:32)
[2017-06-07] MEDS: ALBUTEROL/IPRATROPIUM 3 ML NEB RESP TX SCH ×4 (04:00→15:27)
[2017-06-07 06:16] LABS: Calcium 8.9 MG/DL (8.5-10.1); Osmolality,Calculated 291.7 MOS/KG (273-304); Potassium 5.8 MMOL/L (3.5-5.1)
--- NOTE | 2017-06-07 08:38 | Pulmonology Progress Note ---
Pulmonary - PN: Subj Interval history: The patient is an 87-year-old white man that has achalasia. He had an EGD with Botox injections yesterday. After that he had respiratory distress and is probably aspirated some. He has developed a left lung pneumonia. He has a history coronary artery disease and hypertension along with some valvular disease. Over the weekend he has done much better. He is still coughing up some sputum. He is not having any fever. He says he had a good night again and is sitting up and moving around. He feels like his shortness of breath is better and his cough is better. He is not having any fever. He says he feels well enough to go home. He is eating well without any trouble swallowing now. Exam (Progress Note) - Constitutional Vitals: Period Temp Pulse Resp BP Sys/Rolle Pulse Ox Last 24 Hr 97.0 F-97.6 F 76-97 16-22 110-183/74-90 92-100 Exam: General appearance: normal weight, he looks good and is sitting up eating breakfast. He is eating well and no shortness of breath. - Head Head exam: Present: normal inspection, normocephalic - Eye Eye exam: Present: EOMI. Absent: scleral icterus Pupils: Present: JONELLE - ENT ENT exam: Present: normal exam - Neck Neck exam: Present: normal inspection. Absent: lymphadenopathy, thyromegaly - Respiratory Respiratory exam: Present: He has good air movement and his lungs sound better with no wheezing. He has minimal crackles in the left base. - Cardiovascular Cardiovascular exam: Present: regular rate and rhythm. He does have a systolic murmur at the apex. - GI/Abdominal GI/Abdominal exam: Present: soft. Absent: distended, organomegaly, tenderness - Extremities Exam Extremities exam: Absent: calf tenderness, edema, he has no signs of phlebitis. - Neurological Exam Neurological exam: Present: alert, he is moving everything okay. - Psychiatric Psychiatric exam: Present: He looks much more comfortable today. - Skin Skin exam: Present: warm, dry Results - Labs CBC & BMP: 06/06/17 04:50 06/07/17 04:44 Assessment and Plan (1) Achalasia Status: Acute Assessment and plan: The patient had an EGD with Botox injections for achalasia. He is swallowing much better now. Current Visit: Yes (2) Stented coronary artery Status: Acute Assessment and plan: Patient has known coronary artery disease. Current Visit: No (3) LEESA (obstructive sleep apnea) Status: Chronic Assessment and plan: Patient uses CPAP at night. He says he will use his machine at home. Current Visit: No (4) Hypertension Status: Chronic Assessment and plan: His blood pressure and heart rate are doing okay and he is tolerating his medicines. Current Visit: No (5) Left lower lobe pneumonia Status: Acute Assessment and plan: The patient had a left lung pneumonia that is much better. Overall he continues to improve. He does have gram-negative rods on sputum. The cultures have not turned out anything yet. Will change him to oral medications and he can go home. He can come back to the clinic for an x-ray. Current Visit: Yes Qualifiers: Pneumonia type: aspiration pneumonia
[2017-06-07] MEDS: FINASTERIDE 5 MG TABLET PO SCH (09:27)
[2017-06-07] MEDS: ALLOPURINOL 100 MG TABLET PO SCH (09:27)
[2017-06-07] MEDS: AMOXICILLIN/CLAV 875 MG TABLET PO SCH ×2 (09:27→18:40)
[2017-06-07] MEDS: ATORVASTATIN 10 MG TABLET PO SCH (09:27)
[2017-06-07] MEDS: MONTELUKAST 10 MG TABLET PO SCH (09:27)
[2017-06-07] MEDS: PANTOPRAZOLE 40 MG TABLET PO SCH (09:27)
[2017-06-07] MEDS: ASPIRIN EC 81 MG TABLET PO SCH (09:27)
[2017-06-07] MEDS: CARVEDILOL 12.5 MG TABLET PO SCH (09:27)
[2017-06-07] MEDS: CLOPIDOGREL 75 MG TABLET PO SCH (09:27)
[2017-06-07] MEDS: GABAPENTIN 300 MG CAPSULE PO SCH (09:27)
--- NOTE | 2017-06-07 09:53 | Discharge Summary ---
Hospital Course - Hospital Course Hospital Course: Mr. Bull was admitted on 06/01 following outpatient EGD for dysphagia and achalasia. He underwent EGD with Botox injection as well as esophageal lavage however following the procedure, he began having shortness of breath and dropping his oxygen saturations. He has a prior history of obstructive sleep apnea and sleeps with CPAP at home therefore he was admitted at that time for observation. Upon further workup, he was found to have aspiration pneumonia to the left lower lobe and was began on IV antibiotics bronchodilators and steroids. Patient has improved over the last several days and feels that his shortness of breath is now resolved. He is no longer febrile without leukocytosis. He is tolerating his diet well and denies any difficulty with his dysphagia at this time. Pt is noted to have elevated potassium at 5.8 without any associated symptoms. We will give one dose of Kayexelate and obtain an EKG. If hyperkalemia resolved this afternoon, we will plan to discharge home at that time. Patient has been seen by Dr. Santos this morning and he feels he is ready for discharge home and will follow him up in clinic with outpatient x-ray and he will be discharged home on oral antibiotics. . Diagnosis - Discharge Diagnosis (1) Dyspnea Status: Resolved Discharge Plan - Discharge Data Disposition: Disch To Home/Self Care Condition at Discharge: Stable Discharge Diet: advance to your usual diet Activity: resume usual activities as tolerated Hygiene: no restrictions Weight Bearing at Discharge: full weight bearing Driving: no restrictions Contact your physician if you experience:: fever over 101, Shortness of breath - Discharge Medications No Action Allopurinol 100 mg PO DAILY Carvedilol [Coreg] 12.5 mg PO BID Atorvastatin [Lipitor] 10 mg PO DAILY Omeprazole [Prilosec] 20 mg PO BEDTIME Aspirin EC Tab 81 mg PO DAILY tablet Nitroglycerin Sl Tab [Nitrostat] 0.4 mg SL Q5M PRN #25 tablet PRN Reason: Chest Pain Multivitamin/Iron/Folic Acid [Centrum Complete Multivit Tab] 1 each PO DAILY Finasteride 5 mg PO DAILY Lisinopril 20 mg PO DAILY Ferrous Sulfate 325 mg PO DAILY Clopidogrel [Plavix] 75 mg PO DAILY Pramipexole [Mirapex] 1 mg PO BEDTIME Gabapentin 300 mg PO BID Furosemide Tab [Lasix Tab] 20 mg PO DAILY - Follow Up or Referral - Forms/Instructions Exam - Constitutional Vitals: Period Temp Pulse Resp BP Sys/Rolle Pulse Ox Last 24 Hr 97.0 F-97.9 F 76-97 16-22 110-183/61-90 92-100 General appearance: normal weight, no acute distress - Head Head exam: Present: normal inspection, normocephalic - Eye Eye exam: Present: other (Lids and conjunctive are unremarkable). Absent: scleral icterus - ENT ENT exam: Present: normal exam, normal oropharynx - Neck Neck exam: Present: normal inspection - Respiratory Respiratory exam: Present: clear to auscultation bilaterally. Absent: rales, rhonchi, wheezes - Cardiovascular Cardiovascular exam: Present: regular rate and rhythm. Absent: diastolic murmur , JVD, systolic murmur - GI/Abdominal GI/Abdominal exam: Present: normal bowel sounds, soft. Absent: ascites, distended, mass, organomegaly, tenderness - Extremities Exam Extremities exam: Present: normal inspection, full ROM - Back Exam Back exam: Present: normal inspection - Neurological Exam Neurological exam: Present: alert, oriented X3 - Psychiatric Psychiatric exam: Present: normal affect, normal mood - Skin Skin exam: Present: normal color, warm, dry Discharge Results Procedures and tests throughout hospitalization: Pending Orders 06/03/17 20:21 Blood Culture Routine 06/07/17 04:54 Occult Blood, Stool Routine 06/08/17 04:00 Basic Metabolic Panel IN AM 06/09/17 04:00 Basic Metabolic Panel IN AM 06/10/17 04:00 Basic Metabolic Panel IN AM Labs on day of discharge: Labs from last 24 hours 06/07/17 06/07/17 06/04/17 16:47 04:44 04:05 Sodium 138 Potassium 5.2 H 5.8 H Chloride 101 Carbon Dioxide 29 Anion Gap 13.8 BUN 58 H Creatinine 1.70 H GFR Calculation 45 BUN/Creatinine Ratio 34.00 H Glucose 114 H Calculated Osmolality 291.7 Calcium 8.9 TSH, Ultra Sensitive 0.2 L Preliminary micro results at discharge 06/03/17 20:21 Blood Culture - Preliminary Blood No growth at 3 days 06/03/17 20:21 Blood Culture - Preliminary Blood No growth at 3 days DS: Provider Date of admission: 06/02/17 08:51 Primary care physician: John Lopez MD Attending physician on admission: Peng Fields Consults: 06/01/17 14:14 Consult to Physician [CONS] Routine Comment: Shortness of breath post EGD, low sats Consulting Provider: Trevon Santos Consult Notification Comment: md aware 06/03/17 19:19 Consult to Physician [CONS] Routine Comment: Consulting Provider: Primo Ruth Consult to Specialist Group: Hospitalist Person Notified: md morales Date Notified: 06/03/17 06/03/17 21:02 Consult to Speech Therapy [CONS] Routine Reason for Speech Therapy: Evaluate and Treat 06/04/17 13:06 Consult to Physician [CONS] Routine Comment: elevated creatinine Consulting Provider: Jake Xiong Consult to Specialist Group: Nephrology When should Consulting Provider be notified: Now Person Notified: MD morales Discharging clinician: Keira Delgado Expected date of discharge: 06/07/17
[2017-06-07] MEDS ORDERED: SODIUM POLYSTYRENE SULFATE 15 GM/60 ML BOTTLE PO STA (13:34)
--- NOTE | 2017-06-07 14:53 | EKG Report ---
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
[2017-06-07] MEDS: ENOXAPARIN 40 MG/0.4 ML SYRINGE SUBCUT SCH (15:02)
[2017-06-07 17:10] VITALS: BP 160/75
--- NOTE | 2017-06-07 19:11 | Nephrology Progress Note ---
Nephrology - PN: Subj Interval history: No shortness of breath or GI symptoms. Exam (PN)-Nephrology - Vital Signs Vital signs: Period Temp Pulse Resp BP Sys/Rolle Pulse Ox Last 24 Hr 97.0 F-97.9 F 76-88 16-20 110-183/61-88 92-100 Exam: ENT: Normal Cardiovascular: Regular rate and rhythm. No murmur rub or gallop Lungs: Clear Extremities: Trace edema - Lab 06/06/17 04:50 06/07/17 16:47 Most recent lab results ABG pH 7.403 (7.35-7.45) 06/01/17 16:49 ABG pCO2 36.4 MM HG (35-48) 06/01/17 16:49 ABG pO2 64.8 MM HG (80-95) L 06/01/17 16:49 ABG HCO3 23.0 MMOL/L (20-26) 06/01/17 16:49 ABG O2 Saturation 91.7 % (95-100) L 06/01/17 16:49 Calcium 8.9 MG/DL (8.5-10.1) 06/07/17 04:44 Magnesium 3.0 MG/DL (1.8-2.4) H 06/04/17 04:05 Assessment and Plan (1) Chronic renal insufficiency, stage III (moderate) Status: Chronic Assessment and plan: 87-year-old man with: * CRF 3. Baseline creatinine 1.8 * Acute worsening of chronic renal failure. Renal function back to baseline * Pneumonia. Presumed secondary to aspiration. Improving with current treatment * CAD * Aortic stenosis * Achalasia Current Visit: No (2) Achalasia Status: Acute Current Visit: Yes (3) Bilateral pneumonia Status: Acute Current Visit: Yes (4) Aortic stenosis Problem details: 3+ Status: Chronic Current Visit: No (5) CAD (coronary artery disease) Status: Chronic Current Visit: No (6) Hypertension Status: Chronic Current Visit: No Specialty Discharge - Follow Up or Referrals
== END 2017-06-07 19:00 | disposition home or self-care (01) | DRG 178 ==
LOC: N.GILAB 10:07 → N.CC 10:07 → N.5E 06-02 15:26
PROVIDERS: ADMIT Internal Medicine Gastroenterology; ATTEND Internal Medicine Gastroenterology

== ENCOUNTER 2018-08-27 10:53 | Inpatient (IN) ==
[2018-08-27] MEDS ORDERED: MORPHINE 4 MG/1 ML VIAL IV STA (11:38)
[2018-08-27] MEDS ORDERED: ONDANSETRON 4 MG/2 ML VIAL IV STA (11:38)
[2018-08-27] MEDS ORDERED: ASPIRIN 325 MG TABLET PO STA (11:38)
[2018-08-27] MEDS ORDERED: NITROGLYCERIN 2% OINT 1 INCH/GM PACK TOP STA (11:38)
[2018-08-27 11:45] LABS: Basophils % 0.5 % (0.0-0.8); Eosinophils # 0.4 10*3/uL (0.0-0.87); Eosinophils % 7.4 % (0.00-10.9); Immature Granulocytes Absolute 0.06 #; Lymphocytes % 16.6 % (21.2-54.2); Mean Corpuscular HGB Conc 30.8 GM/DL (32-36); Mean Corpuscular Hemoglobin 33 PG (27-34); Mean Corpuscular Volume 106.1 FL (87-102); Mean Platelet Volume 9.7 FL (9.6-12.0); Monocytes # 0.7 10*3/uL (0.11-0.8); NRBC # 0.02 10*3/uL; Neutrophils # 3.6 10*3/uL (1.4-7.4); Neutrophils % 62.5 % (38.7-73.9); Platelet Count 179 T/CUMM (130-400); Red Blood Count 2.45 MC/CUMM (3.8-5.5); Red Cell Distribution Width 17.2 % (9.3-17.3); White Blood Count 5.8 T/CUMM (4-12)
[2018-08-27 12:05] LABS: Albumin 3.5 G/DL (3.4-5.0); Bilirubin,Total 0.5 MG/DL (0.2-1.0); Calcium 8.6 MG/DL (8.5-10.1); Osmolality,Calculated 294.4 MOS/KG (273-304); Potassium 4.4 MMOL/L (3.5-5.1); Total Protein 6.5 G/DL (6.4-8.3)
[2018-08-27] MEDS ORDERED: ENOXAPARIN 40 MG/0.4 ML SYRINGE SUBCUT STA (12:19)
[2018-08-27] MEDS ORDERED: MAGNESIUM SULF RIDER 2 GM in PREMIX 1 EACH IV PRN (12:53)
[2018-08-27] MEDS ORDERED: POTASSIUM CHLORIDE 20 MEQ TABLET PO PRN (12:53)
[2018-08-27] MEDS ORDERED: DOCUSATE SODIUM 100 MG CAPSULE PO PRN (12:53)
[2018-08-27] MEDS ORDERED: PROMETHAZINE 25 MG TABLET PO PRN (12:53)
[2018-08-27] MEDS ORDERED: ONDANSETRON 4 MG/2 ML VIAL IV PRN (12:53)
[2018-08-27] MEDS ORDERED: ACETAMINOPHEN 325 MG TABLET PO PRN (12:53)
[2018-08-27] MEDS ORDERED: BISACODYL 5 MG TABLET PO PRN (12:53)
[2018-08-27] MEDS ORDERED: guaiFENesin/DM ER 600-30 MG TABLET PO PRN (12:53)
[2018-08-27] MEDS ORDERED: MAGNESIUM SULF RIDER 4 GM in PREMIX 1 EACH IV PRN (12:53)
[2018-08-27] MEDS ORDERED: ZALEPLON 5 MG CAPSULE PO PRN (12:53)
[2018-08-27] MEDS ORDERED: LACTULOSE 20 GM/30 ML UDCUP PO PRN (12:53)
[2018-08-27 14:12] LABS: Risk Ratio 3.34; Thyroid Stimulating Hormone 2.18 uIU/ml (0.358-3.74)
[2018-08-27] MEDS ORDERED: NITROGLYCERIN SL 0.4 MG TABLET SL PRN (14:50)
[2018-08-27] MEDS ORDERED: MORPHINE 4 MG/1 ML VIAL IV PRN (14:50)
[2018-08-27] MEDS: ACETAMINOPHEN 325 MG TABLET PO SCH ×2 (15:22→21:47)
[2018-08-27] MEDS: ISOSORBIDE MONONITRATE 30 MG TABLET PO SCH (15:22)
[2018-08-27] MEDS: SODIUM CHLORIDE 0.9% 1,000 ML IV SCH (15:22)
[2018-08-27] MEDS: GABAPENTIN 600 MG TABLET PO SCH ×2 (15:22→21:47)
[2018-08-27] MEDS: traMADol 50 MG TABLET PO SCH ×2 (15:22→21:47)
[2018-08-27 16:26] LABS: Folate > 24.0 NG/ML (5.4-24.0); Vitamin B12 1460 PG/ML (211-911)
[2018-08-27] MEDS ORDERED: diphenhydrAMINE CAP 25 MG CAPSULE PO PRN (17:21)
[2018-08-27] MEDS: PANTOPRAZOLE 40 MG TABLET PO SCH (21:47)
[2018-08-27] MEDS: CARVEDILOL 25 MG TABLET PO SCH (21:48)
[2018-08-28] MEDS: SODIUM CHLORIDE 0.9% 1,000 ML IV SCH (03:28)
[2018-08-28 05:03] LABS: Basophils % 0.4 % (0.0-0.8); Eosinophils # 0.5 10*3/uL (0.0-0.87); Eosinophils % 9.2 % (0.00-10.9); Hematocrit 21.8 VOL% (42.0-52.0); Hemoglobin 6.5 GM/DL (14.0-18.0); Immature Granulocytes % 0.6 %; Immature Granulocytes Absolute 0.03 #; Lymphocytes # 0.9 10*3/uL (1.4-4.0); Lymphocytes % 17.7 % (21.2-54.2); Mean Corpuscular HGB Conc 29.8 GM/DL (32-36); Mean Corpuscular Hemoglobin 32 PG (27-34); Mean Corpuscular Volume 107.9 FL (87-102); Mean Platelet Volume 9.4 FL (9.6-12.0); Monocytes # 0.6 10*3/uL (0.11-0.8); Monocytes % 12.1 % (1.7-12.7); NRBC # 0.02 10*3/uL; Neutrophils # 3.1 10*3/uL (1.4-7.4); Platelet Count 135 T/CUMM (130-400); Red Blood Count 2.02 MC/CUMM (3.8-5.5); Red Cell Distribution Width 17.2 % (9.3-17.3); White Blood Count 5.2 T/CUMM (4-12)
[2018-08-28 05:25] LABS: Calcium 8.2 MG/DL (8.5-10.1); Osmolality,Calculated 294.4 MOS/KG (273-304)
[2018-08-28 05:26] LABS: Calcium 8.1 MG/DL (8.5-10.1); Osmolality,Calculated 294.3 MOS/KG (273-304)
[2018-08-28] MEDS ORDERED: FUROSEMIDE 40 MG/4 ML VIAL IV ONE ×4 (07:19→21:00)
[2018-08-28] MEDS: ASPIRIN EC 81 MG TABLET PO SCH (08:25)
[2018-08-28] MEDS: MULTIVITAMIN (CENTRUM) TABLET PO SCH (08:25)
[2018-08-28] MEDS: CARVEDILOL 25 MG TABLET PO SCH ×2 (08:25→22:03)
[2018-08-28] MEDS: ACETAMINOPHEN 325 MG TABLET PO SCH (08:26)
[2018-08-28] MEDS: ATORVASTATIN 10 MG TABLET PO SCH (08:26)
[2018-08-28] MEDS: FINASTERIDE 5 MG TABLET PO SCH (08:26)
[2018-08-28] MEDS: ISOSORBIDE MONONITRATE 30 MG TABLET PO SCH (08:26)
[2018-08-28] MEDS: traMADol 50 MG TABLET PO SCH ×2 (08:26→21:47)
[2018-08-28] MEDS: GABAPENTIN 600 MG TABLET PO SCH ×3 (08:26→21:47)
[2018-08-28] MEDS: ALLOPURINOL 100 MG TABLET PO SCH (08:27)
[2018-08-28 09:00] LABS: % Iron Saturation 14.1 % (18-50); Ferritin 49.4 ng/ml (26-388)
[2018-08-28] MEDS ORDERED: CLOPIDOGREL 75 MG TABLET PO SCH (09:00)
[2018-08-28] MEDS ORDERED: PANTOPRAZOLE 40 MG TABLET PO SCH (09:00)
[2018-08-28] MEDS ORDERED: LISINOPRIL 20 MG TABLET PO SCH (09:00)
[2018-08-28] MEDS ORDERED: FERROUS SULFATE 325 MG TABLET PO SCH (09:00)
[2018-08-28] MEDS ORDERED: FUROSEMIDE 40 MG TABLET PO SCH (09:00)
[2018-08-28] MEDS ORDERED: LIDOCAINE 100 MG/5 ML SYRINGE ONE (10:00)
[2018-08-28] MEDS ORDERED: PROPOFOL 200 MG/20 ML VIAL IV ONE (10:00)
[2018-08-28] MEDS ORDERED: ETOMIDATE 20 MG/10 ML VIAL IV ONE (10:00)
[2018-08-28] MEDS ORDERED: ENOXAPARIN 30 MG/0.3 ML SYRINGE SUBCUT SCH (12:00)
[2018-08-28] MEDS: FERROUS SULFATE 325 MG TABLET PO SCH ×2 (15:34→21:46)
[2018-08-28 15:58] LABS: Basophils # 0.1 10*3/uL (0.0-0.2); Basophils % 0.7 % (0.0-0.8); Eosinophils # 0.7 10*3/uL (0.0-0.87); Eosinophils % 9.6 % (0.00-10.9); Hematocrit 31.9 VOL% (42.0-52.0); Hemoglobin 9.9 GM/DL (14.0-18.0); Immature Granulocytes % 0.7 %; Immature Granulocytes Absolute 0.05 #; Lymphocytes # 0.9 10*3/uL (1.4-4.0); Lymphocytes % 12.2 % (21.2-54.2); Mean Corpuscular Hemoglobin 32 PG (27-34); Mean Corpuscular Volume 104.2 FL (87-102); Mean Platelet Volume 9.9 FL (9.6-12.0); Monocytes # 0.5 10*3/uL (0.11-0.8); Monocytes % 7.1 % (1.7-12.7); NRBC # 0.03 10*3/uL; Neutrophils # 5.1 10*3/uL (1.4-7.4); Neutrophils % 69.7 % (38.7-73.9); Platelet Count 176 T/CUMM (130-400); Red Blood Count 3.06 MC/CUMM (3.8-5.5); White Blood Count 7.3 T/CUMM (4-12)
[2018-08-28 16:30] LABS: Folate > 24.0 NG/ML (5.4-24.0); Vitamin B12 982 PG/ML (211-911)
[2018-08-28] MEDS ORDERED: FUROSEMIDE 40 MG/4 ML VIAL ONE (17:06)
[2018-08-28 17:22] LABS: Sedimentation Rate-Westergren 36 MM/HR (0-20)
[2018-08-28] MEDS ORDERED: ALBUTEROL/IPRATROPIUM 3 ML NEB RESP TX ONE (17:27)
[2018-08-28] MEDS ORDERED: ALBUTEROL/IPRATROPIUM 3 ML NEB RESP TX PRN (17:27)
[2018-08-28] MEDS ORDERED: LEVOFLOXACIN INJ 500 MG in PREMIX 1 EACH IV ONE (17:56)
[2018-08-28] MEDS ORDERED: MORPHINE 4 MG/1 ML VIAL IV ONE (18:44)
[2018-08-28] MEDS: NITROGLYCERIN 2% OINT 1 INCH/GM PACK TOP SCH (18:51)
[2018-08-28 20:09] LABS: Apearance,Urine CLEAR (Clear); Bacteria,Urine Occasional /HPF (Few); Bilirubin,Urine Negative (Negative); Blood, Urine Small mg/dL (Negative); Glucose,Urine (UA) Negative (Negative); Hyaline Casts,Urine 3 /LPF (0-3); Ketones,Urine Negative (Negative); Mucus,Urine Occasional /LPF (Occasional); Nitrite,Urine Negative (Negative); Protein,Urine Negative; RBC,Urine 6 /HPF (0-4); Squamous Epithelial Cell,Urine Occasional /HPF (0-10); Urine Color Straw (Yellow); Urine Specific Gravity 1.006 (1.001-1.035); Urine Urobilinogen < 2.0 EU/DL (0.2-1.0); WBC,Urine 1 /HPF (0-6)
[2018-08-28] MEDS: PHENYLEPHRINE DRIP 40 MG/250 ML PREMIX IV PRN (21:24)
[2018-08-28] MEDS: DOCUSATE SODIUM 100 MG CAPSULE PO SCH (21:46)
[2018-08-28] MEDS: PANTOPRAZOLE 40 MG TABLET PO SCH (21:46)
[2018-08-28] MEDS: ALBUTEROL/IPRATROPIUM 3 ML NEB RESP TX SCH (22:35)
[2018-08-29] MEDS: NITROGLYCERIN 2% OINT 1 INCH/GM PACK TOP SCH ×5 (01:07→23:44)
[2018-08-29] MEDS: ALBUTEROL/IPRATROPIUM 3 ML NEB RESP TX SCH ×6 (02:32→23:36)
[2018-08-29 04:45] LABS: Basophils # 0.1 10*3/uL (0.0-0.2); Basophils % 0.3 % (0.0-0.8); Eosinophils # 0.2 10*3/uL (0.0-0.87); Eosinophils % 0.6 % (0.00-10.9); Hematocrit 30.5 VOL% (42.0-52.0); Hemoglobin 9.7 GM/DL (14.0-18.0); Immature Granulocytes % 0.7 %; Immature Granulocytes Absolute 0.17 #; Lymphocytes # 0.8 10*3/uL (1.4-4.0); Lymphocytes % 3.4 % (21.2-54.2); Mean Corpuscular HGB Conc 31.8 GM/DL (32-36); Mean Corpuscular Hemoglobin 32 PG (27-34); Mean Corpuscular Volume 100.7 FL (87-102); Mean Platelet Volume 9.2 FL (9.6-12.0); Monocytes # 1.8 10*3/uL (0.11-0.8); Monocytes % 7.7 % (1.7-12.7); NRBC # 0.04 10*3/uL; Neutrophils # 20.2 10*3/uL (1.4-7.4); Neutrophils % 87.3 % (38.7-73.9); Platelet Count 219 T/CUMM (130-400); Red Blood Count 3.03 MC/CUMM (3.8-5.5); Red Cell Distribution Width 18.4 % (9.3-17.3); White Blood Count 23.2 T/CUMM (4-12)
[2018-08-29 05:08] LABS: Calcium 8.1 MG/DL (8.5-10.1); Osmolality,Calculated 293.7 MOS/KG (273-304); Potassium 4.7 MMOL/L (3.5-5.1)
[2018-08-29 05:29] LABS: Band Neutrophils 5 % (0-10); Hypochromasia 1+; Lymphocytes 3 % (20-55); Ovalocytes Slight; Platelet Estimate Adequate; Segmented Neutrophils 85 % (50-85); Total Cells Counted 100
[2018-08-29] MEDS: PHENYLEPHRINE DRIP 40 MG/250 ML PREMIX IV PRN ×2 (07:22→14:10)
[2018-08-29] MEDS ORDERED: FUROSEMIDE 40 MG/4 ML VIAL IV SCH (08:00)
[2018-08-29] MEDS: POLYETHYLENE GLYCOL POWDER 17 GM PACK PO SCH (08:33)
[2018-08-29] MEDS: ALLOPURINOL 100 MG TABLET PO SCH (08:33)
[2018-08-29] MEDS: traMADol 50 MG TABLET PO SCH ×2 (08:33→21:08)
[2018-08-29] MEDS: ATORVASTATIN 10 MG TABLET PO SCH (08:33)
[2018-08-29] MEDS: FINASTERIDE 5 MG TABLET PO SCH (08:33)
[2018-08-29] MEDS: MULTIVITAMIN (CENTRUM) TABLET PO SCH (08:33)
[2018-08-29] MEDS: ASPIRIN EC 81 MG TABLET PO SCH (08:33)
[2018-08-29] MEDS: LISINOPRIL 10 MG TABLET PO SCH (08:33)
[2018-08-29] MEDS: FERROUS SULFATE 325 MG TABLET PO SCH ×3 (08:33→21:08)
[2018-08-29] MEDS: GABAPENTIN 600 MG TABLET PO SCH ×3 (08:33→21:07)
[2018-08-29] MEDS: DOCUSATE SODIUM 100 MG CAPSULE PO SCH ×2 (08:34→21:07)
[2018-08-29] MEDS: CARVEDILOL 25 MG TABLET PO SCH ×2 (08:34→21:08)
[2018-08-29] MEDS: methylPREDNISolone SOD SUC 40 MG/1 ML VIAL IV SCH ×3 (09:58→21:09)
[2018-08-29] MEDS: PIPERACILLIN/TAZOBACTAM 3,375 MG in SODIUM CHLORIDE 0.9% 100 ML IV SCH ×2 (09:58→17:48)
[2018-08-29] MEDS: FUROSEMIDE 40 MG/4 ML VIAL IV SCH (16:43)
[2018-08-29] MEDS: LEVOFLOXACIN 250 MG TABLET PO SCH (17:48)
[2018-08-29] MEDS ORDERED: LEVOFLOXACIN INJ 250 MG in PREMIX 1 EACH IV SCH (18:00)
[2018-08-29] MEDS: PANTOPRAZOLE 40 MG TABLET PO SCH (21:08)
[2018-08-30] MEDS: PIPERACILLIN/TAZOBACTAM 3,375 MG in SODIUM CHLORIDE 0.9% 100 ML IV SCH ×3 (02:11→18:13)
[2018-08-30] MEDS: ALBUTEROL/IPRATROPIUM 3 ML NEB RESP TX SCH ×5 (02:59→19:32)
[2018-08-30] MEDS: methylPREDNISolone SOD SUC 40 MG/1 ML VIAL IV SCH ×5 (03:16→21:25)
[2018-08-30 04:28] LABS: Basophils % 0.1 % (0.0-0.8); Hematocrit 28.9 VOL% (42.0-52.0); Immature Granulocytes % 0.7 %; Immature Granulocytes Absolute 0.06 #; Lymphocytes # 0.5 10*3/uL (1.4-4.0); Mean Corpuscular HGB Conc 31.1 GM/DL (32-36); Mean Corpuscular Hemoglobin 32 PG (27-34); Mean Platelet Volume 10.1 FL (9.6-12.0); Monocytes # 0.2 10*3/uL (0.11-0.8); Monocytes % 1.7 % (1.7-12.7); Neutrophils # 8.5 10*3/uL (1.4-7.4); Neutrophils % 92.5 % (38.7-73.9); Platelet Count 154 T/CUMM (130-400); Red Blood Count 2.86 MC/CUMM (3.8-5.5); Red Cell Distribution Width 17.5 % (9.3-17.3); White Blood Count 9.2 T/CUMM (4-12)
[2018-08-30 04:51] LABS: Calcium 8.4 MG/DL (8.5-10.1); Osmolality,Calculated 293.8 MOS/KG (273-304); Potassium 4.4 MMOL/L (3.5-5.1)
[2018-08-30 05:02] LABS: Lymphocytes 2 % (20-55); Segmented Neutrophils 98 % (50-85); Total Cells Counted 100
[2018-08-30 05:03] LABS: Platelet Estimate Adequate; Polychromasia Few
[2018-08-30] MEDS: NITROGLYCERIN 2% OINT 1 INCH/GM PACK TOP SCH (05:53)
[2018-08-30] MEDS: MULTIVITAMIN (CENTRUM) TABLET PO SCH (09:37)
[2018-08-30] MEDS: ASPIRIN EC 81 MG TABLET PO SCH (09:37)
[2018-08-30] MEDS: GABAPENTIN 600 MG TABLET PO SCH ×3 (09:37→21:25)
[2018-08-30] MEDS: traMADol 50 MG TABLET PO SCH ×2 (09:37→21:25)
[2018-08-30] MEDS: CARVEDILOL 25 MG TABLET PO SCH ×2 (09:37→21:27)
[2018-08-30] MEDS: FERROUS SULFATE 325 MG TABLET PO SCH ×3 (09:38→21:26)
[2018-08-30] MEDS: ATORVASTATIN 10 MG TABLET PO SCH (09:38)
[2018-08-30] MEDS: POLYETHYLENE GLYCOL POWDER 17 GM PACK PO SCH (09:38)
[2018-08-30] MEDS: DOCUSATE SODIUM 100 MG CAPSULE PO SCH ×2 (09:38→21:25)
[2018-08-30] MEDS: FINASTERIDE 5 MG TABLET PO SCH (09:38)
[2018-08-30] MEDS: FUROSEMIDE 40 MG/4 ML VIAL IV SCH (09:39)
[2018-08-30] MEDS: ALLOPURINOL 100 MG TABLET PO SCH (09:44)
[2018-08-30] MEDS: LISINOPRIL 10 MG TABLET PO SCH (09:59)
[2018-08-30 10:08] LABS: Hemoglobin A1 (Alkaline) 97.7 % (96.5-98.5); Hemoglobin A2 (Alkaline) 2.3 % (1.5-3.5)
[2018-08-30] MEDS: FUROSEMIDE 40 MG TABLET PO SCH (15:40)
[2018-08-30] MEDS: LEVOFLOXACIN 250 MG TABLET PO SCH (18:13)
[2018-08-30] MEDS: PANTOPRAZOLE 40 MG TABLET PO SCH (21:27)
[2018-08-31] MEDS: ALBUTEROL/IPRATROPIUM 3 ML NEB RESP TX SCH ×4 (00:01→10:52)
[2018-08-31] MEDS: PIPERACILLIN/TAZOBACTAM 3,375 MG in SODIUM CHLORIDE 0.9% 100 ML IV SCH (03:01)
[2018-08-31] MEDS: methylPREDNISolone SOD SUC 40 MG/1 ML VIAL IV SCH (03:14)
[2018-08-31 05:08] LABS: Basophils % 0.1 % (0.0-0.8); Hematocrit 28.2 VOL% (42.0-52.0); Hemoglobin 9.2 GM/DL (14.0-18.0); Immature Granulocytes % 0.8 %; Immature Granulocytes Absolute 0.08 #; Lymphocytes # 0.3 10*3/uL (1.4-4.0); Lymphocytes % 3.1 % (21.2-54.2); Mean Corpuscular HGB Conc 32.6 GM/DL (32-36); Mean Corpuscular Hemoglobin 33 PG (27-34); Mean Corpuscular Volume 99.6 FL (87-102); Mean Platelet Volume 10.2 FL (9.6-12.0); Monocytes # 0.5 10*3/uL (0.11-0.8); Monocytes % 4.8 % (1.7-12.7); Neutrophils # 9.3 10*3/uL (1.4-7.4); Neutrophils % 91.2 % (38.7-73.9); Platelet Count 168 T/CUMM (130-400); Red Blood Count 2.83 MC/CUMM (3.8-5.5); Red Cell Distribution Width 17.1 % (9.3-17.3); White Blood Count 10.2 T/CUMM (4-12)
[2018-08-31 06:02] LABS: Calcium 8.2 MG/DL (8.5-10.1); Osmolality,Calculated 297.7 MOS/KG (273-304); Potassium 3.5 MMOL/L (3.5-5.1)
[2018-08-31 07:17] LABS: Hypochromasia 1+; Lymphocytes 5 % (20-55); Ovalocytes Slight; Platelet Estimate Normal; Segmented Neutrophils 93 % (50-85); Total Cells Counted 100
[2018-08-31] MEDS ORDERED: ISOSORBIDE MONONITRATE 30 MG TABLET PO SCH (09:00)
[2018-08-31] MEDS ORDERED: CARVEDILOL 25 MG TABLET PO SCH (09:54)
[2018-08-31] MEDS ORDERED: predniSONE 20 MG TABLET PO SCH (10:00)
[2018-08-31] MEDS ORDERED: AMOXICILLIN/CLAV 875 MG TABLET PO SCH (10:00)
[2018-08-31] MEDS: POLYETHYLENE GLYCOL POWDER 17 GM PACK PO SCH (10:50)
[2018-08-31] MEDS: ASPIRIN EC 81 MG TABLET PO SCH (10:52)
[2018-08-31] MEDS: traMADol 50 MG TABLET PO SCH (10:52)
[2018-08-31] MEDS: FUROSEMIDE 40 MG TABLET PO SCH (10:53)
[2018-08-31] MEDS: ALLOPURINOL 100 MG TABLET PO SCH (10:53)
[2018-08-31] MEDS: FERROUS SULFATE 325 MG TABLET PO SCH (10:53)
[2018-08-31] MEDS: DOCUSATE SODIUM 100 MG CAPSULE PO SCH (10:54)
[2018-08-31] MEDS: MULTIVITAMIN (CENTRUM) TABLET PO SCH (10:54)
[2018-08-31] MEDS: FINASTERIDE 5 MG TABLET PO SCH (10:54)
[2018-08-31] MEDS: GABAPENTIN 600 MG TABLET PO SCH (10:59)
[2018-08-31] MEDS: ATORVASTATIN 10 MG TABLET PO SCH (10:59)
[2018-08-31 12:58] VITALS: BP 150/69
[2018-08-31] MEDS ORDERED: SERTRALINE 25 MG TABLET PO SCH (21:00)
[2018-09-01] MEDS ORDERED: FUROSEMIDE 40 MG TABLET PO SCH (09:00)
== END 2018-08-31 15:20 | disposition home health service (06) | DRG 811 ==
LOC: EDUNIT# → N.ED 10:53 → N.EDINP 12:53 → N.2W 13:30 → N.TELEN 14:56 → N.ICU 08-28 17:46 → N.TELES 08-30 11:29
PROVIDERS: ADMIT Internal Medicine Cardiovascular Disease; ATTEND Internal Medicine Cardiovascular Disease

== ENCOUNTER 2018-12-30 07:12 | Inpatient (IN) ==
[2018-12-30 08:06] LABS: Basophils % 0.6 % (0.0-0.8); Eosinophils # 0.2 10*3/uL (0.0-0.87); Eosinophils % 2.9 % (0.00-10.9); Hematocrit 42.2 VOL% (42.0-52.0); Hemoglobin 13.2 GM/DL (14.0-18.0); Immature Granulocytes % 0.3 %; Immature Granulocytes Absolute 0.02 #; Lymphocytes # 0.7 10*3/uL (1.4-4.0); Lymphocytes % 11.6 % (21.2-54.2); Mean Corpuscular HGB Conc 31.3 GM/DL (32-36); Mean Corpuscular Hemoglobin 31 PG (27-34); Mean Corpuscular Volume 100.2 FL (87-102); Mean Platelet Volume 10.2 FL (9.6-12.0); Monocytes # 0.6 10*3/uL (0.11-0.8); Monocytes % 8.9 % (1.7-12.7); Neutrophils # 4.8 10*3/uL (1.4-7.4); Neutrophils % 75.7 % (38.7-73.9); Platelet Count 192 T/CUMM (130-400); Red Blood Count 4.21 MC/CUMM (3.8-5.5); Red Cell Distribution Width 14.8 % (9.3-17.3); White Blood Count 6.3 T/CUMM (4-12)
[2018-12-30 08:11] LABS: Albumin 3.5 G/DL (3.4-5.0); Bilirubin,Total 0.8 MG/DL (0.2-1.0); Calcium 9.1 MG/DL (8.5-10.1); Osmolality,Calculated 285.4 MOS/KG (273-304); Potassium 4.3 MMOL/L (3.5-5.1); Total Protein 6.6 G/DL (6.4-8.3)
[2018-12-30] MEDS ORDERED: cefTRIAXone 1,000 MG in SYRINGE 1 EACH IV SCH (10:30)
[2018-12-30] MEDS ORDERED: ALBUTEROL/IPRATROPIUM 3 ML NEB RESP TX PRN (10:31)
[2018-12-30] MEDS ORDERED: NITROGLYCERIN SL 0.4 MG TABLET SL PRN (13:16)
[2018-12-30] MEDS: AZITHROMYCIN INJ 500 MG in SODIUM CHLORIDE 0.9% 250 ML IV SCH (13:39)
[2018-12-30] MEDS: ALBUTEROL/IPRATROPIUM 3 ML NEB RESP TX SCH ×2 (14:13→19:39)
[2018-12-30] MEDS: GABAPENTIN 600 MG TABLET PO SCH ×2 (16:14→20:23)
[2018-12-30] MEDS: CARVEDILOL 25 MG TABLET PO SCH (17:05)
[2018-12-30 17:27] LABS: Apearance,Urine CLEAR (Clear); Bilirubin,Urine Negative (Negative); Blood, Urine Negative (Negative); Glucose,Urine (UA) Negative (Negative); Hyaline Casts,Urine 3 /LPF (0-3); Ketones,Urine Negative (Negative); Mucus,Urine Occasional /LPF (Occasional); Nitrite,Urine Negative (Negative); Protein,Urine >=500 MG/DL; RBC,Urine 3 /HPF (0-4); Urine Color Yellow (Yellow); Urine Specific Gravity 1.018 (1.001-1.035); Urine Urobilinogen < 2.0 EU/DL (0.2-1.0); WBC,Urine <1 /HPF (0-6)
[2018-12-30] MEDS: traZODone 50 MG TABLET PO SCH (20:22)
[2018-12-30] MEDS: cefTRIAXone 1,000 MG in SYRINGE 1 EACH IV SCH (20:23)
[2018-12-30] MEDS: SERTRALINE 25 MG TABLET PO SCH (20:23)
[2018-12-31] MEDS: ALBUTEROL/IPRATROPIUM 3 ML NEB RESP TX SCH ×4 (00:31→19:35)
[2018-12-31 05:01] LABS: Basophils % 0.4 % (0.0-0.8); Eosinophils # 0.2 10*3/uL (0.0-0.87); Eosinophils % 3.9 % (0.00-10.9); Hematocrit 39.4 VOL% (42.0-52.0); Hemoglobin 12.1 GM/DL (14.0-18.0); Immature Granulocytes % 0.4 %; Immature Granulocytes Absolute 0.02 #; Lymphocytes # 0.6 10*3/uL (1.4-4.0); Lymphocytes % 11.8 % (21.2-54.2); Mean Corpuscular HGB Conc 30.7 GM/DL (32-36); Mean Corpuscular Hemoglobin 32 PG (27-34); Mean Corpuscular Volume 103.7 FL (87-102); Mean Platelet Volume 11.6 FL (9.6-12.0); Monocytes # 0.5 10*3/uL (0.11-0.8); Monocytes % 8.7 % (1.7-12.7); Neutrophils # 4.1 10*3/uL (1.4-7.4); Neutrophils % 74.8 % (38.7-73.9); Platelet Count 105 T/CUMM (130-400); White Blood Count 5.4 T/CUMM (4-12)
[2018-12-31 05:36] LABS: Calcium 8.5 MG/DL (8.5-10.1); Osmolality,Calculated 291.1 MOS/KG (273-304); Potassium 4.5 MMOL/L (3.5-5.1); Risk Ratio 3.16; Thyroid Stimulating Hormone 1.03 uIU/ml (0.358-3.74)
[2018-12-31 05:46] LABS: Band Neutrophils 1 % (0-10); Eosinophils 5 % (0-10); Lymphocytes 12 % (20-55); Segmented Neutrophils 78 % (50-85); Total Cells Counted 100
[2018-12-31 05:47] LABS: Hypochromasia Slight; Macrocytosis Slight; Ovalocytes Slight
[2018-12-31] MEDS: ENOXAPARIN 40 MG/0.4 ML SYRINGE SUBCUT SCH (08:22)
[2018-12-31] MEDS: GABAPENTIN 600 MG TABLET PO SCH ×3 (08:23→20:02)
[2018-12-31] MEDS: ASPIRIN EC 81 MG TABLET PO SCH (08:23)
[2018-12-31] MEDS: cefTRIAXone 1,000 MG in SYRINGE 1 EACH IV SCH (08:23)
[2018-12-31] MEDS: FINASTERIDE 5 MG TABLET PO SCH (08:23)
[2018-12-31] MEDS: PANTOPRAZOLE 40 MG TABLET PO SCH (08:24)
[2018-12-31] MEDS: ALLOPURINOL 100 MG TABLET PO SCH (08:24)
[2018-12-31] MEDS: MULTIVITAMIN (CENTRUM) TABLET PO SCH (08:24)
[2018-12-31] MEDS: CARVEDILOL 25 MG TABLET PO SCH ×2 (08:24→16:21)
[2018-12-31] MEDS ORDERED: FUROSEMIDE 40 MG/4 ML VIAL IV SCH (09:00)
[2018-12-31] MEDS: AZITHROMYCIN INJ 500 MG in SODIUM CHLORIDE 0.9% 250 ML IV SCH (12:12)
[2018-12-31] MEDS: ONDANSETRON 4 MG/2 ML VIAL IV PRN (13:47)
[2018-12-31] MEDS: POLYETHYLENE GLYCOL POWDER 17 GM PACK PO SCH (16:19)
[2018-12-31] MEDS: traZODone 50 MG TABLET PO SCH (20:02)
[2018-12-31] MEDS: SERTRALINE 25 MG TABLET PO SCH (20:02)
[2019-01-01] MEDS: ALBUTEROL/IPRATROPIUM 3 ML NEB RESP TX SCH ×4 (00:24→19:34)
[2019-01-01 00:51] LABS: Protein/Creatinine Ratio,Urine 0.3 RATIO
[2019-01-01 04:39] LABS: Basophils % 0.4 % (0.0-0.8); Eosinophils # 0.3 10*3/uL (0.0-0.87); Eosinophils % 5.4 % (0.00-10.9); Hematocrit 37.3 VOL% (42.0-52.0); Hemoglobin 11.4 GM/DL (14.0-18.0); Immature Granulocytes % 0.4 %; Immature Granulocytes Absolute 0.02 #; Lymphocytes # 0.8 10*3/uL (1.4-4.0); Lymphocytes % 13.9 % (21.2-54.2); Mean Corpuscular HGB Conc 30.6 GM/DL (32-36); Mean Corpuscular Hemoglobin 32 PG (27-34); Mean Corpuscular Volume 103.3 FL (87-102); Mean Platelet Volume 10.5 FL (9.6-12.0); Monocytes # 0.5 10*3/uL (0.11-0.8); Monocytes % 8.7 % (1.7-12.7); Neutrophils # 3.8 10*3/uL (1.4-7.4); Neutrophils % 71.2 % (38.7-73.9); Platelet Count 171 T/CUMM (130-400); Red Blood Count 3.61 MC/CUMM (3.8-5.5); Red Cell Distribution Width 14.6 % (9.3-17.3); White Blood Count 5.4 T/CUMM (4-12)
[2019-01-01 05:04] LABS: Calcium 8.4 MG/DL (8.5-10.1); Osmolality,Calculated 289.4 MOS/KG (273-304); Potassium 4.6 MMOL/L (3.5-5.1)
[2019-01-01] MEDS: POLYETHYLENE GLYCOL POWDER 17 GM PACK PO SCH (08:53)
[2019-01-01] MEDS: ASPIRIN EC 81 MG TABLET PO SCH (08:54)
[2019-01-01] MEDS: FINASTERIDE 5 MG TABLET PO SCH (08:54)
[2019-01-01] MEDS: PANTOPRAZOLE 40 MG TABLET PO SCH (08:54)
[2019-01-01] MEDS: ATORVASTATIN 10 MG TABLET PO SCH (08:55)
[2019-01-01] MEDS: GABAPENTIN 600 MG TABLET PO SCH ×3 (08:55→20:48)
[2019-01-01] MEDS: ALLOPURINOL 100 MG TABLET PO SCH (08:55)
[2019-01-01] MEDS: MULTIVITAMIN (CENTRUM) TABLET PO SCH (08:56)
[2019-01-01] MEDS: AZITHROMYCIN 250 MG TABLET PO SCH (08:56)
[2019-01-01] MEDS: CARVEDILOL 25 MG TABLET PO SCH ×2 (08:56→17:52)
[2019-01-01] MEDS: ENOXAPARIN 40 MG/0.4 ML SYRINGE SUBCUT SCH (08:57)
[2019-01-01] MEDS: cefTRIAXone 2,000 MG in SYRINGE 1 EACH IV SCH (08:57)
[2019-01-01] MEDS: SERTRALINE 25 MG TABLET PO SCH (20:48)
[2019-01-01] MEDS: traZODone 50 MG TABLET PO SCH (20:50)
[2019-01-02] MEDS: ALBUTEROL/IPRATROPIUM 3 ML NEB RESP TX SCH ×4 (00:45→19:40)
[2019-01-02 04:57] LABS: Calcium 8.6 MG/DL (8.5-10.1); Osmolality,Calculated 291.5 MOS/KG (273-304); Potassium 4.8 MMOL/L (3.5-5.1)
[2019-01-02] MEDS: ONDANSETRON 4 MG/2 ML VIAL IV PRN ×2 (06:20→22:48)
[2019-01-02] MEDS: cefTRIAXone 2,000 MG in SYRINGE 1 EACH IV SCH (08:54)
[2019-01-02] MEDS: POLYETHYLENE GLYCOL POWDER 17 GM PACK PO SCH (08:54)
[2019-01-02] MEDS: AZITHROMYCIN 250 MG TABLET PO SCH (08:59)
[2019-01-02] MEDS: FINASTERIDE 5 MG TABLET PO SCH (09:00)
[2019-01-02] MEDS: PANTOPRAZOLE 40 MG TABLET PO SCH (09:00)
[2019-01-02] MEDS: FUROSEMIDE 20 MG TABLET PO SCH (09:00)
[2019-01-02] MEDS: ASPIRIN EC 81 MG TABLET PO SCH (09:00)
[2019-01-02] MEDS: CARVEDILOL 25 MG TABLET PO SCH ×2 (09:00→16:50)
[2019-01-02] MEDS: ATORVASTATIN 10 MG TABLET PO SCH (09:00)
[2019-01-02] MEDS: GABAPENTIN 600 MG TABLET PO SCH ×3 (09:00→20:36)
[2019-01-02] MEDS: ALLOPURINOL 100 MG TABLET PO SCH (09:00)
[2019-01-02] MEDS: ENOXAPARIN 40 MG/0.4 ML SYRINGE SUBCUT SCH (09:01)
[2019-01-02] MEDS: MULTIVITAMIN (CENTRUM) TABLET PO SCH (09:01)
[2019-01-02] MEDS: SERTRALINE 25 MG TABLET PO SCH (20:36)
[2019-01-02] MEDS: traZODone 50 MG TABLET PO SCH (20:36)
[2019-01-03] MEDS: ALBUTEROL/IPRATROPIUM 3 ML NEB RESP TX SCH ×4 (00:12→19:09)
[2019-01-03] MEDS: ONDANSETRON 4 MG/2 ML VIAL IV PRN (04:40)
[2019-01-03 05:22] LABS: Calcium 8.2 MG/DL (8.5-10.1); Osmolality,Calculated 290.8 MOS/KG (273-304); Potassium 4.9 MMOL/L (3.5-5.1)
[2019-01-03 05:27] LABS: Basophils % 0.4 % (0.0-0.8); Eosinophils # 0.2 10*3/uL (0.0-0.87); Eosinophils % 3.7 % (0.00-10.9); Hematocrit 38.2 VOL% (42.0-52.0); Hemoglobin 11.8 GM/DL (14.0-18.0); Immature Granulocytes % 0.2 %; Immature Granulocytes Absolute 0.01 #; Lymphocytes # 0.6 10*3/uL (1.4-4.0); Lymphocytes % 12.7 % (21.2-54.2); Mean Corpuscular HGB Conc 30.9 GM/DL (32-36); Mean Corpuscular Hemoglobin 32 PG (27-34); Mean Corpuscular Volume 102.1 FL (87-102); Mean Platelet Volume 10.6 FL (9.6-12.0); Monocytes # 0.5 10*3/uL (0.11-0.8); Monocytes % 10.9 % (1.7-12.7); Neutrophils # 3.3 10*3/uL (1.4-7.4); Neutrophils % 72.1 % (38.7-73.9); Platelet Count 189 T/CUMM (130-400); Red Blood Count 3.74 MC/CUMM (3.8-5.5); Red Cell Distribution Width 14.8 % (9.3-17.3); White Blood Count 4.6 T/CUMM (4-12)
[2019-01-03] MEDS ORDERED: BISACODYL 10 MG SUPP RECTAL ONE (07:18)
[2019-01-03] MEDS: AZITHROMYCIN 250 MG TABLET PO SCH (09:04)
[2019-01-03] MEDS: FINASTERIDE 5 MG TABLET PO SCH (09:04)
[2019-01-03] MEDS: CARVEDILOL 25 MG TABLET PO SCH ×2 (09:05→16:28)
[2019-01-03] MEDS: ALLOPURINOL 100 MG TABLET PO SCH (09:05)
[2019-01-03] MEDS: ASPIRIN EC 81 MG TABLET PO SCH (09:05)
[2019-01-03] MEDS: FUROSEMIDE 20 MG TABLET PO SCH (09:05)
[2019-01-03] MEDS: PANTOPRAZOLE 40 MG TABLET PO SCH (09:05)
[2019-01-03] MEDS: MULTIVITAMIN (CENTRUM) TABLET PO SCH (09:05)
[2019-01-03] MEDS: ATORVASTATIN 10 MG TABLET PO SCH (09:05)
[2019-01-03] MEDS: POLYETHYLENE GLYCOL POWDER 17 GM PACK PO SCH ×2 (09:06→21:13)
[2019-01-03] MEDS: ENOXAPARIN 30 MG/0.3 ML SYRINGE SUBCUT SCH (09:06)
[2019-01-03] MEDS: cefTRIAXone 2,000 MG in SYRINGE 1 EACH IV SCH (09:07)
[2019-01-03] MEDS: GABAPENTIN 600 MG TABLET PO SCH ×3 (09:12→21:13)
[2019-01-03] MEDS: traZODone 50 MG TABLET PO SCH (21:13)
[2019-01-03] MEDS: SERTRALINE 25 MG TABLET PO SCH (21:13)
[2019-01-04] MEDS: ALBUTEROL/IPRATROPIUM 3 ML NEB RESP TX SCH ×4 (00:35→19:03)
[2019-01-04] MEDS: ONDANSETRON 4 MG/2 ML VIAL IV PRN (03:51)
[2019-01-04 04:59] LABS: Calcium 8.8 MG/DL (8.5-10.1); Osmolality,Calculated 285.2 MOS/KG (273-304); Potassium 5.1 MMOL/L (3.5-5.1)
[2019-01-04] MEDS: ENOXAPARIN 30 MG/0.3 ML SYRINGE SUBCUT SCH (08:40)
[2019-01-04] MEDS: PANTOPRAZOLE 40 MG TABLET PO SCH (08:41)
[2019-01-04] MEDS: ASPIRIN EC 81 MG TABLET PO SCH (08:41)
[2019-01-04] MEDS: POLYETHYLENE GLYCOL POWDER 17 GM PACK PO SCH ×2 (08:41→21:03)
[2019-01-04] MEDS: MULTIVITAMIN (CENTRUM) TABLET PO SCH (08:41)
[2019-01-04] MEDS: ALLOPURINOL 100 MG TABLET PO SCH (08:41)
[2019-01-04] MEDS: GABAPENTIN 600 MG TABLET PO SCH ×3 (08:41→21:02)
[2019-01-04] MEDS: FINASTERIDE 5 MG TABLET PO SCH (08:42)
[2019-01-04] MEDS: CARVEDILOL 25 MG TABLET PO SCH ×2 (08:42→17:12)
[2019-01-04] MEDS: ATORVASTATIN 10 MG TABLET PO SCH (08:42)
[2019-01-04] MEDS: FUROSEMIDE 20 MG TABLET PO SCH (08:42)
[2019-01-04] MEDS: CEFUROXIME 500 MG TABLET PO SCH ×2 (08:47→21:02)
[2019-01-04] MEDS: SERTRALINE 25 MG TABLET PO SCH (21:02)
[2019-01-04] MEDS: traZODone 50 MG TABLET PO SCH (21:03)
[2019-01-04] MEDS: ACETAMINOPHEN 325 MG TABLET PO PRN (21:04)
[2019-01-05] MEDS: ALBUTEROL/IPRATROPIUM 3 ML NEB RESP TX SCH ×4 (00:22→19:30)
[2019-01-05 06:23] LABS: Basophils % 0.7 % (0.0-0.8); Eosinophils # 0.2 10*3/uL (0.0-0.87); Eosinophils % 4.3 % (0.00-10.9); Hematocrit 35.9 VOL% (42.0-52.0); Hemoglobin 10.9 GM/DL (14.0-18.0); Immature Granulocytes % 0.2 %; Immature Granulocytes Absolute 0.01 #; Lymphocytes # 0.5 10*3/uL (1.4-4.0); Lymphocytes % 12.3 % (21.2-54.2); Mean Corpuscular HGB Conc 30.4 GM/DL (32-36); Mean Corpuscular Hemoglobin 32 PG (27-34); Mean Corpuscular Volume 104.1 FL (87-102); Mean Platelet Volume 10.3 FL (9.6-12.0); Monocytes # 0.5 10*3/uL (0.11-0.8); Monocytes % 12.3 % (1.7-12.7); NRBC # 0.02 10*3/uL; Neutrophils # 2.9 10*3/uL (1.4-7.4); Neutrophils % 70.2 % (38.7-73.9); Platelet Count 184 T/CUMM (130-400); Red Blood Count 3.45 MC/CUMM (3.8-5.5); Red Cell Distribution Width 14.6 % (9.3-17.3); White Blood Count 4.2 T/CUMM (4-12)
[2019-01-05 06:34] LABS: Alanine Aminotransferase 46 U/L (16-61); Albumin 3.3 G/DL (3.4-5.0); Alkaline Phosphatase 83 U/L (45-117); Aspartate Amino Transferase 19 U/L (0-37); Bilirubin,Total < 0.39 MG/DL (0.2-1.0); Blood Urea Nitrogen 63 MG/DL (7-18); Calcium 8.3 MG/DL (8.5-10.1); Glucose 109 MG/DL (74-106); Osmolality,Calculated 284.4 MOS/KG (273-304); Potassium 4.6 MMOL/L (3.5-5.1); Sodium 133 MMOL/L (136-145); Total Protein 6.1 G/DL (6.4-8.3)
[2019-01-05] MEDS: ATORVASTATIN 10 MG TABLET PO SCH (08:24)
[2019-01-05] MEDS: ALLOPURINOL 100 MG TABLET PO SCH (08:24)
[2019-01-05] MEDS: POLYETHYLENE GLYCOL POWDER 17 GM PACK PO SCH ×2 (08:24→20:26)
[2019-01-05] MEDS: ASPIRIN EC 81 MG TABLET PO SCH (08:24)
[2019-01-05] MEDS: CEFUROXIME 500 MG TABLET PO SCH ×2 (08:24→20:25)
[2019-01-05] MEDS: GABAPENTIN 600 MG TABLET PO SCH ×3 (08:25→20:25)
[2019-01-05] MEDS: PANTOPRAZOLE 40 MG TABLET PO SCH (08:25)
[2019-01-05] MEDS: CARVEDILOL 25 MG TABLET PO SCH ×2 (08:25→16:34)
[2019-01-05] MEDS: ENOXAPARIN 30 MG/0.3 ML SYRINGE SUBCUT SCH (08:25)
[2019-01-05] MEDS: FINASTERIDE 5 MG TABLET PO SCH (08:25)
[2019-01-05] MEDS: MULTIVITAMIN (CENTRUM) TABLET PO SCH (08:25)
[2019-01-05] MEDS: ONDANSETRON 4 MG/2 ML VIAL IV PRN ×2 (20:24→23:31)
[2019-01-05] MEDS: traZODone 50 MG TABLET PO SCH (20:25)
[2019-01-05] MEDS: SERTRALINE 25 MG TABLET PO SCH (20:26)
[2019-01-05] MEDS: ACETAMINOPHEN 325 MG TABLET PO PRN (20:37)
[2019-01-05] MEDS ORDERED: MORPHINE 4 MG/1 ML VIAL IV PRN (23:18)
[2019-01-05] MEDS ORDERED: ASPIRIN CHEW 81 MG TABLET PO ONE (23:18)
[2019-01-05 23:27] LABS: Basophils % 0.3 % (0.0-0.8); Eosinophils # 0.2 10*3/uL (0.0-0.87); Eosinophils % 3.6 % (0.00-10.9); Hemoglobin 11.8 GM/DL (14.0-18.0); Immature Granulocytes % 0.3 %; Immature Granulocytes Absolute 0.02 #; Lymphocytes # 0.6 10*3/uL (1.4-4.0); Lymphocytes % 10.9 % (21.2-54.2); Mean Corpuscular HGB Conc 31.1 GM/DL (32-36); Mean Corpuscular Hemoglobin 32 PG (27-34); Mean Corpuscular Volume 103.5 FL (87-102); Monocytes # 0.6 10*3/uL (0.11-0.8); Monocytes % 10.7 % (1.7-12.7); Neutrophils # 4.4 10*3/uL (1.4-7.4); Neutrophils % 74.2 % (38.7-73.9); Platelet Count 188 T/CUMM (130-400); Red Blood Count 3.67 MC/CUMM (3.8-5.5); Red Cell Distribution Width 14.7 % (9.3-17.3); White Blood Count 5.9 T/CUMM (4-12)
[2019-01-05 23:54] LABS: Albumin 3.5 G/DL (3.4-5.0); Bilirubin,Total 0.4 MG/DL (0.2-1.0); Calcium 8.6 MG/DL (8.5-10.1); Osmolality,Calculated 285.4 MOS/KG (273-304); Potassium 4.9 MMOL/L (3.5-5.1); Total Protein 6.3 G/DL (6.4-8.3)
[2019-01-06] MEDS: ALBUTEROL/IPRATROPIUM 3 ML NEB RESP TX SCH ×3 (01:40→12:01)
[2019-01-06 06:42] LABS: Calcium 8.6 MG/DL (8.5-10.1); Osmolality,Calculated 289.1 MOS/KG (273-304); Potassium 4.9 MMOL/L (3.5-5.1)
[2019-01-06] MEDS: CARVEDILOL 25 MG TABLET PO SCH (07:59)
[2019-01-06] MEDS: ATORVASTATIN 10 MG TABLET PO SCH (07:59)
[2019-01-06] MEDS: GABAPENTIN 600 MG TABLET PO SCH (07:59)
[2019-01-06] MEDS: CEFUROXIME 500 MG TABLET PO SCH (07:59)
[2019-01-06] MEDS: POLYETHYLENE GLYCOL POWDER 17 GM PACK PO SCH (07:59)
[2019-01-06] MEDS: ASPIRIN EC 81 MG TABLET PO SCH (07:59)
[2019-01-06] MEDS: FINASTERIDE 5 MG TABLET PO SCH (07:59)
[2019-01-06] MEDS: MULTIVITAMIN (CENTRUM) TABLET PO SCH (07:59)
[2019-01-06] MEDS: ALLOPURINOL 100 MG TABLET PO SCH (08:00)
[2019-01-06] MEDS: ENOXAPARIN 30 MG/0.3 ML SYRINGE SUBCUT SCH (08:00)
[2019-01-06] MEDS: PANTOPRAZOLE 40 MG TABLET PO SCH (08:00)
[2019-01-06] MEDS: ACETAMINOPHEN 325 MG TABLET PO PRN (08:03)
[2019-01-06 13:08] VITALS: BP 122/70
[2019-01-06] MEDS: ONDANSETRON 4 MG/2 ML VIAL IV PRN (13:34)
== END 2019-01-06 14:44 | disposition home health service (06) | DRG 193 ==
LOC: N.ED 07:12 → N.EDINP 10:19 → SUATTDRO 10:19 → N.5E 10:57
PROVIDERS: ADMIT Hospitalist; ATTEND Internal Medicine

== ENCOUNTER 2019-01-10 11:28 | Inpatient (IN) ==
[2019-01-10 11:58] LABS: Basophils % 0.7 % (0.0-0.8); Eosinophils # 0.2 10*3/uL (0.0-0.87); Eosinophils % 3.5 % (0.00-10.9); Hematocrit 40.6 VOL% (42.0-52.0); Hemoglobin 12.5 GM/DL (14.0-18.0); Immature Granulocytes % 0.5 %; Immature Granulocytes Absolute 0.03 #; Lymphocytes # 0.5 10*3/uL (1.4-4.0); Lymphocytes % 8.8 % (21.2-54.2); Mean Corpuscular HGB Conc 30.8 GM/DL (32-36); Mean Corpuscular Hemoglobin 32 PG (27-34); Mean Corpuscular Volume 104.6 FL (87-102); Mean Platelet Volume 9.9 FL (9.6-12.0); Monocytes # 0.6 10*3/uL (0.11-0.8); Monocytes % 10.6 % (1.7-12.7); Neutrophils # 4.6 10*3/uL (1.4-7.4); Neutrophils % 75.9 % (38.7-73.9); Platelet Count 175 T/CUMM (130-400); Red Blood Count 3.88 MC/CUMM (3.8-5.5); Red Cell Distribution Width 15.4 % (9.3-17.3); White Blood Count 6.1 T/CUMM (4-12)
[2019-01-10 12:23] LABS: Albumin 3.3 G/DL (3.4-5.0); Bilirubin,Total 0.5 MG/DL (0.2-1.0); Osmolality,Calculated 292.3 MOS/KG (273-304); Potassium 4.7 MMOL/L (3.5-5.1); Total Protein 6.3 G/DL (6.4-8.3)
[2019-01-10] MEDS ORDERED: FUROSEMIDE 100 MG/10 ML VIAL IV STA (12:25)
[2019-01-10 12:28] LABS: Troponin I 0.085 NG/ML (0.00-0.045)
[2019-01-10] MEDS ORDERED: diphenhydrAMINE CAP 25 MG CAPSULE PO PRN (13:36)
[2019-01-10] MEDS ORDERED: NICOTINE 21 MG/24 HR PATCH TRANSDERM PRN (13:36)
[2019-01-10] MEDS ORDERED: ACETAMINOPHEN 325 MG TABLET PO PRN (13:36)
[2019-01-10] MEDS ORDERED: ONDANSETRON 4 MG/2 ML VIAL IV PRN (13:36)
[2019-01-10] MEDS ORDERED: guaiFENesin/DM ER 600-30 MG TABLET PO PRN (13:36)
[2019-01-10] MEDS ORDERED: MORPHINE 4 MG/1 ML VIAL IV PRN (13:36)
[2019-01-10] MEDS ORDERED: NITROGLYCERIN SL 0.4 MG TABLET SL PRN (16:15)
[2019-01-10] MEDS: traZODone 50 MG TABLET PO SCH (20:38)
[2019-01-10] MEDS: FERROUS SULFATE 325 MG TABLET PO SCH (20:38)
[2019-01-10] MEDS: CEFUROXIME 500 MG TABLET PO SCH (20:38)
[2019-01-10] MEDS: HEPARIN 5,000 UNIT/1 ML VIAL SUBCUT SCH (20:38)
[2019-01-10] MEDS: SERTRALINE 25 MG TABLET PO SCH (20:39)
[2019-01-10] MEDS: FUROSEMIDE 40 MG/4 ML VIAL IV SCH (20:39)
[2019-01-10] MEDS: GABAPENTIN 600 MG TABLET PO SCH (20:39)
[2019-01-10] MEDS: PANTOPRAZOLE 40 MG TABLET PO SCH (20:39)
[2019-01-11 05:34] LABS: Albumin 3.2 G/DL (3.4-5.0); Calcium 8.7 MG/DL (8.5-10.1); Osmolality,Calculated 298.8 MOS/KG (273-304); Potassium 4.2 MMOL/L (3.5-5.1)
[2019-01-11] MEDS ORDERED: PANTOPRAZOLE 40 MG TABLET PO SCH (09:00)
[2019-01-11] MEDS: FUROSEMIDE 40 MG/4 ML VIAL IV SCH ×2 (09:05→15:26)
[2019-01-11] MEDS: POLYETHYLENE GLYCOL POWDER 17 GM PACK PO SCH (09:05)
[2019-01-11] MEDS: GABAPENTIN 600 MG TABLET PO SCH ×3 (09:06→21:32)
[2019-01-11] MEDS: FINASTERIDE 5 MG TABLET PO SCH (09:06)
[2019-01-11] MEDS: ASPIRIN EC 81 MG TABLET PO SCH (09:06)
[2019-01-11] MEDS: CEFUROXIME 500 MG TABLET PO SCH ×2 (09:06→21:31)
[2019-01-11] MEDS: ALLOPURINOL 100 MG TABLET PO SCH (09:06)
[2019-01-11] MEDS: MULTIVITAMIN (CENTRUM) TABLET PO SCH (09:06)
[2019-01-11] MEDS: ATORVASTATIN 10 MG TABLET PO SCH (09:07)
[2019-01-11] MEDS: FERROUS SULFATE 325 MG TABLET PO SCH ×3 (09:07→21:32)
[2019-01-11] MEDS: HEPARIN 5,000 UNIT/1 ML VIAL SUBCUT SCH ×3 (09:07→21:33)
[2019-01-11] MEDS: traZODone 50 MG TABLET PO SCH (20:14)
[2019-01-11] MEDS: SERTRALINE 25 MG TABLET PO SCH (21:32)
[2019-01-11] MEDS: PANTOPRAZOLE 40 MG TABLET PO SCH (21:32)
[2019-01-12 05:33] LABS: Calcium 8.5 MG/DL (8.5-10.1); Osmolality,Calculated 295.1 MOS/KG (273-304); Potassium 4.2 MMOL/L (3.5-5.1)
[2019-01-12 07:51] VITALS: BP 147/78
[2019-01-12] MEDS: GABAPENTIN 600 MG TABLET PO SCH (08:23)
[2019-01-12] MEDS: FERROUS SULFATE 325 MG TABLET PO SCH (08:23)
[2019-01-12] MEDS: MULTIVITAMIN (CENTRUM) TABLET PO SCH (08:23)
[2019-01-12] MEDS: FUROSEMIDE 40 MG/4 ML VIAL IV SCH (08:23)
[2019-01-12] MEDS: ATORVASTATIN 10 MG TABLET PO SCH (08:23)
[2019-01-12] MEDS: CEFUROXIME 500 MG TABLET PO SCH (08:23)
[2019-01-12] MEDS: ALLOPURINOL 100 MG TABLET PO SCH (08:23)
[2019-01-12] MEDS: FINASTERIDE 5 MG TABLET PO SCH (08:23)
[2019-01-12] MEDS: ASPIRIN EC 81 MG TABLET PO SCH (08:23)
[2019-01-12] MEDS: HEPARIN 5,000 UNIT/1 ML VIAL SUBCUT SCH (08:24)
[2019-01-12] MEDS: POLYETHYLENE GLYCOL POWDER 17 GM PACK PO SCH (08:37)
== END 2019-01-12 12:01 | disposition home health service (06) | DRG 291 ==
LOC: N.ED 11:28 → N.EDINP 11:28 → N.TELES 15:49
PROVIDERS: ADMIT Internal Medicine; ATTEND Internal Medicine